=== PATIENT | female | born 2005 | race Caucasian/White ===

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

== ENCOUNTER → 2024-01-08 | Outpatient (CLI) | payer MEDICAID, SELFPAY ==
[2024-01-12 21:07] LABS: Chlamydia By Nucleic Acid AMP Negative (Negative); Gonococcus By Nucleic Acid AMP Negative (Negative)
== END | disposition home or self-care (01) ==
LOC: LABSPEC 14:58
PROVIDERS: Referring Provider Nurse Practitioner Women's Health; Visit Provider Nurse Practitioner Women's Health
DX: Z11.3 Encounter for screening for infections with a predominantly sexual mode of transmission (principal)
CPT/HCPCS: 87491; 87591

== ENCOUNTER 2024-02-26 00:46 | Emergency (ER) | payer MEDICAID, SELFPAY ==
[2024-02-26 00:47] VITALS: BP 154/92; PULSE 121; RESP 20; TEMP 36.6; O2SAT 98; BMI 30.3
[2024-02-26 01:46] VITALS: BP 127/61; PULSE 92; RESP 16; O2SAT 99
--- NOTE | 2024-02-26 02:01 | EX.ED.DYSGE1 ---
HPI History of Present Illness Chief Complaint: Allergic Reaction Narrative Narrative: Chief complaint and HPI: Allergic reaction/urticaria. 18-year-old female presents for evaluation of urticaria/allergic reaction. Patient states that she got into her bed this evening when she developed diffuse urticaria. Urticaria is pruritic. She denies any shortness of breath, wheezing, stridor, nausea, vomiting, abdominal pain, chest pain, cough. Patient denies any new medications or foods. Denies any new body products or detergents/soaps. Patient did not take anything prior to arrival. Review of systems: See HPI Medications: As listed on the chart Allergies: As listed on the chart PFSH: Per chart Vital signs: As listed on the chart. Reviewed. Physical exam: Gen: A&O x3, NAD Head: Normocephalic, atraumatic Eyes: No sclera icterus, conjunctiva clear, PERRL, EOMI ENT: Moist mucous membranes, posterior oropharynx unremarkable, uvula midline, tonsils not enlarged, no tongue enlargement, tolerating secretions, no angioedema Neck: Trachea midline, No JVD, Full ROM, no swelling CV: RRR, no murmurs, no peripheral edema Resp: Lungs CTA BL, no w/r/c, no stridor GI: Abd soft, non-distended, non-tender, no r/r/g Musc: Full ROM, no deformity Skin: Warm, dry, scattered urticaria mostly on the bilateral arms and back Neuro: Alert, oriented, grossly intact, sensation intact Psych: Cooperative, appropriate mood and affect [facility] Medical History (Updated 02/26/24 @ 01:[address] Jaime Calderon, ) Severe pre-eclampsia delivery delivered Not immune to rubella Decreased movement Pre-eclampsia Gestational HTN Unknown varicella vaccination status Instability of right patellofemoral joint Right knee pain Instability of left patellofemoral joint Left knee pain Home Medications ?Medication ?Instructions ?Recorded ?Last Taken ?Type norethindrone (contraceptive) 0.35 0.35 mg PO QDAY #84 tabs 01/08/24 Unknown Rx mg tablet (Ashley) prednisone 20 mg tablet 40 mg (2 x 20 mg) PO DAILY 5 days 02/26/24 Unknown Rx #10 tabs Allergy/AdvReac Type Severity Reaction Status Date / Time No Known Allergies Allergy Verified 02/26/24 00:47 Social History adopted: No household members: family current occupational status: employed 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 current occupational exposures/hazards: No pets and animals: Yes (Avoid litterbox) pets and animals: cat(s) and dog(s) history of recent travel: No sexually active: Yes Smoking Status: Former smoker Tobacco: How many years used: 6 Electronic Cigarette Use: with nicotine how long ago did patient quit smokin month ago alcohol intake: current alcohol intake frequency: holidays/special occasions only details: not while substance use type: marijuana well-balanced diet: daily or most days caffeine: No eating out: 1-3 times/week during the past year weight has: remained stable what type of physical activity do you participate in: none dimple/restorationist: None seatbelt use: always do you feel safe at home: Yes additional social history: FOB Chad Scott- not really involved EXAM Physical Exam Const Vital Signs: 02/26/24 00:47 02/26/24 01:46 02/26/24 02:05 Temperature 97.9 F 98.8 F Temperature Source Oral Pulse Rate 121 H 92 77 Respiratory Rate 20 H 16 18 Blood Pressure 154/92 H 127/61 H 122/86 H Blood Pressure Mean 112 83 98 Pulse Ox 98 99 99 Oxygen Delivery Method Room Air Room Air MDM MDM MDM Narrative Medical decision making narrative: 18-year-old female presents for evaluation of urticaria/allergic reaction. See physical exam findings. Patient has diffuse urticaria. No signs or symptoms of anaphylactic reaction. Nontoxic. No acute distress. Patient has not taken anything for her pruritus or urticaria. Patient given p.o. Benadryl as well as p.o. prednisone. She was educated to go home and wash her bedding as this may have been the cause of her allergic reaction. Follow-up with primary care physician. She was educated to take [id number] Benadryl as needed. Will put her on a 5-day course of prednisone. She confirmed understanding the plan. Patient stable to discharge home. Impression: 1. Allergic reaction, unknown source 2. Urticaria Discharge Plan Triage Chief Complaint: Allergic Reaction ED Provider: Jaime Calderon Dx/Rx/DC Orders Clinical Impression: Allergic reaction Instructions: ED General Allergic Reactions Prescriptions: New prednisone 20 mg tablet 40 mg PO DAILY 5 Days Qty: 10 0RF No Action norethindrone (contraceptive) [Ashley] 0.35 mg tablet 0.35 mg PO QDAY Qty: 84 4RF Rx Instructions: start day 1 of menstrual cycle Stand Alone Forms: ED Work / School Excuse Primary Care Provider: Care Physician,No Primary Referrals: Cristino Waters MD [Med Staff - Active Staff] - Care Physician,No Primary [Primary Care Provider] - Activity Restrictions/Additional Instructions: Return back to the emergency department if symptoms change or worsen. Follow-up with your PCP. If you do not have 1 follow-up with the 1 listed above. Lzta-hrc-[id number] Benadryl as needed for itching. Print Language: Prydeinig Disposition Disposition: Home, Self Care Discharge Date/Time: 02/26/24 02:11
[2024-02-26] MEDS: predniSONE 20 MG Tablet 40 MG PO (02:04)
[2024-02-26] MEDS: DiphenhydrAMINE 25 MG Capsule 50 MG PO (02:04)
[2024-02-26 02:05] VITALS: BP 122/86; PULSE 77; RESP 18; TEMP 37.1; O2SAT 99
== END 2024-02-26 02:11 | disposition home or self-care (01) ==
LOC: ED 02:08
PROVIDERS: Emergency Provider Surgery; Visit Provider Surgery
DX: L50.0 Allergic urticaria (principal); Z87.891 Personal history of nicotine dependence
CPT/HCPCS: 99284; A4216

== ENCOUNTER 2024-09-25 15:32 | Emergency (ER) | payer MEDICAID, SELFPAY ==
[2024-09-25 15:32] VITALS: BP 160/98; PULSE 120; RESP 18; TEMP 37.1; O2SAT 99; BMI 27.6
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
--- NOTE | 2024-09-25 15:45 | RAD_ITS ---
PROCEDURE: KNEE 4 OR MORE VIEWS 09/25/2024 REASON FOR EXAM: INJURY/PAIN TECHNIQUE: KNEE 4 OR MORE VIEWS COMPARISON: 05/27/2022 FINDINGS: BONES: Sliver of bone measuring 4.6 mm in the region of the posterior joint seen on the lateral view. This is not seen on the other views and was not present on the prior study. Old fracture in the medial aspect of the patella. JOINTS: No significant joint effusion. No dislocation. The joint spaces are preserved. SOFT TISSUES: The soft tissues are unremarkable. RAD/Knee 4 or More Views IMPRESSION: Bones sliver over the posterior joint on the lateral view, not seen on the prio r study. A cortical avulsion fracture is possible. Correlate clinically for pain in this region. Reading Location: [id number]
--- OUTSIDE RECORDS SUMMARY | 2024-09-25 16:00 | XMS RPT_ITS | CCD ---
Author Organization [facility] Care Team Providers Care Equipment Service Engineer Name Role Phone Care Physician, No Primary Primary Care Provider Unavailable Care Physician, No Primary Referring Provider Un available ANABELLE Whittington Attending Provider NO PRIMARY CARE, MD Primary Care Unavailable TIFFANIE BRUNO Referring Unavailab HERBERT Jordan Attending Unavailable Care Physician, No Primary Primary Care Provider Unavailable Dr. Jaime Calderon DO Attending Provider Dr. Jaime Calderon DO Emergency Provider Care Physician, No Primary Referring Provider Un available Valentina Whittington CNM Attending Provider Valentina Whittington Referring Unavailable Valentina Whittington Attending Unavailable Care Physician, No Primary Primary Care Unava ilable Care Physician, No Primary Primary Care Unava ilable Jaime Calderon Attending Unavailabl e Eunice CUSTOMER EXPERIENCE PROFESSIONAL, Aleisha Attending Unavailable Eunice CUSTOMER EXPERIENCE PROFESSIONAL, Aleisha Referring Unavailable Care Physician, No Primary Primary Care Unava ilable Care Physician, No Primary Primary Care Unava ilable Narciso Perkins Attending Unavailable Care Physician, No Primary Referring Unava ilable Tiffanie Barrios Attending Unavailabl e Tiffanie Barrios Admitting Unavailabl e Tiffanie Barrios Referring Unavailabl e Care Physician, No Primary Primary Care Unava ilable Care Physician, No Primary Primary Care Unava ilable Narciso Perkins Referring Unavailable Narciso Perkins Attending Unavailable Care Physician, No Primary Primary Care Unava ilable Program, Patient Link Attending Unavailabl e Program, Patient Link Referring Unavailabl e Care Physician, No Primary Primary Care Unava ilable Terri Gaspar Attending Unavailable [place] CUSTOMER EXPERIENCE PROFESSIONAL, Aleisha Attending Unavailable Care Physician, No Primary Primary Care Unava ilable Eunice CUSTOMER EXPERIENCE PROFESSIONAL, Aleisha Referring Unavailable Care Physician, No Primary Primary Care Unava ilable Valentina Whittington Attending Unavailable Care Physician, No Primary Referring Unava ilable Mayrae Tiffanie Reese Attending Unavailabl e Care Physician, No Primary Referring Unava ilable Care Physician, No Primary Primary Care Unava ilable Mayrae Veljulia, Tiffanie Attending Unavailabl e Care Physician, No Primary Primary Care Unava ilable Care Physician, No Primary Referring Unava ilable Darby Reese, Tiffanie Consulting Unavailabl e Vande Veljulia, Tiffanie Admitting Unavailabl e Vande Veljulia, Tiffanie Referring Unavailabl e Valentina Whittington Attending Unavailable Care Physician, No Primary Primary Care Unava ilable Vande Veljulia, Tiffanie Attending Unavailabl e Vande Velde, Tiffanie Consulting Unavailabl e Vande Velde, Tiffanie Referring Unavailabl e Care Physician, No Primary Primary Care Unava ilable Brianne Dickey Attending Unavailable Marcanthshaquille, Brianne Consulting Unavailable Care Physician, No Primary Primary Care Unava ilable Brianne Dickey Referring Unavailable Mayrae Veljulia, Tiffanie Attending Unavailabl e Vande Velde, Tiffanie Referring Unavailabl e Care Physician, No Primary Primary Care Unava ilable Marcanthony, Brianne Referring Unavailable Brianne Dickey Attending Unavailable Care Physician, No Primary Primary Care Unava ilable MarcanthonyBrianne Referring Unavailable MarcanthBrianne corbin Attending Unavailable Care Physician, No Primary Primary Care Unava ilable Care Physician, No Primary Primary Care Unava ilable Care Physician, No Primary Referring Unava ilable Eunice CUSTOMER EXPERIENCE PROFESSIONAL, Aleisha Attending Unavailable Vande Veljulia, Tiffanie Attending Unavailabl e Care Physician, No Primary Primary Care Unava ilable Care Physician, No Primary Referring Unava ilable MarcanthBrianne corbin Attending Unavailable MarcanthBrianne corbin Referring Unavailable Care Physician, No Primary Primary Care Unava ilable Tiffanie Barrios Attending Unavailabl e Valentina Whittington Referring Unavailable Valentina Whittington Consulting Unavailable Care Physician, No Primary Primary Care Unava ilable Vande Veljulia, Tiffanie Attending Unavailabl e Vande Velde, Tiffanie Referring Unavailabl e Care Physician, No Primary Primary Care Unava ilable Terri Gaspar Consulting Unavailable Care Physician, No Primary Primary Care Unava ilable Terri Gaspar Attending Unavailable Care Physician, No Primary Primary Care Unava ilable Care Physician, No Primary Attending Unava ilable Care Physician, No Primary Primary Care Unava ilable Care Physician, No Primary Referring Unava ilable Austin CUSTOMER EXPERIENCE PROFESSIONAL, Aleisha Attending Unavailable [place] CUSTOMER EXPERIENCE PROFESSIONAL, Aleisha Attending Unavailable Care Physician, No Primary Primary Care Unava ilable Care Physician, No Primary Referring Unava ilable Care Physician, No Primary Primary Care Unava ilable Care Physician, No Primary Referring Unava ilable Fabian LEE, Narciso Attending Unavailable Tiffanie Barrios Attending Unavailabl e Care Physician, No Primary Primary Care Unava ilable Care Physician, No Primary Referring Unava ilable Care Physician, No Primary Primary Care Unava ilable Care Physician, No Primary Referring Unava ilable Eunice CUSTOMER EXPERIENCE PROFESSIONAL, Aleisha Attending Unavailable Brianne Dickey Attending Unavailable Care Physician, No Primary Primary Care Unava ilable Care Physician, No Primary Referring Unava ilable Valentina Whittington Attending Unavailable Care Physician, No Primary Referring Unava ilable Care Physician, No Primary Primary Care Unava ilable Care Physician, No Primary Primary Care Unava ilable Care Physician, No Primary Referring Unava ilable Terri Gaspar Attending Unavailable Eunice CUSTOMER EXPERIENCE PROFESSIONAL, Aleisha Attending Unavailable Care Physician, No Primary Primary Care Unava ilable Care Physician, No Primary Referring Unava ilable Valentina Whittington Attending Unavailable Care Physician, No Primary Primary Care Unava ilable Care Physician, No Primary Referring Unava ilable Eunice CUSTOMER EXPERIENCE PROFESSIONAL, Aleisha Attending Unavailable Care Physician, No Primary Primary Care Unava ilable Care Physician, No Primary Referring Unava ilable Tiffanie Barrios Attending Unavailabl e Care Physician, No Primary Primary Care Unava ilable Care Physician, No Primary Referring Unava ilable Medications Current Medications Medication Drug Class(es) Dates Sig (Normalized) Sig (Original) [place] (Nk) (4 sources) Start: 04-14-2023 [place] (Nk) A ctive April 14, 2023 1:00am Start: 04-14-2023 [place] (Nk) A ctive April 14, 2023 12:00am Pnv No.[id number]-Am-[id number]-Dha-[id number]-Fi sh (3 sources) Start: 05-16-2023 Pnv No.162-Wd-[id number]-Bfa-Lwp-Nktt Active TABLET PO May 16, 2023 12:00am predniSONE 20 mg oral tablet (1 source) Start: 02-26-2024 take 2 tablets by mouth once daily Prednisone 20 mg tablet Active 40 mg PO DAILY 10 February 26, 2024 1:00am Completed/Discontinued Medications Medication Drug Class(es) Dates Sig (Normalized) Sig (Original) acetaminophen 500 mg oral tablet (1 source) Start: 12-04-2023 End: 01-08-2024 Acetaminophen (Acetaminophen Pain Relief) 500 mg tablet Discontinued 1000 mg PO EVERY 6 HOURS as needed for pain December 04, 2023 12:00am January 08, 2024 2:18pm acetaminophen 325 mg / oxyCODONE hydrochloride 5 mg oral tablet (1 source) Opioid Agonist Start: 11-28-2023 End: 01-08-2024 Oxycodone-Acetamino phen (Percocet) 5-325 mg tablet Discontinued 1 {tbl} PO EVERY 6 HOURS as needed for pain 12 09November 28, 2023 January 08, 2024 2:18pm Breast Pump device (1 source) Start: 10-02-2023 End: 01-08-2024 Breast Pump device Discontinued 0 .ROUTE .MEDSUPPLY October 02, 2023 12:00am January 08, 2024 2:18pm As directed labetalol hydrochloride 300 mg oral tablet (3 sources) beta-Adrenergic Clint Start: 12-03-2023 End: 01-02-2024 take 1 tablet by mouth three times daily Labetalol 300 mg tablet Discontinued 300 mg PO THREE TIMES A DAY 90 December 03, 2023 10:15am January 01, 2024 1:00am January 02, 2024 1:08am Start: 12-01-2023 End: 12-03-2023 take 1 tablet by mouth three times daily Labetalol 200 mg Tablet Discontinued 200 mg PO THREE TIMES A DAY 90 December 01, 2023 12:00am December 03, 2023 10:06am metroNIDAZOLE 500 mg oral tablet (1 source) Nitroimidazole Antimicrobial Start: 10-16-2023 End: 10-23-2023 take 1 tablet by mouth twice daily Metronidazole 500 mg tablet Discontinued 500 mg PO TWICE A DAY 14 October 16, 2023 12:00am October 22, 2023 12:00am October 23, 2023 12:03am naproxen 500 mg oral tablet (10 sources) Nonsteroidal Anti-inflammatory Drug Start: 11-28-2023 End: 01-08-2024 take 1 tablet by mouth twice daily as needed for pain Naproxen 500 mg tablet Discontinued 500 mg PO TWICE DAILY NEEDED as needed for Pain November 28, 2023 12:00am January 08, 2024 2:18pm Start: 05-27-2022 End: 04-14-2023 take 1 tablet by mouth twice daily as needed for pain Naproxen 500 mg tablet Discontinued 500 mg PO TWICE A DAY as needed for pain May 27, 2022 9:49am April 14, 2023 6:17pm norethindrone 0.35 mg oral tablet (1 source) Start: 01-08-2024 End: 03-04-2024 take 1 tablet by mouth once daily Norethindrone (Contraceptive) (Ashley) 0.35 mg tablet Discontinued 0.35 mg PO daily January 08, 2024 1:00am March 04, 2024 5:10pm start day 1 of menstrual cycle ondansetron 4 mg disintegrating oral tablet (13 sources) Serotonin-3 Receptor Antagonist Start: 05-07-2023 End: 10-19-2023 take 1 tablet by mouth every six hours as needed for nausea and vomiting Ondansetron 4 mg tablet,disintegratin g Discontinued 4 mg PO EVERY 6 HOURS as needed for nausea and vomiting May 07, 2023 12:00am October 19, 2023 3:20pm Start: 04-18-2020 End: 06-17-2022 take 1 tablet by mouth every eight hours as needed for nausea Ondansetron 4 MG tablet Discontinued 4 mg PO EVERY 8 HOURS NEEDED as needed for Nausea April 18, 2020 1:00am June 17, 2022 8:03am Pnv No.776-Gf-Ji3-Zpq-Nkw-Rvew 180 mcg-35 mg- 25 mg-5 mg tablet,chewable (1 source) Start: 05-16-2023 End: 12-04-2023 Pnv No.488-Gs-Xs1-Wbh-Uzk-Nghs 180 mcg-35 mg- 25 mg-5 mg tablet,chewable Discontinued 1 {tbl} PO DAILY May 16, 2023 12:00am December 04, 2023 2:59pm traMADol hydrochloride 50 mg oral tablet (9 sources) Opioid Agonist Start: 04-18-2020 End: 04-21-2020 take 1 tablet by mouth every four hours as needed for pain Tramadol 50 MG tablet Discontinued 50 mg PO EVERY 4 HOURS NEEDED as needed for Pain 12 3 April 18, 2020 1:00am April 20, 2020 1:00am April 21, 2020 1:03am Problems Active Problems Problem Classification Problem Date Documented Date Episodic/Chronic Allergic reactions (2 sources) Allergic reaction; Translations: [Allergy, unspecified, initial encounter] Onset: 03-24-2024 03-05-2024 Episodic Contraceptive and procreative management (7 sources) Patient encounter status; Translations: [Encounter for initial prescription of implantable subdermal contraceptive] Onset: 10-16-2023 03-04-2024 Episodic Fracture of lower limb (9 sources) Closed fracture of patella; Translations: [Unspecified fracture of right patella, initial encounter for closed fracture] 05-27-2022 Episodic Hypertension complicating ; childbirth and the puerperium (1 source) Unspecified maternal hypertension, third trimester; Translations: [Unspecified maternal hypertension, third trimester] Onset: 12-08-2023 Chronic Other complications of ; puerperium affecting management of mother (1 source) Deliveries by ; Translations: [Encounter for delivery without indication] 01-08-2024 Episodic Comment on above: iol IUGR SM for KW p reeclampsia Other complications of ; puerperium affecting management of mother (1 source) Late heart deceleration 01-08-2024 Episodic Other complications of (3 sources) High risk ; Translations: [Supervision of high risk , unspecified, unspecified trimester] 05-16-2023 Episodic Other complications of (3 sources) Supervision of high risk , unspecified, unspecified trimester; Translations: [Supervision of unspecified high-risk ] 05-20-2023 Episodic Other complications of (1 source) Reduced movement; Translations: [Decreased movements, unspecified trimester, not applicable or unspecified] 12-01-2023 Episodic Comment on above: reactive nst. safe f or dc home Other non-traumatic joint disorders (9 sources) Effusion of right knee joint; Translations: [Effusion, right knee] 05-27-2022 Episodic Other non-traumatic joint disorders (8 sources) Instability of left patellofemoral joint; Translations: [Other instability, left knee] 06-17-2022 Episodic Other non-traumatic joint disorders (8 sources) Instability of right patellofemoral joint; Translations: [Other instability, right knee] 06-17-2022 Episodic Other non-traumatic joint disorders (16 sources) Pain in left knee; Translations: [Left knee pain] 06-17-2022 Episodic Residual codes; unclassified (4 sources) Varicella status; Translations: [Other specified health status] 05-16-2023 Episodic Comment on above: immune Residual codes; unclassified (3 sources) Rubella non-immune; Translations: [Other specified health status] 06-02-2023 Episodic Comment on above: offer MMR Sprains and strains (9 sources) Sprain of knee; Translations: [Sprain of unspecified site of right knee, initial encounter] 05-27-2022 Episodic Substance-related disorders (9 sources) Cannabis abuse; Translations: [Cannabis dependence, in remission] Onset: 11-27-2023 05-21-2023 Chronic Comment on above: Positive at NOB. ran dom screens -quit in mar. Used multiple times a day since 12. Tox 07/14/23:negative Unclassified (1 source) Other specified diseases and conditions complicating puerperium; Translations: [Other specified diseases and conditions complicating puerperium] Onset: 12-24-2023 Past or Other Problems Problem Classification Problem Date Documented Date Episodic/Chronic Administrative/social admission (2 sources) Encounter for pre-employment examination; Translations: [Encounter for pre-employment examination] Onset: 01-15-2024 Episodic Diabetes or abnormal glucose tolerance complicating ; childbirth; or the puerperium (3 sources) Abnormal glucose level; Translations: [Abnormal glucose complicating ] Onset: 11-27-2023 01-08-2024 Episodic Comment on above: normal 3 hr GTT Hypertension complicating ; childbirth and the puerperium (7 sources) -induced hypertension; Translations: [Gestational [-induced] hypertension without significant proteinuria, unspecified trimester] Onset: 11-18-2023 01-08-2024 Episodic Comment on above: left AMA. labetalol , procardia Immunizations and screening for infectious disease (2 sources) Encounter for screening for infections with a predominantly sexual mode of transmission; Translations: [Encounter for immunization] Onset: 10-02-2023 Episodic Other circulatory disease (1 source) Other specified symptoms and signs involving the circulatory and respiratory systems; Translations: [Other specified symptoms and signs involving the circulatory and respiratory systems] Onset: 01-15-2024 Episodic Other complications of ; puerperium affecting management of mother (1 source) Encounter for delivery without indication; Translations: [Encounter for delivery without indication] Onset: 12-24-2023 Episodic Other complications of (2 sources) Supervision of high risk , unspecified, third trimester; Translations: [Supervision of high risk , unspecified, third trimester] Onset: 12-17-2023 Episodic Other complications of (2 sources) Decreased movements, unspecified trimester, not applicable or unspecified; Translations: [Decreased movements, unspecified trimester, not applicable or unspecified] Onset: 11-27-2023 Episodic Other complications of (1 source) Decreased movements, third trimester, not applicable or unspecified; Translations: [Decreased movements, third trimester, not applicable or unspecified] Onset: 10-29-2023 Episodic Other complications of (1 source) Supervision of high risk , unspecified, second trimester; Translations: [Supervision of high risk , unspecified, second trimester] Onset: 10-30-2023 Episodic Other and delivery including normal (7 sources) ; Translations: [Encounter for supervision of normal , unspecified, unspecified trimester] Onset: 12-23-2023 05-16-2023 Episodic Residual codes; unclassified (3 sources) Other specified health status; Translations: [Other specified conditions influencing health status] Onset: 11-27-2023 05-20-2023 Episodic Residual codes; unclassified (2 sources) 36 weeks gestation of ; Translations: [36 weeks gestation of ] Onset: 11-27-2023 Episodic Residual codes; unclassified (2 sources) 32 weeks gestation of ; Translations: [32 weeks gestation of ] Onset: 11-18-2023 Episodic Residual codes; unclassified (1 source) 30 weeks gestation of ; Translations: [30 weeks gestation of ] Onset: 10-16-2023 Episodic Residual codes; unclassified (1 source) 25 weeks gestation of ; Translations: [25 weeks gestation of ] Onset: 09-12-2023 Episodic Screening and history of mental health and substance abuse codes (9 sources) Health-related behavior finding; Translations: [Personal history of nicotine dependence] Onset: 11-27-2023 05-16-2023 Episodic Comment on above: quit 1 month ago. Do ing well/not smoking Results Test Name Value Interpretation Reference Range Facility Laboratory - Chemistry and C hemistry - challengeon 03-04-2024 HCG ( test) Ql (U) Negative [facility] Dressing Room Attendant Office Visit Reporton 03-04-2024 Dressing Room Attendant Office Visit Report [facility] [address], [address] [place] [address] OFFICE VISIT Date of Service: 03/04/24 MR#: [id number] Acct: [id number] Name: KATHLEEN POWELL NEEL Rep #: [id number] : 2005 Provider: ANABELLE Oglesby ams Age/Sex: 18/F Location: [facility] Status: Signed Intake Vital Signs 01/08/24 13:20 02/26/24 00:47 03/04/24 16:09 03/04/24 16:13 Height 5 ft 5 in 5 ft 5 in 5 ft 5 in 5 ft 5 in Weight: 180 lb BMI 29.9 BP 137/87 H Intake Visit Reasons: Nexplanon insertion Associate Entertainment Editor Required: No Is patient in pain?: No Allergies No Known Allergies Allergy (Verified 03/04/24 16:10) Medications ???Medication ???Instructions ???Recorded ???Confirmed ???Type prednisone 20 mg tablet 40 mg (2 x 20 mg) PO DAILY 5 days 02/26/24 03/04/24 Rx #10 tabs Patient : No Control Method: Nexplanon insert today 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 current occupational exposures/hazards: No pets and animals: Yes (Avoid litterbox) pets and animals: cat(s) and dog(s) history of recent travel: No sexually active: Yes Smoking Status: Former smoker Tobacco: How many years used: 6 Electronic Cigarette Use: with nicotine how long ago did patient quit smokin month ago alcohol intake: current alcohol intake frequency: holidays/special occasions only details: not while substance use type: marijuana well-balanced diet: daily or most days caffeine: No eating out: 1-3 times/week during the past year weight has: remained stable what type of physical activity do you participate in: none dimple/amish: None seatbelt use: always do you feel safe at home: Yes additional social history: FOB [place]- not really involved History 1 Elective abortions Hx Para 1 Spontaneous abortions Hx # Term Pregnancies Ectopic pregnancies Hx # Pregnancies 1 Multiple births # of living children 1 Past Pregnancies Del. Date Name GA/Weeks Outcome Route Bth Weight Gen Labor Lgth Anesthesia Del Locatn Provider FOB 11/28/23 Zac 36 live - full term 5lb 15.5oz Male epidural [facility] Delivery Date: 11/28/23 Last Updated by: Shweta Ellis RN See problem list for complications and, IOL IUGR SM for KW preeclampsia HPI Nexplanon insertion Details: KATHLEEN POWELL is a 18 year old who presents for Nexplanon insertion. UPT neg ROS Const Constitutional: Reports system reviewed and no additional complaints, except as documented Cardio Card: Reports system reviewed and no additional complaints, except as documented Resp Resp: Reports system reviewed and no additional complaints, except as documented GI GI: Reports system reviewed and no additional complaints, except as documented : Reports system reviewed and no additional complaints, except as documented Musc Musc: Reports system reviewed and no additional complaints, except as documented Skin Skin/Breast: Reports system reviewed and no additional complaints, except as documented Neuro Neuro: Reports system reviewed and no additional complaints, except as documented Psych Psych: Reports system reviewed and no additional complaints, except as documented Endo Endo: Reports system reviewed and no additional complaints, except as documented Reza/Lymph Hematologic/Lymphatic: Reports system reviewed and no additional complaints, except as documented Aller/Immun Allergic/Immunologic: Reports system reviewed and no additional complaints, except as documented Exam Const General: cooperative, healthy appearing and comfortable Neck Neck: normal visual inspection and full ROM Resp Effort Inspection: normal respiratory effort, able to speak in complete sentences and symmetric chest movement GI Inspection: normal to inspection Palpation: soft Neuro General: patient alert, patient awake and patient oriented x3 Cognition: normal cognition Speech: speech normal Gait: normal gait Extrem General: normal to inspection and full ROM Psych Appearance: grossly normal and well kempt Mental Status: mental status grossly normal Mood: congruent mood Affect: normal affect Speech and Movement: speech and movement normal Attitude: cooperative Thoug (more content not included)... Normal [facility] Emergency Department Summary on 02-26-2024 Emergency Department Summary [facility] Medical Records Department [address] [place] [address] Emergency Department Summary 02/26/24 MR#: [id number] Acct: [id number] Name: KATHLEEN POWELL NEEL Rep #: [id number] : 2005 18 From: Jaime Calderon DO PCP: Care Physician,No Primary Status:DEP ER Location: ED HPI History of Present Illness Chief Complaint: Allergic Reaction Narrative Narrative: Chief complaint and HPI: Allergic reaction/urticaria. 18-year-old female presents for evaluation of urticaria/allergic reaction. Patient states that she got into her bed this evening when she developed diffuse urticaria. Urticaria is pruritic. She denies any shortness of breath, wheezing, stridor, nausea, vomiting, abdominal pain, chest pain, cough. Patient denies any new medications or foods. Denies any new body products or detergents/soaps. Patient did not take anything prior to arrival. Review of systems: See HPI Medications: As listed on the chart Allergies: As listed on the chart PFSH: Per chart Vital signs: As listed on the chart. Reviewed. Physical exam: Gen: A O x3, NAD Head: Normocephalic, atraumatic Eyes: No sclera icterus, conjunctiva clear, PERRL, EOMI ENT: Moist mucous membranes, posterior oropharynx unremarkable, uvula midline, tonsils not enlarged, no tongue enlargement, tolerating secretions, no angioedema Neck: Trachea midline, No JVD, Full ROM, no swelling CV: RRR, no murmurs, no peripheral edema Resp: Lungs CTA BL, no w/r/c, no stridor GI: Abd soft, non-distended, non-tender, no r/r/g Musc: Full ROM, no deformity Skin: Warm, dry, scattered urticaria mostly on the bilateral arms and back Neuro: Alert, oriented, grossly intact, sensation intact Psych: Cooperative, appropriate mood and affect [facility] Medical History (Updated 02/26/24 @ 01:[address] Jaime Caldreon, DO) Severe pre-eclampsia delivery delivered Not immune to rubella Decreased movement Pre-eclampsia Gestational HTN Unknown varicella vaccination status Instability of right patellofemoral joint Right knee pain Instability of left patellofemoral joint Left knee pain Home Medications ???Medication ???Instructions ???Recorded ???Last Taken ???Type norethindrone (contraceptive) 0.35 0.35 mg PO QDAY #84 tabs 01/08/24 Unknown Rx mg tablet (Ashley) prednisone 20 mg tablet 40 mg (2 x 20 mg) PO DAILY 5 days 02/26/24 Unknown Rx #10 tabs Allergy/AdvReac Type Severity Reaction Status Date / Time No Known Allergies Allergy Verified 02/26/24 00:47 Social History adopted: No household members: family current occupational status: employed 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 current occupational exposures/hazards: No pets and animals: Yes (Avoid litterbox) pets and animals: cat(s) and dog(s) history of recent travel: No sexually active: Yes Smoking Status: Former smoker Tobacco: How many years used: 6 Electronic Cigarette Use: with nicotine how long ago did patient quit smokin month ago alcohol intake: current alcohol intake frequency: holidays/special occasions only details: not while substance use type: marijuana well-balanced diet: daily or most days caffeine: No eating out: 1-3 times/week during the past year weight has: remained stable what type of physical activity do you participate in: none dimple/amish: None seatbelt use: always do you feel safe at home: Yes additional social history: FOB Chad Chavez- not really involved EXAM Physical Exam Const Vital Signs: 02/26/24 00:47 02/26/24 01:46 02/26/24 02:05 Temperature 97.9 F 98.8 F Temperature Source Oral Pulse Rate 121 H 92 77 Respiratory Rate 20 H 16 18 Blood Pressure 154/92 H 127/61 H 122/86 H Blood Pressure Mean 112 83 98 Pulse Ox 98 99 99 Oxygen Delivery Method Room Air Room Air MDM MDM MDM Narrative Medical decision making narrative: 18-year-old female presents for evaluation of urticaria/allergic reaction. See physical exam findings. Patient has diffuse urticaria. No signs or symptoms of anaphylactic reaction. Nontoxic. No acute distress. Patient has not taken anything for her pruritus or urticaria. Patient given p.o. Benadryl as well as p.o. prednisone. She was educated to go home and wash her bedding as this may have been the cause of her allergic reaction. Follow-up with primary care physician. She was educated to take lzip-lir-lwbrqcy Benadryl as needed. Will put her on a 5-day course of prednisone. She confirmed understanding the plan. Patient stable to discharge home. Impression: 1. Allergic reaction, unknown source 2. Urticaria Discharge Plan Triage Chief Complaint: Allergic Reaction ED Provider: Jaime Calderon Dx/Rx/DC Orders C (more content not included)... Normal [facility] Quantiferon TB-Gold+on 01-16 QFT MITOGEN JUSTIN > 10.00 Normal . [facility] Comment on above: Performed By: #### L 3400.8000 #### [facility] [address] [place], [place], [id number] QFT NIL VALUE 0.02 IU/mL Normal . [facility] Comment on above: Performed By: #### L 3400.8000 #### [facility] [address] [place], [place], [id number] QFT TB GOLD+ Comment Normal . [facility] Comment on above: Result Comment: Baldo tiFERON-TB Gold Plus is a qualitative indirect test for M tuberculosis infection (including disease) and is intended for use in conjunction with risk assessment, radiography, and other medical and diagnostic evaluations. The QuantiFERON-TB Gold Plus result is determined by subtracting the Nil value from either TB antigen (Ag) value. The Mitogen tube serves as a control for the test. Performed By: #### L 3400.8000 #### [facility] [address] [place], [place], [id number] QFT TB POS CRIT Negative Normal Negative [facility] Comment on above: Result Comment: No r esponse to M tuberculosis antigens detected. Infection with M tuberculosis is unlikely, but high risk individuals should be considered for additional testing (ATS/IDSA/CDC Clinical Practice Guidelines, 2017). The reference range is an Antigen minus Nil result of <0.35 IU/mL. The specimen received for QuantiFERON testing was incubated by the ordering institution. Specific procedures outlined in our Directory of Services and in the package insert for the QuantiFERON Gold (In Tube) test must be followed to enable for proper stimulation of cells for the production of interferon gamma. Chemiluminescence immunoassay methodology Performed at: [facility] [address] [id number] Etl Analyst: Herman Falcon PhD, Phone: [phone] Performed By: #### L [id number] #### [facility] [address] [place], [address] QFT TB1+ AG JUSTIN 0.01 IU/mL Normal . [facility] Comment on above: Performed By: #### L [id number] #### [facility] [address] [place], [place], [id number] QFT TB2+ AG JUSTIN 0.01 IU/mL Normal . [facility] Comment on above: Performed By: #### L [id number] #### [facility] [address] [facility] [place], [place], [id number] Office Visit Reporton 2023 Office Visit Report [facility] [address] [place] [address] [place] [address] OFFICE VISIT Date of Service: 01/15/24 MR#: [id number] Acct: [id number] Patient: KATHLEEN POWELL NEEL Rep #: [id number] : 2005 Provider: ROSA Dent Age/Sex: 18/F Location: [facility] Status: Signed Intake Vital Signs 01/08/24 13:20 Height 5 ft 5 in Intake Visit Reasons: FIT TEST, QUANTIFERON/ [place] Chief Complaint: 6 Week PP Allergies No Known Allergies Allergy (Verified 01/08/24 13:10) Office Procedures [facility] Billing Sheet Testing Pre-Employment PE: Yes Respirator Fit Testing: Yes Occquant-Quantiferon: Yes 01/16/24 0752 Date Narciso LEE Cosigner Signature: Date (if applicable) CC: Normal [facility] Urgent Care Visit Reporton 1 03-16-2023 Urgent Care Visit Report [facility] [address], [address] [place] [address] OFFICE VISIT Date of Service: 01/15/24 MR#: [id number] Acct: [id number] Name: KATHLEEN POWELL NEEL Rep #: [id number] : 2005 Provider: ROSA Dent Age/Sex: 18/F Location: [facility] Status: Signed Intake Vital Signs 01/08/24 13:20 Height 5 ft 5 in Intake Visit Reasons: PE NON DOT PHYSICAL/ [place] Allergies No Known Allergies Allergy (Verified 01/08/24 13:10) [facility] Medical History (Updated 01/15/24 @ 14:33 by Narciso LEE, PA) Severe pre-eclampsia delivery delivered Not immune to rubella Decreased movement Pre-eclampsia Gestational HTN Unknown varicella vaccination status Instability of right patellofemoral joint Right knee pain Instability of left patellofemoral joint Left knee pain Social History adopted: No household members: family current occupational status: employed 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 current occupational exposures/hazards: No pets and animals: Yes (Avoid litterbox) pets and animals: cat(s) and dog(s) history of recent travel: No sexually active: Yes Smoking Status: Former smoker Tobacco: How many years used: 6 Electronic Cigarette Use: with nicotine how long ago did patient quit smokin month ago alcohol intake: current alcohol intake frequency: holidays/special occasions only details: not while substance use type: marijuana well-balanced diet: daily or most days caffeine: No eating out: 1-3 times/week during the past year weight has: remained stable what type of physical activity do you participate in: none dimple/amish: None seatbelt use: always do you feel safe at home: Yes additional social history: BLAKE Chavez- not really involved HPI HPI Details: KATHLEEN POWELL, is a 18 F who presents to the office today for preemployment physical. Please see corresponding scanned documents with today's date. Coding Level of Care Code No Charge Diagnoses Encounter for pre-employment health screening examination Z02.1 Assessment and Plan Assessment and Plan (1) Encounter for pre-employment health screening examination: Status: Acute Orders: Orders Quantiferon TB-Gold+ Today Z02.1 - Encounter for pre-employment examination 01/15/24 1434 Date Narciso Harrison Signature: Date (if applicable) CC: Normal [facility] Chlamydia/GC MARCUS aptimaon CHLAMY,NUC ACID Negative Normal Negative [facility] Comment on above: Performed By: #### L [id number] #### [facility] [address] [place], [address] GC BY NUC ACID Negative Normal Negative [facility] Comment on above: Result Comment: Perf ormed at: =G - [facility] [address] [place] [id number] Etl Analyst: Tori Hester MD, Phone: [phone] Performed By: #### L 5490.8000 #### [facility] [address] [place], [address] Dressing Room Attendant Office Visit Reporton 01-08-2024 Dressing Room Attendant Office Visit Report [facility] [address], [address] [place] [address] OFFICE VISIT Date of Service: 01/08/24 MR#: [id number] Acct: [id number] Name: KATHLEEN POWELL NEEL Rep #: [id number] : 2005 Provider: CORNELIA aguilar Age/Sex: 18/F Location: [facility] [place] Status: Signed Intake Vital Signs 12/09/23 11:49 01/08/24 13:10 01/08/24 13:20 Height 5 ft 5 in 5 ft 5 in 5 ft 5 in Weight: 176 lb 182 lb 6 oz BMI 29.2 30.3 BP 136/88 H 138/84 H Intake Visit Reasons: visit (obstetrics) Chief Complaint: 6 Week PP Associate Entertainment Editor Required: No Is patient in pain?: No Allergies No Known Allergies Allergy (Verified 01/08/24 13:10) Medications ???Medication ???Instructions ???Recorded ???Confirmed ???Type norethindrone (contraceptive) 0.35 0.35 mg PO QDAY #84 tabs 01/08/24 01/08/24 Rx mg tablet (Ashley) Last Menstrual Period: 01/01/24 : No [facility] Medical History (Updated 01/08/24 @ 14:00 by Aleisha Dawson NP, AVTARC) Severe pre-eclampsia delivery delivered Not immune to rubella Decreased movement Pre-eclampsia Gestational HTN Unknown varicella vaccination status Instability of right patellofemoral joint Right knee pain Instability of left patellofemoral joint Left knee pain Social History adopted: No household members: family current occupational status: employed 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 current occupational exposures/hazards: No pets and animals: Yes (Avoid litterbox) pets and animals: cat(s) and dog(s) history of recent travel: No sexually active: Yes Smoking Status: Former smoker Tobacco: How many years used: 6 Electronic Cigarette Use: with nicotine how long ago did patient quit smokin month ago alcohol intake: current alcohol intake frequency: holidays/special occasions only details: not while substance use type: marijuana well-balanced diet: daily or most days caffeine: No eating out: 1-3 times/week during the past year weight has: remained stable what type of physical activity do you participate in: none dimple/amish: None seatbelt use: always do you feel safe at home: Yes additional social history: FOB Chad Scott- not really involved History 1 Elective abortions Hx Para 1 Spontaneous abortions Hx # Term Pregnancies Ectopic pregnancies Hx # Pregnancies 1 Multiple births # of living children 1 Past Pregnancies Del. Date Name GA/Weeks Outcome Route Bth Weight Gen Labor Lgth Anesthesia Del Locatn Provider FOB 11/28/23 [place] 36 live - full term 5lb 15.5oz Male epidural [facility] Delivery Date: 11/28/23 Last Updated by: Shweta Ellis RN See problem list for complications and, IOL IUGR SM for KW preeclampsia Depression Screen PHQ-2/9 PHQ-2 Over the last 2 weeks, how often have you been bothered by any of the following problems? 1. Little interest or pleasure in doing things: not at all 2. Feeling down, depressed, or hopeless: not at all Total score: 0 Post HPI Routine Follow-Up: Details: KATHLEEN POWELL is a 18 year old who presents for her post visit. Stopped labetalol 2 wk ago due to constipation. Denies headache, vision changes. States FOB has been involved, the had intercourse last week. No condom used. She is unsure if her has other partners. States has been well supported with family, friends Infant Feeding: Bottle Menses resumed: No [place] since delivery: Yes (no condom) Emotional Support: Yes Control Method: POP ROS Card Denies chest pain and Denies dyspnea Resp Denies dyspnea GI Denies bloating and Denies change in bowel habits Denies difficulty voiding Skin/Breast Denies breast mass, Denies breast pain and Denies breast skin changes Exam Const General: cooperative, no acute distress and well developed Nutritional Appearance: average body habitus Orientation: oriented x3 Neck Neck: normal visual inspection Thyroid: thyroid normal Resp Effort Inspection: normal respiratory effort GI Palpation: soft (incision well healed), no masses and nontender General: bladder normal to palpation External Female Exam: normal external appearance and normal appearance of the urethra Urethra: normal appearance of the urethra Speculum Exam - Vagina: normal appearance of the vagina and normal vaginal discharge Speculum Exam - Cervix: normal appearance of the cervix Bimanual Exam- Vagina Uterus: normal bimanual exam, uterine size normal, bladder normal to palpation, uterine shape normal, uterine mobility normal and non-tender Bimanual Exam- Adnexa, other: normal adnexae, no masses, normal and non-tender (more content not included)... Normal [facility] Dressing Room Attendant Office Visit Reporton 12-09-2023 Dressing Room Attendant Office Visit Report [facility] [address], [address] [place] [address] OFFICE VISIT Date of Service: 12/09/23 MR#: [id number] Acct: [id number] Name: KATHLEEN POWELL NEEL Rep #: [id number] : 2005 Provider: Dr. Brianne juarez MD Age/Sex: 18/F Location: [facility] Status: Signed Intake Vital Signs 12/02/23 11:52 12/04/23 15:01 12/09/23 11:49 Height 5 ft 5 in 5 ft 5 in 5 ft 5 in Weight: 185 lb 8 oz 176 lb BMI 30.9 29.2 BP 133/86 H 136/88 H Intake Visit Reasons: 2 WK INCISION CHK Associate Entertainment Editor Required: No Is patient in pain?: No Allergies No Known Allergies Allergy (Verified 12/09/23 11:51) Medications ???Medication ???Instructions ???Recorded ???Confirmed ???Type breast pump #1 ea 10/02/23 12/02/23 Rx naproxen 500 mg tablet 500 mg PO BID PRN PRN Pain #30 tabs 11/28/23 12/09/23 Rx oxycodone-acetaminophen 5 mg-325 1 tab PO Q6H PRN pain 7 days #20 11/28/23 12/09/23 Rx mg tablet (Percocet) tabs labetalol 300 mg tablet 300 mg PO TID 30 days #90 tabs 12/03/23 12/09/23 Rx acetaminophen 500 mg tablet 1,000 mg PO Q6H PRN pain 12/04/23 12/09/23 History (Acetaminophen Pain Relief) PFSH Medical History Decreased movement Pre-eclampsia Gestational HTN Unknown varicella vaccination status Instability of right patellofemoral joint Right knee pain Instability of left patellofemoral joint Left knee pain Social History adopted: No household members: family current occupational status: employed 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 current occupational exposures/hazards: No pets and animals: Yes (Avoid litterbox) pets and animals: cat(s) and dog(s) history of recent travel: No sexually active: Yes Smoking Status: Former smoker Tobacco: How many years used: 6 Electronic Cigarette Use: with nicotine how long ago did patient quit smokin month ago alcohol intake: current alcohol intake frequency: holidays/special occasions only details: not while substance use type: marijuana well-balanced diet: daily or most days caffeine: No eating out: 1-3 times/week during the past year weight has: remained stable what type of physical activity do you participate in: none dimple/amish: None seatbelt use: always do you feel safe at home: Yes additional social history: FOB Chad Scott- not really involved History 1 Elective abortions Hx Para 0 Spontaneous abortions Hx # Term Pregnancies Ectopic pregnancies Hx # Pregnancies Multiple births # of living children Past Pregnancies Del. Date Name GA/Weeks Outcome Route Bth Weight Infant Gen Labor Lgth Anesthesia Del Locatn Provider FOB 11/28/23 [place] 5lb 15.5oz Post HPI 2 WK INCISION CHK: Details: KATHLEEN POWELL is a 18 year old who presents for her post visit. doing much better bps contorllled good mood Menses resumed: No [place] since delivery: No Last Pap:: n/a ROS Const Reports system reviewed and no additional complaints, except as documented GI Denies abdominal pain, Denies cramping, Denies nausea and Denies vomiting Denies pelvic pain, Denies urinary frequency, Denies urinary incontinence, Denies urinary urgency, Denies vaginal discharge, Denies vaginal dryness and Denies vaginal odor Exam Const General: cooperative, healthy appearing, comfortable and no acute distress GI Inspection: normal to inspection Palpation: soft and nontender Other: Incisions: C/D/I Coding Level of Care Code No Charge Diagnoses delivery delivered O82 Severe pre-eclampsia O14.10 Assessment and Plan Assessment and Plan (1) delivery delivered: Status: Acute Comment: iol IUGR SM for KW preeclampsia (2) Severe pre-eclampsia: Status: Acute Comment: left AMA. labetalol , procardia Plan fu at 6 weeks and with PCP 12/09/23 1416 Date Brianne Rocha Signature: Date (if applicable) CC: Normal [facility] AST(SGOT)on 12-04-2023 AST [Catalytic activity/Vol] 27 U/L Normal 15-37 [facility] Comment on above: Performed By: #### L 100.0500 #### [facility] [address] [place], [address] Alanine Aminotransferas (SGP T)on 12-04-2023 ALT [Catalytic activity/Vol] 37 U/L Normal 13-56 [facility] Comment on above: Performed By: #### L 100.0500 #### [facility] [address] [facility] [place], [address] CBC-Complete Blood Cnt No Di ffon 12-04-2023 Erythrocyte distribution width (RBC) [Ratio] 12.7 % Normal 11.6-14.6 [facility] Comment on above: Performed By: #### L 100.0500 #### [facility] [address] [place], [address] Hematocrit (Bld) [Volume fraction] 34.6 % Low 37-47 [facility] Comment on above: Performed By: #### L 100.0500 #### [facility] [address] [place], [address] Hemoglobin (Bld) [Mass/Vol] 11.4 g/dL Low 12.0-15.0 [facility] Comment on above: Performed By: #### L 100.0500 #### [facility] [address] [place], [address] MCH (RBC) [Entitic mass] 28.7 pg Normal 27.0-32.0 [facility] Comment on above: Performed By: #### L 100.0500 #### [facility] [address] [place], [address] MCHC (RBC) [Mass/Vol] 32.9 g/dL Normal 32-36 [facility] Comment on above: Performed By: #### L 100.0500 #### [facility] [address] [place], [address] MCV (RBC) [Entitic vol] 87.2 fL Normal 81-99 [facility] Comment on above: Performed By: #### L 100.0500 #### [facility] [address] [place], [address] Platelet mean volume (Bld) [Entitic vol] 9.4 fL Normal 6.2-12.0 [facility] Comment on above: Performed By: #### L 100.0500 #### [facility] [address] [place], [address] Platelets (Bld) [#/Vol] 343 10*3/uL Normal 150-450 [facility] Comment on above: Performed By: #### L 100.0500 #### [facility] [address] [place], [address] RBC (Bld) [#/Vol] 3.97 10*6/uL Low 4.2-5.4 [facility] Comment on above: Performed By: #### L 100.0500 #### [facility] [address] [place], [address] RDW SD 40.6 fl Normal 35.1-43.9 [facility] Comment on above: Performed By: #### L 100.0500 #### [facility] [address] [place], [address] WBC (Bld) [#/Vol] 13.0 10*3/uL High 4.4-11.0 [facility] Comment on above: Performed By: #### L 100.0500 #### [facility] [address] [place], [address] OB Triage Physician Noteon 1 OB Triage Physician Note [facility] Medical Records Department [address] [place] [address] OB Triage Physician Note 12/04/23 1804 MR#: [id number] Acct: [id number] Name: KATHLEEN POWELL NEEL Rep #: [id number] : 2005 18 From: Brianne Dickey MD PCP: Care Physician,No Primary Status:DEP CLI Y Location: [facility] HPI - General HPI Narrative KATHLEEN POWELL, is a 18 F who presents for elevated bps she delivered a week ago and had elevated bps and headache, presenting today for bp monitoring and labs. Maternal Data Information ANALI Calculator Estimated Delivery Date Method Current WG Current Estimate 12/22/23 Ultrasound #1 38w 0d PFSH PFSH Medical History (Updated 12/03/23 @ 00:01 by Background Daemon) Decreased movement Pre-eclampsia Gestational HTN Unknown varicella vaccination status Instability of right patellofemoral joint Right knee pain Instability of left patellofemoral joint Left knee pain Home Medications ???Medication ???Instructions ???Recorded ???Last Taken ???Type breast pump #1 ea 10/02/23 Unknown Rx naproxen 500 mg tablet 500 mg PO BID PRN PRN Pain #30 tabs 11/28/23 12/04/23 09:00 Rx 500 mg oxycodone-acetaminophen 5 mg-325 1 tab PO Q6H PRN pain 7 days #20 11/28/23 12/03/23 22:30 Rx mg tablet (Percocet) tabs 1 TAB labetalol 300 mg tablet 300 mg PO TID 30 days #90 tabs 12/03/23 12/04/23 09:00 Rx 300 mg acetaminophen 500 mg tablet 1,000 mg PO Q6H PRN pain 12/04/23 12/04/23 09:00 History (Acetaminophen Pain Relief) 1,000 mg Allergy/AdvReac Type Severity Reaction Status Date / Time No Known Allergies Allergy Verified 12/04/23 14:58 Social History adopted: No household members: family current occupational status: employed 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 current occupational exposures/hazards: No pets and animals: Yes (Avoid litterbox) pets and animals: cat(s) and dog(s) history of recent travel: No sexually active: Yes Smoking Status: Former smoker Tobacco: How many years used: 6 Electronic Cigarette Use: with nicotine how long ago did patient quit smokin month ago alcohol intake: current alcohol intake frequency: holidays/special occasions only details: not while substance use type: marijuana well-balanced diet: daily or most days caffeine: No eating out: 1-3 times/week during the past year weight has: remained stable what type of physical activity do you participate in: none idmple/amish: None seatbelt use: always do you feel safe at home: Yes additional social history: BLAKE Chavez- not really involved History 1 Elective abortions Hx Para 0 Spontaneous abortions Hx # Term Pregnancies Ectopic pregnancies Hx # Pregnancies Multiple births # of living children Visit Details Expected Delivery Route/Plan Labor Preferences- CB/BF classes: encouraged labor support person: BLAKE Ackerman and her mother Esha labor intervention preferences: pain management options preferred: epidural cut cord/dad catch: Tyron maybe : yes PP control planned: wants pills only. Discussed LARC and depo and declines discussed possible routes of delivery and associated risks: [] special requests: [] Plans Covid status: [] Flu vaccine: [] Tdap vaccine: 10/01 Rhogam: NA LARC form signed: yes Problem list reviewed and updated with the most current plan of care details and appropriate orders placed. Relevant counseling for the gestational age provided. Continue routine care and follow up unless otherwise noted in visit notes/problem list details OB Flowsheet Initial Weight: Not Recorded Date -???-???-???-???-???-?? ?-???-???-???-???-???-? ??- EGA Weight BP Urine Prot -???-???-???-???-???-?? ?-???-???-???-???-???-? ??- Glucose FHR FuHt Pres Dilation -???-???-???-???-???-?? ?-???-???-???-???-???-? ??- Effaced St Visit Note 05/20/23 -???-???-???-???-???-?? ?-???-???-???-???-???-? ??- 9w 1d 174 lb 2 oz 138/82 -???-???-???-???-???-?? ?-???-???-???-???-???-? ??- 168 -???-???-???-???-???-?? ?-???-???-???-???-???-? ??- KW- CRL cons with dates. NIPT requested 06/18/23 -???-???-???-???-???-?? ?-???-???-???-???-???-? ??- 13w 2d 172 lb 122/78 Negative -???-???-???-???-???-?? ?-???-???-???-???-???-? ??- Negative 175 -???-???-???-???-???-?? ?-???-???-???-???-???-? ??- XIOMARA- susanne i s low risk boy! no complaints today. encouraged to wear a mask at work. 07/14/23 -???-???-???-???-???-?? ?-???-???-???-???-???-? ??- 17w 0d 178 lb 6 oz 120/72 Negative -???-???-???-???-???-?? ?-???-???-???-???-???-? ??- Negative 154 -???-???-???-???-???-?? ?-???-???-???-???-???-? ??- -No VB. Mi ld cramping. States good support system in place. Involved with a yazdanism support g (more content not included)... Normal [facility] Protein+Creatinine Ratio,Uri neon 12-04-2023 PROT:CRE RATIO 373 mg/g CRE High 0-200 [facility] Comment on above: Performed By: #### L 100.0500 #### [facility] [address] [place], [place], [address] Protein (U) [Mass/Vol] 22.7 mg/dL High <11.9 [facility] Comment on above: Performed By: #### L 100.0500 #### [facility] [address] [place], [address] UR CREAT 60.80 mg/dL Normal NO RANGE EST. [facility] Comment on above: Performed By: #### L 100.0500 #### [facility] [address] [place], [address] Serum Creatinine AND GFRon 1 Creatinine [Mass/Vol] 0.76 mg/dL Normal 0.55-1.02 [facility] Comment on above: Result Comment: The validity of the calculated GFR GFRAA in patients over 70 years has not been determined. Clinical correlation is essential. Performed By: #### L 100.0500 #### [facility] [address] [place], [address] ECRCL 126.38 ml/min Normal [facility] Comment on above: Performed By: #### L 100.0500 #### [facility] [address] [place], [address] EST GFR - AA 126 mL/min Normal >60 [facility] Comment on above: Result Comment: Afri can Togolese GFR Calc Performed By: #### L 100.0500 #### [facility] [address] [place], [address] GFR/1.73 sq M.predicted among non-blacks MDRD (S/P/Bld) [Vol rate/Area] 104 mL/min/{1.73_m2} Normal >60 [facility] Comment on above: Result Comment: Non- GFR Calc Performed By: #### L 100.0500 #### [facility] [address] [place], [address] Uric Acidon 12-04-2023 URIC 6.4 mg/dL High 2.6-6.0 [facility] Comment on above: Result Comment: The drugs N-Acetylcysteine and Metamizole may falsely depress this assay. Performed By: #### L 100.0500 #### [facility] [address] [place], [address] Office Visit Reporton 2023 Office Visit Report [facility] [address] [place] [address] OFFICE VISIT Date of Service: 12/02/23 MR#: [id number] Acct: [id number] Patient: KATHLEEN POWELL NEEL Rep #: [id number] : 2005 Provider: CORNELIA aguilar Age/Sex: 18/F Location: [facility] Status: Signed Intake Vital Signs 11/27/23 11:40 12/02/23 11:52 Height 5 ft 5 in 5 ft 5 in Weight: 185 lb 8 oz BMI 30.9 BP 133/86 H Intake Visit Reasons: BP CHECK Chief Complaint: BP check Associate Entertainment Editor Required: No Is patient in pain?: No Allergies No Known Allergies Allergy (Verified 12/02/23 11:54) Medications ???Medication ???Instructions ???Recorded ???Confirmed ???Type PNV 178-FA 180 mcg-om3 35 mg-dha 1 tab PO DAILY 05/16/23 12/02/23 History 25 mg-epa 5 mg-fish oil chew tablet breast pump #1 ea 10/02/23 12/02/23 Rx naproxen 500 mg tablet 500 mg PO BID PRN PRN Pain #30 tabs 11/28/23 12/02/23 Rx oxycodone-acetaminophen 5 mg-325 1 tab PO Q6H PRN pain 7 days #20 11/28/23 12/02/23 Rx mg tablet (Percocet) tabs labetalol 200 mg tablet 200 mg PO TID 30 days #90 tabs 12/01/23 12/02/23 Rx Is last menstrual period known: No Post menopausal: No Patient : No Nurse's Note: Patient was here today for blood pressure check after being instructed by labor and delivery. Her blood pressure was stable today. Denies headaches, vision changes or abdominal pain outside of incision pain from her recent csection. She has checked her blood pressure at home and has taken her medication. Spoke with Dr. Dickey recommends continue with current regimen and follow-up at her incision check. I did advise if anything changes she needs to call us. Assessment and Plan Assessment and Plan (1) Severe pre-eclampsia: Status: Acute Comment: left AMA. labetalol rx sent to pharmacy (2) delivery delivered: Status: Acute Comment: iol IUGR SM for KW preeclampsia 12/02/23 1647 Date Brianne Dickey MD Cosigner Signature: Date (if applicable) CC: Normal [facility] Pathology Specimen OBon PATH. Spec OB SEE PATHOLOGY REPORT Normal [facility] Comment on above: Order Comment: Send Specimen For (Specify): Studies @ [facility] Lab:RoutineTime of Procedure: 1220Date of Procedure: 11/28/23Reason specimen being sent to pathology (Hx/complications):gonzalo orderType of specimen: PlacentaType of procedure performed: Primary Section Result Comment: Spec imen submitted to Anatomical Pathology Department for testing. Performed By: #### L 3400.8000 #### [facility] [address] [facility] [place], [address] CBC-Complete Blood Cnt No Di ffon 11-29-2023 Erythrocyte distribution width (RBC) [Ratio] 13.1 % Normal 11.6-14.6 [facility] Comment on above: Order Comment: Comme nts: Day #1 Reason for Laboratory Test Performed By: #### L 100.0500 #### [facility] [address] [place], [address] Hematocrit (Bld) [Volume fraction] 34.2 % Low 37-47 [facility] Comment on above: Order Comment: Comme nts: Day #1 Reason for Laboratory Test Performed By: #### L 100.0500 #### [facility] [address] [place], [address] Hemoglobin (Bld) [Mass/Vol] 11.3 g/dL Low 12.0-15.0 [facility] Comment on above: Order Comment: Comme nts: Day #1 Reason for Laboratory Test Performed By: #### L 100.0500 #### [facility] [address] [place], [address] MCH (RBC) [Entitic mass] 29.1 pg Normal 27.0-32.0 [facility] Comment on above: Order Comment: Comme nts: Day #1 Reason for Laboratory Test Performed By: #### L 100.0500 #### [facility] [address] [place], [address] MCHC (RBC) [Mass/Vol] 33.0 g/dL Normal 32-36 [facility] Comment on above: Order Comment: Comme nts: Day #1 Reason for Laboratory Test Performed By: #### L 100.0500 #### [facility] [address] [place], [address] MCV (RBC) [Entitic vol] 88.1 fL Normal 81-99 [facility] Comment on above: Order Comment: Comme nts: Day #1 Reason for Laboratory Test Performed By: #### L 100.0500 #### [facility] [address] [place], [address] Platelet mean volume (Bld) [Entitic vol] 10.7 fL Normal 6.2-12.0 [facility] Comment on above: Order Comment: Comme nts: Day #1 Reason for Laboratory Test Performed By: #### L 100.0500 #### [facility] [address] [place], [address] Platelets (Bld) [#/Vol] 198 10*3/uL Normal 150-450 [facility] Comment on above: Order Comment: Comme nts: Day #1 Reason for Laboratory Test Performed By: #### L 100.0500 #### [facility] [address] [place], [address] RBC (Bld) [#/Vol] 3.88 10*6/uL Low 4.2-5.4 [facility] Comment on above: Order Comment: Comme nts: Day #1 Reason for Laboratory Test Performed By: #### L 100.0500 #### [facility] [address] [place], [address] RDW SD 42.0 fl Normal 35.1-43.9 [facility] Comment on above: Order Comment: Comme nts: Day #1 Reason for Laboratory Test Performed By: #### L 100.0500 #### [facility] [address] [place], [address] WBC (Bld) [#/Vol] 12.0 10*3/uL High 4.4-11.0 [facility] Comment on above: Order Comment: Comme nts: Day #1 Reason for Laboratory Test Performed By: #### L 100.0500 #### [facility] [address] [place], [address] Discharge Instructionon Discharge Instruction [facility] Medical Records Department [address] [place] [address] Instructions for Home/Discharge Instructions 11/28/23 1521 MR#: [id number] Acct: [id number] Name: CLARA POWELLIGH NEEL Rep #: [id number] : 2005 18 From: Brianne Dickey MD PCP: Care Physician,No Primary Status:ADM IN Discharge Instructions Diet Discharge Diet: No restrictions Activity Discharge Activity: May Not Drive (for 2 weeks or while taking narcotic pain medications.), May Shower and May Take a Tub Bath (in 7 days) May shower in (days): 0 May resume sexual activity in: 4-6 weeks Weight Bearing Status: Full weight bearing Lifting Restrictions: 20 pounds Dressing / Incision Call your doctor if your incision/area has: Continuous Slow Oozing, Sudden Increased Bleeding, Increased Pain/ Swelling, Increased Redness and Foul Smelling Discharge Call your doctor if you observe: Fever of 101 or Higher and Using more than 1 pad per hour (for 2 hours) Suture Line Care: Avoid Pulling/Pushing and Avoid Pinching/Bending Cleanse incision/area with: Soap Water and Keep Dressing Clean Dry Follow Up Care Please Follow Up With: Brianne Dickey MD When: Call [phone] to make an appointment for an incision check in 1-2 weeks. Test Results: Test results from this visit will be discussed in further detail at your follow-up appointment, if applicable. Discharge Plan Admission Admit Date/Time: 11/27/23 13:26 Attending Provider: Tiffanie Barrios Primary Care Provider: Care Physician,No Primary Discharge Orders/Prescriptions Prescriptions: New oxycodone-acetaminophen [Percocet] 5-325 mg tablet 1 tab PO Q6H PRN (Reason: pain) 7 Days Qty: 20 0RF naproxen 500 mg tablet 500 mg PO BID PRN PRN (Reason: Pain) Qty: 30 1RF No Action PNV no.019-EY-to3-dha-epa-f luisa 180 mcg-35 mg- 25 mg-5 mg tablet,chewable 1 tab PO DAILY (DME) breast pump Device See Rx Instructions .ROUTE .MEDSUPPLY Qty: 1 0RF Rx Instructions: As directed Referrals / Follow Up: Care Physician,No Primary [Primary Care Provider] - Disposition Disposition (needs filled in before D/C Order can be placed): Home, Self Care 11/28/23 1523 Brianne Dickey MD CC: No Primary Care Physician Signed Normal [facility] Operative Reporton 4 Operative Report [facility] Medical Records Department [address] [place] [address] Operative Report 11/28/23 1346 MR#: [id number] Acct: [id number] Name: KATHLEEN POWELL NEEL Rep #: [id number] : 2005 18 From: Brianne Dickey MD PCP: Care Physician,No Primary Status:ADM IN Location: [place] [address] Assessment Plan (1) Severe pre-eclampsia: (2) Gestational hypertension: QUALIFIERS: Trimester: third trimester Qualified Code(s): O13.3 - Gestational [-induced] hypertension without significant proteinuria, third trimester COMMENT: WP for r/o PEC. negative work up today. plan weekly PIH labs, twice weekly nsts, growth scan at 36 weeks. 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 Patient was prepped and draped in the normal sterile fashion. Pfannenstiel skin incision was made with the scalpel and carried through to the underlying layer of fascia with the scalpel. Fascia was nicked in the midline and the incision extended laterally. The rectus bellies were dissected off superiorly and inferiorly with out complication both sharply and bluntly. The peritoneum was entered digitally. The incision was stretched and a low transverse uterine incision was made with the scalpel. The infant's head was delivered atraumatically followed by the anterior and posterior shoulders without complication the rest of the infant delivered. The cord was clamped and cut and the infant was handed off to awaiting nurse. The placenta was delivered spontaneously immediately following and was noted to be intact and have a three-vessel cord. The uterus was exteriorized cleared of all clots and debris, and the incision was closed in a single layer closure using #1 Monocryl. additional figure of eight suture sna hemoblast used for hemostasis. The ovaries and fallopian tubes were noted to be within normal limits. The uterus was returned to the maternal abdomen and gutters were cleared of all clots and debris. The peritoneum was closed with 3-0 Monocryl in a running fashion. Gloves were changed prior to fascial closure. Fascia was closed with 0 PDS in a running fashion. Subcutaneous tissue was copiously irrigated and the skin was closed with 3-0 Monocryl in a subcuticular fashion. Mepilex dressing was applied without complication. Patient was taken to recovery in stable condition. It was discussed with the patient that based on the clinical information obtained during this encounter, combined with her history, at this time I would recommend vaginal or cesareans for future deliveries if further pregnancies are desired. Placental Delivery Description: Spontaneous Placenta Disposition: [facility] Cord Vessel Description: 3 Vessels Delayed Cord Clamping: Yes Complications Risks of Surgery Discussed w/Patient: Bleeding, Infection, Need for Future C-Sections and Injury to surrounding structure(s) including bowel and bladder Complications: none Admit VTE Documentation VTE Present on Admission: No VTE Mechan Device Prophylaxis: SCD's Procedures Urinary/Genital 52xxx-59xxx: 90671 delivery+ Care([facility]) 11/28/23 1521 Cosigner Signature (if applicable): CC: Dr. Tiffanie Barrios DO; Dr. Brianne Dickey MD; No Primary Care Physician Signed Normal [facility] Rule out Beta Strep (Grp. B) on 11-28-2023 KRYSTAL Group B Beta Streptococcus is not isolated. Normal [facility] Comment on above: Performed By: #### M 100.3400 ####[facility] [address] [place], [place], [id number] Surgery Specimen Level Von 1 Surgery Specimen Level V Patient Age/Sex Location Account Attending Physician SHERRYCLARAKATHLEEN ANN [id number] Dr. Tiffanie Barrios, Yasmine Specimen: [id number] Received: 12/01/23 Status: NERY Melendrez Num: [id number] Spec Type: PLACENTA Subm Dr: Dr. Tiffanie Barrios DO HEAD OPERATION: Primary section PRE-OP DIAGNOSIS: Gonzalo fong TISSUE SUBMITTED: Placenta MICROSCOPIC DIAGNOSIS Brink placenta (407 gm): Umbilical cord - Trivascular with no evidence of inflammation. Placental membranes - No pathologic change. Placental disc -Octaviano-Felipe change, increased intraparenchymal fibrin plaques, intravascular congestion and intervascular congestion. AM: 12/02/2023 MICROSCOPIC DESCRIPTION Slides are reviewed. GROSS DESCRIPTION SPECIMEN: PLACENTA / CLINICAL INFORMATION: A. Weight: 2.545 kg B. Gestational Age:36 weeks C. Sex: Male PLACENTAL WEIGHT (POST FIXATION):407 gm PLACENTAL DIMENSIONS: 16.0 x 12.0 x 3.0cm PLACENTAL SHAPE: Usual ovoid a succenturiate lobe is noted measuring 5.5 x 5.0 x 0.6cm PLACENTAL WEIGHT FOR GESTATIONAL AGE: Within 10-99th percentile MEMBRANES - Present A. Insertion: Marginal B. Site of rupture from edge: at the margin of placental disc C. Color of membrane: Linares-rg D. Abnormalities: None UMBILICAL CORD - Present A. Color: Linares-rg B. Insertion: Paracentral C. Length: 34.0cm D. Diameter: 1.0 to 1.5cm E. Number of vessels: Three F. Abnormalities: None Patient Age/Sex Location Account Attending Physician KATHLEEN POWELL [id number] Yasmine Browne PLACENTAL DISC - Present A. Color of surface: Linares-rg B. surface abnormalities: None C. Maternal cotyledons: Intact with minimal tears D. Attached retro placental clot: No clot E. Cut surface: Dark red and spongy F. Lesions: None G. Separate clot: Absent SECTIONS SUBMITTED: Dr. Pfeiffer (6 cassettes) - remove if Dr. Harmon 1. Membrane roll 2. Cord, maternal end, succenturiate lobe 3. Cord, end, succenturiate lobe 4. Placental disc, and maternal surfaces 5. Placental disc, and maternal surfaces 6. Placental disc, and maternal surfaces SJ.mr 12/01/2023 TC:5 CPT: 78566 Patient Age/Sex Location Account Attending Physician KATHLEEN POWELL WP [id number] Yasmine Browne Signed (signature on file) Dr. Daniel Harmon DO 12/02/23 1203 Normal [facility] Comment on above: Performed By: #### P SUV ####[facility] [address] [place], [address] CBC W/Diff, Automatedon 10-0 -2023 Absolute Lymph 1.72 X10 3/uL Normal 0.83-4.51 [facility] Comment on above: Performed By: #### L 3400.8000 #### [facility] [address] [place], [address] Absolute Neut 10.0 X10 3/uL High 2.0-7.7 [facility] Comment on above: Performed By: #### L 3400.8000 #### [facility] [address] [place], [address] Basophils/100 WBC (Bld) 0.7 % Normal 0-1 [facility] Comment on above: Performed By: #### L 3400.8000 #### [facility] [address] [place], [address] Eosinophils/100 WBC (Bld) 0.5 % Normal 0-5 [facility] Comment on above: Performed By: #### L 3400.8000 #### [facility] [address] [place], [address] Erythrocyte distribution width (RBC) [Ratio] 13.1 % Normal 11.6-14.6 [facility] Comment on above: Performed By: #### L 3400.8000 #### [facility] [address] [place], [address] Hematocrit (Bld) [Volume fraction] 41.0 % Normal 37-47 [facility] Comment on above: Performed By: #### L 3400.8000 #### [facility] [address] [place], [address] Hemoglobin (Bld) [Mass/Vol] 13.9 g/dL Normal 12.0-15.0 [facility] Comment on above: Performed By: #### L 3400.8000 #### [facility] [address] [place], [address] IG% 1.100 High 0.0-0.9 [facility] Comment on above: Result Comment: IG% - Immature Granulocytes (promyelocytes, myelocytes and metamyelocytes) > 1% indicates that a LEFT SHIFT is Present. Performed By: #### L 3400.8000 #### [facility] [address] [place], [address] Lymphocytes/100 WBC (Bld) 13.0 % Low 19-41 [facility] Comment on above: Performed By: #### L 3400.8000 #### [facility] [address] [place], [address] MCH (RBC) [Entitic mass] 29.0 pg Normal 27.0-32.0 [facility] Comment on above: Performed By: #### L 3400.8000 #### [facility] [address] [place], [address] MCHC (RBC) [Mass/Vol] 33.9 g/dL Normal 32-36 [facility] Comment on above: Performed By: #### L 3400.8000 #### [facility] [address] [place], [address] MCV (RBC) [Entitic vol] 85.6 fL Normal 81-99 [facility] Comment on above: Performed By: #### L 3400.8000 #### [facility] [address] [place], [address] Monocytes/100 WBC (Bld) 8.9 % Normal 0-10 [facility] Comment on above: Performed By: #### L 3400.8000 #### [facility] [address] [place], [address] Neutrophils/100 WBC (Bld) 75.8 % High 47-70 [facility] Comment on above: Performed By: #### L 3400.8000 #### [facility] [address] [place], [address] Nucleated RBC (Bld) [#/Vol] 0 10*3/uL Normal 0-5 [facility] Comment on above: Performed By: #### L 3400.8000 #### [facility] [address] [place] [place], [address] Platelet mean volume (Bld) [Entitic vol] 10.7 fL Normal 6.2-12.0 [facility] Comment on above: Performed By: #### L 3400.8000 #### [facility] [address] [place], [address] Platelets (Bld) [#/Vol] 237 10*3/uL Normal 150-450 [facility] Comment on above: Performed By: #### L 3400.8000 #### [facility] [address] [place], [address] RBC (Bld) [#/Vol] 4.79 10*6/uL Normal 4.2-5.4 [facility] Comment on above: Performed By: #### L 3400.8000 #### [facility] [address] [place], [address] RDW SD 40.1 fl Normal 35.1-43.9 [facility] Comment on above: Performed By: #### L 3400.8000 #### [facility] [address] [place], [address] WBC (Bld) [#/Vol] 13.2 10*3/uL High 4.4-11.0 [facility] Comment on above: Performed By: #### L 3400.8000 #### [facility] [address] [place], [address] Group B Strep DNA By PCRon 1 GBS DNA ASSAY Positive Abnormal Negative [facility] Comment on above: Result Comment: Peni cillin is the recommended antibiotic for the treatment of Group B Streptococcal disease. In case of penicillin allergy, susceptibility testing for Clindamycin and Erythromycin is suggested by request. RESULTS CALLED TO [facility] 11/27/23 Shruti3 Maame Pickens. REPORT READ BACK BY [facility]. Performed By: #### L 8200.0000 #### [facility] [address] [place], [id number] H AND P Exam - OB/GYNon 10-0 H&P Exam - FIELD MARKETING SPECIALIST [facility] Medical Records Department [address] [place] [address] H P Exam - FIELD MARKETING SPECIALIST 11/27/23 1307 MR#: [id number] Acct: [id number] Name: KATHLEEN POWELL NEEL Rep #: [id number] : 2005 18 From: Tiffanie Barrios DO PCP: Care Physician,No Primary Status:REG CLI Location: [place] [address] HPI - General HPI Narrative KATHLEEN POWELL, is a 18 y/o @ 36 weeks 3 days who presents to [facility] for a non-reactive NST. She has known mild pre-eclampsia and is planned to be induced at 37 weeks. However, upon further review of her chart, the growth from 2 days ago shows that the abdominal circumference s in the 5th% and the NAZARIO is borderline low. This now puts her in the severe pre-eclampsia range and the plan is for IOL. Maternal Data Information ANALI Calculator Estimated Delivery Date Method Current WG Current Estimate 12/22/23 Ultrasound #1 36w 3d PFSH PFS Medical History Unknown varicella vaccination status Instability of right patellofemoral joint Right knee pain Instability of left patellofemoral joint Left knee pain Home Medications ???Medication ???Instructions ???Recorded ???Last Taken ???Type PNV 178-FA 180 mcg-om3 35 mg-dha 1 tab PO DAILY 05/16/23 Unknown History 25 mg-epa 5 mg-fish oil chew tablet breast pump #1 ea 10/02/23 Unknown Rx Allergy/AdvReac Type Severity Reaction Status Date / Time No Known Allergies Allergy Verified 11/27/23 11:39 Social History adopted: No household members: family current occupational status: employed 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 current occupational exposures/hazards: No pets and animals: Yes (Avoid litterbox) pets and animals: cat(s) and dog(s) history of recent travel: No sexually active: Yes Smoking Status: Former smoker Tobacco: How many years used: 6 Electronic Cigarette Use: with nicotine how long ago did patient quit smokin month ago alcohol intake: current alcohol intake frequency: holidays/special occasions only details: not while substance use type: marijuana well-balanced diet: daily or most days caffeine: No eating out: 1-3 times/week during the past year weight has: remained stable what type of physical activity do you participate in: none dimple/amish: None seatbelt use: always do you feel safe at home: Yes additional social history: BLAKE Cadenalan- not really involved History 1 Elective abortions Hx Para 0 Spontaneous abortions Hx # Term Pregnancies Ectopic pregnancies Hx # Pregnancies Multiple births # of living children Visit Details Expected Delivery Route/Plan Labor Preferences- CB/BF classes: encouraged labor support person: BLAKE Ackerman and her mother Esha labor intervention preferences: pain management options preferred: epidural cut cord/dad catch: Tyron maybe : yes PP control planned: wants pills only. Discussed LARC and depo and declines discussed possible routes of delivery and associated risks: [] special requests: [] Plans Covid status: [] Flu vaccine: [] Tdap vaccine: 10/01 Rhogam: NA LARC form signed: yes Problem list reviewed and updated with the most current plan of care details and appropriate orders placed. Relevant counseling for the gestational age provided. Continue routine care and follow up unless otherwise noted in visit notes/problem list details OB Flowsheet Initial Weight: Not Recorded Date -???-???-???-???-???-?? ?-???-???-???-???-???-? ??- EGA Weight BP Urine Prot -???-???-???-???-???-?? ?-???-???-???-???-???-? ??- Glucose FHR FuHt Pres Dilation -???-???-???-???-???-?? ?-???-???-???-???-???-? ??- Effaced St Visit Note 05/20/23 -???-???-???-???-???-?? ?-???-???-???-???-???-? ??- 9w 1d 174 lb 2 oz 138/82 -???-???-???-???-???-?? ?-???-???-???-???-???-? ??- 168 -???-???-???-???-???-?? ?-???-???-???-???-???-? ??- KW- CRL cons with dates. NIPT requested 06/18/23 -???-???-???-???-???-?? ?-???-???-???-???-???-? ??- 13w 2d 172 lb 122/78 Negative -???-???-???-???-???-?? ?-???-???-???-???-???-? ??- Negative 175 -???-???-???-???-???-?? ?-???-???-???-???-???-? ??- XIOMARA- susanne i s low risk boy! no complaints today. encouraged to wear a mask at work. 07/14/23 -???-???-???-???-???-?? ?-???-???-???-???-???-? ??- 17w 0d 178 lb 6 oz 120/72 Negative -???-???-???-???-???-?? ?-???-???-???-???-???-? ??- Negative 154 -???-???-???-???-???-?? ?-???-???-???-???-???-? ??- -No VB. Mi ld cramping. States good support system in place. Involved with a yazdanism support group. Also at [facility]. Generalized itching sukhi thighs, arms. No rash. call if worsens. Try claritan. No pain. 08/15/23 -???-???-???-???-???-?? (more content not included)... Normal [facility] L509.8000on 11-27-2023 Syphilis Abs Non-Reactive Normal [facility] Comment on above: Performed By: #### L 509.8000 #### [facility] [address] [place], [address] Dressing Room Attendant Office Visit Reporton 11-27-2023 Dressing Room Attendant Office Visit Report [facility] [address], [address] [place] [address] OFFICE VISIT Date of Service: 11/27/23 MR#: [id number] Acct: [id number] Name: KATHLEEN POWELL NEEL Rep #: [id number] : 2005 Provider: ANABELLE Oglesby ams Age/Sex: 18/F Location: [facility] Status: Signed Intake Vital Signs 10/02/23 09:47 10/29/23 08:35 11/25/23 15:25 11/27/23 10:36 11/27/23 10:38 Height 5 ft 5 in 5 ft 5 in 5 ft 5 in 5 ft 5 in 5 ft 5 in Weight: 189 lb BMI 31.4 BP 137/93 H Intake Visit Reasons: 36 wk ob/NST Associate Entertainment Editor Required: No Is patient in pain?: No Allergies No Known Allergies Allergy (Verified 11/27/23 10:37) Medications ???Medication ???Instructions ???Recorded ???Confirmed ???Type PNV 178-FA 180 mcg-om3 35 mg-dha 1 tab PO DAILY 05/16/23 11/27/23 History 25 mg-epa 5 mg-fish oil chew tablet breast pump #1 ea 10/02/23 11/27/23 Rx Last Menstrual Period: 02/12/23 Zika: Zika virus screening: Negative : No Have you fallen in the past year?: No PFSH PFSH Medical History Unknown varicella vaccination status Instability of right patellofemoral joint Right knee pain Instability of left patellofemoral joint Left knee pain Social History adopted: No household members: family current occupational status: employed 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 current occupational exposures/hazards: No pets and animals: Yes (Avoid litterbox) pets and animals: cat(s) and dog(s) history of recent travel: No sexually active: Yes Smoking Status: Former smoker Tobacco: How many years used: 6 Electronic Cigarette Use: with nicotine how long ago did patient quit smokin month ago alcohol intake: current alcohol intake frequency: holidays/special occasions only details: not while substance use type: marijuana well-balanced diet: daily or most days caffeine: No eating out: 1-3 times/week during the past year weight has: remained stable what type of physical activity do you participate in: none dimple/amish: None seatbelt use: always do you feel safe at home: Yes additional social history: BLAKE Chavez- not really involved History 1 Elective abortions Hx Para 0 Spontaneous abortions Hx # Term Pregnancies Ectopic pregnancies Hx # Pregnancies Multiple births # of living children HPI 36 wk ob/NST Details: KAHTLEEN POWELL is a 18 year old who presents for routine OB visit. OB Visit ANALI Calculator Estimated Delivery Date Method Current WG Current Estimate 12/22/23 Ultrasound #1 36w 3d Expected Delivery Route/Plan Labor Preferences- CB/BF classes: encouraged labor support person: BLAKE Ackerman and her mother Esha labor intervention preferences: pain management options preferred: epidural cut cord/dad catch: Tyron maybe : yes PP control planned: wants pills only. Discussed LARC and depo and declines discussed possible routes of delivery and associated risks: [] special requests: [] Specific Issue/Plans Covid status: [] Flu vaccine: [] Tdap vaccine: 10/01 Rhogam: NA LARC form signed: yes Problem list reviewed and updated with the most current plan of care details and appropriate orders placed. Relevant counseling for the gestational age provided. Continue routine care and follow up unless otherwise noted in visit notes/problem list details Initial Weight: Not Recorded Date -???-???-???-???-???-?? ?-???-???-???-???-???-? ??- EGA Weight BP Urine Prot -???-???-???-???-???-?? ?-???-???-???-???-???-? ??- Glucose FHR FuHt Pres Dilation -???-???-???-???-???-?? ?-???-???-???-???-???-? ??- Effaced St Visit Note 05/20/23 -???-???-???-???-???-?? ?-???-???-???-???-???-? ??- 9w 1d 174 lb 2 oz 138/82 -???-???-???-???-???-?? ?-???-???-???-???-???-? ??- 168 -???-???-???-???-???-?? ?-???-???-???-???-???-? ??- KW- CRL cons with dates. NIPT requested 06/18/23 -???-???-???-???-???-?? ?-???-???-???-???-???-? ??- 13w 2d 172 lb 122/78 Negative -???-???-???-???-???-?? ?-???-???-???-???-???-? ??- Negative 175 -???-???-???-???-???-?? ?-???-???-???-???-???-? ??- XIOMARA- susanne i s low risk boy! no complaints today. encouraged to wear a mask at work. 07/14/23 -???-???-???-???-???-?? ?-???-???-???-???-???-? ??- 17w 0d 178 lb 6 oz 120/72 Negative -???-???-???-???-???-?? ?-???-???-???-???-???-? ??- Negative 154 -???-???-???-???-???-?? ?-???-???-???-???-???-? ??- -No VB. Mi ld cramping. States good support system in place. Involved with a yazdanism support group. Also at [facility]. Generalized itching sukhi thighs, arms. No rash. call if worsens. Try claritan. No pain. 08/15/23 -? (more content not included)... Normal [facility] Protein+Creatinine Ratio,Uri neon 11-27-2023 PROT:CRE RATIO 310 mg/g CRE High 0-200 [facility] Comment on above: Performed By: #### L 501.0900 #### [facility] [address] [place], [address] Protein (U) [Mass/Vol] 41.6 mg/dL High <11.9 [facility] Comment on above: Performed By: #### L 501.0900 #### [facility] [address] [place], [address] UR CREAT 134.00 mg/dL Normal NO RANGE EST. [facility] Comment on above: Performed By: #### L 501.0900 #### [facility] [address] [place], [address] Type AND Screenon 11-27-2023 Ab SCREEN GEL Negative Normal [facility] Comment on above: Order Comment: Labor Performed By: #### L 3400.8000 #### [facility] [address] [place], [address] Ur Drg Scn w/Rflx AMPH Confi rmon 11-27-2023 Amphetamines Ql (U) Negative Normal <1000 ng/mL [facility] Comment on above: Performed By: #### L 3400.8000 #### [facility] [address] [place], [address] BARBITIURATES Negative Normal < 200 ng/mL [facility] Comment on above: Performed By: #### L 3400.8000 #### [facility] [address] [place], [address] BENZODIAZIPINE Negative Normal < 200 ng/mL [facility] Comment on above: Performed By: #### L 3400.8000 #### [facility] [address] [place], [address] Cocaine Ql (U) Negative Normal < 300 ng/mL [facility] Comment on above: Performed By: #### L 3400.8000 #### [facility] [address] [place], [address] ECSTACY Negative Normal < 500 ng/mL [facility] Comment on above: Performed By: #### L 3400.8000 #### [facility] [address] [place], [address] Methadone Ql (U) Negative Normal < 300 ng/mL [facility] Comment on above: Performed By: #### L 3400.8000 #### [facility] [address] [place], [address] Opiates Ql (U) Negative Normal < 300 ng/mL [facility] Comment on above: Performed By: #### L 3400.8000 #### [facility] [address] [place], [address] PCP Negative Normal < 25 ng/mL [facility] Comment on above: Performed By: #### L 3400.8000 #### [facility] [address] [place], [address] THC Negative Normal < 50 ng/mL [facility] Comment on above: Performed By: #### L 3400.8000 #### [facility] [address] [place], [address] VISTA UDS PH 6 Normal [facility] Comment on above: Performed By: #### L 3400.8000 #### [facility] [address] [place], [address] CBC W/Diff, Automatedon 10-0 -2023 Absolute Lymph 1.46 X10 3/uL Normal 0.83-4.51 [facility] Comment on above: Performed By: #### L 500.4050, L100.0100 #### [facility] [address] [place], [address] Absolute Neut 9.6 X10 3/uL High 2.0-7.7 [facility] Comment on above: Performed By: #### L 500.4050, L100.0100 #### [facility] [address] [place], [address] Basophils/100 WBC (Bld) 0.6 % Normal 0-1 [facility] Comment on above: Performed By: #### L 500.4050, L100.0100 #### [facility] [address] [place], [address] Eosinophils/100 WBC (Bld) 0.7 % Normal 0-5 [facility] Comment on above: Performed By: #### L 500.4050, L100.0100 #### [facility] [address] [place], [address] Erythrocyte distribution width (RBC) [Ratio] 13.1 % Normal 11.6-14.6 [facility] Comment on above: Performed By: #### L 500.4050, L100.0100 #### [facility] [address] [place], [address] Hematocrit (Bld) [Volume fraction] 41.3 % Normal 37-47 [facility] Comment on above: Performed By: #### L 500.4050, L100.0100 #### [facility] [address] [place], [address] Hemoglobin (Bld) [Mass/Vol] 14.1 g/dL Normal 12.0-15.0 [facility] Comment on above: Performed By: #### L 500.4050, L100.0100 #### [facility] [address] [place] [place], [address] IG% 1.300 High 0.0-0.9 [facility] Comment on above: Result Comment: IG% - Immature Granulocytes (promyelocytes, myelocytes and metamyelocytes) > 1% indicates that a LEFT SHIFT is Present. Performed By: #### L 500.4050, L100.0100 #### [facility] [address] [place], [address] Lymphocytes/100 WBC (Bld) 11.5 % Low 19-41 [facility] Comment on above: Performed By: #### L 500.4050, L100.0100 #### [facility] [address] [place], [address] MCH (RBC) [Entitic mass] 29.1 pg Normal 27.0-32.0 [facility] Comment on above: Performed By: #### L 500.4050, L100.0100 #### [facility] [address] [place], [address] MCHC (RBC) [Mass/Vol] 34.1 g/dL Normal 32-36 [facility] Comment on above: Performed By: #### L 500.4050, L100.0100 #### [facility] [address] [place], [address] MCV (RBC) [Entitic vol] 85.3 fL Normal 81-99 [facility] Comment on above: Performed By: #### L 500.4050, L100.0100 #### [facility] [address] [place] [place], [address] Monocytes/100 WBC (Bld) 10.5 % High 0-10 [facility] Comment on above: Performed By: #### L 500.4050, L100.0100 #### [facility] [address] [place], [address] Neutrophils/100 WBC (Bld) 75.4 % High 47-70 [facility] Comment on above: Performed By: #### L 500.4050, L100.0100 #### [facility] [address] [place], [address] Nucleated RBC (Bld) [#/Vol] 0 10*3/uL Normal 0-5 [facility] Comment on above: Performed By: #### L 500.4050, L100.0100 #### [facility] [address] [place], [address] Platelet mean volume (Bld) [Entitic vol] 10.8 fL Normal 6.2-12.0 [facility] Comment on above: Performed By: #### L 500.4050, L100.0100 #### [facility] [address] [place], [address] Platelets (Bld) [#/Vol] 237 10*3/uL Normal 150-450 [facility] Comment on above: Performed By: #### L 500.4050, L100.0100 #### [facility] [address] [place], [address] RBC (Bld) [#/Vol] 4.84 10*6/uL Normal 4.2-5.4 [facility] Comment on above: Performed By: #### L 500.4050, L100.0100 #### [facility] [address] [place], [address] RDW SD 39.8 fl Normal 35.1-43.9 [facility] Comment on above: Performed By: #### L 500.4050, L100.0100 #### [facility] [address] [place], [address] WBC (Bld) [#/Vol] 12.7 10*3/uL High 4.4-11.0 [facility] Comment on above: Performed By: #### L 500.4050, L100.0100 #### [facility] [address] [place], [address] Comprehensive Metabolic Prof ilon 11-25-2023 Albumin [Mass/Vol] 3.0 g/dL Low 3.2-5.0 [facility] Comment on above: Performed By: #### L 500.4050, L100.0100 #### [facility] [address] [place], [address] Albumin/Globulin [Mass ratio] 0.7 {ratio} Low 0.9-2.4 [facility] Comment on above: Performed By: #### L 500.4050, L100.0100 #### [facility] [address] [place], [address] ALK P 217 U/L High 45-117 [facility] Comment on above: Performed By: #### L 500.4050, L100.0100 #### [facility] [address] [place], [address] ALT [Catalytic activity/Vol] 17 U/L Normal 13-56 [facility] Comment on above: Performed By: #### L 500.4050, L100.0100 #### [facility] [address] [place], [address] AST [Catalytic activity/Vol] 10 U/L Low 15-37 [facility] Comment on above: Performed By: #### L 500.4050, L100.0100 #### [facility] [address] [place], [address] Bilirubin [Mass/Vol] 0.80 mg/dL Normal 0.20-1.00 [facility] Comment on above: Result Comment: For patients on eltrombopag therapy, use of Dimension [place] TBIL is not recommended. Performed By: #### L 500.4050, L100.0100 #### [facility] [address] [place], [address] BUN/CRE 14.1 RATIO Normal 10-20 [facility] Comment on above: Performed By: #### L 500.4050, L100.0100 #### [facility] [address] [place], [address] CA,Total 9.3 mg/dL Normal 8.5-10.1 [facility] Comment on above: Performed By: #### L 500.4050, L100.0100 #### [facility] [address] [place], [address] Chloride [Moles/Vol] 106 mmol/L Normal 98-107 [facility] Comment on above: Performed By: #### L 500.4050, L100.0100 #### [facility] [address] [place], [address] CO2 [Moles/Vol] 21.0 mmol/L Normal 21.0-32.0 [facility] Comment on above: Performed By: #### L 500.4050, L100.0100 #### [facility] [address] [place], [address] Creatinine [Mass/Vol] 0.57 mg/dL Normal 0.55-1.02 [facility] Comment on above: Result Comment: The validity of the calculated GFR GFRAA in patients over 70 years has not been determined. Clinical correlation is essential. Performed By: #### L 500.4050, L100.0100 #### [facility] [address] [place], [address] EST GFR - AA 176 mL/min Normal >60 [facility] Comment on above: Result Comment: Afri can Togolese GFR Calc Performed By: #### L 500.4050, L100.0100 #### [facility] [address] [place], [address] GAP 9 Normal 5-15 [facility] Comment on above: Performed By: #### L 500.4050, L100.0100 #### [facility] [address] [place], [address] GFR/1.73 sq M.predicted among non-blacks MDRD (S/P/Bld) [Vol rate/Area] 146 mL/min/{1.73_m2} Normal >60 [facility] Comment on above: Result Comment: Non- GFR Calc Performed By: #### L 500.4050, L100.0100 #### [facility] [address] [place], [address] Globulin (S) [Mass/Vol] 4.2 g/dL Normal 2.2-4.2 [facility] Comment on above: Performed By: #### L 500.4050, L100.0100 #### [facility] [address] [place], [address] Glucose [Mass/Vol] 90 mg/dL Normal 74-106 [facility] Comment on above: Performed By: #### L 500.4050, L100.0100 #### [facility] [address] [place], [address] Potassium [Moles/Vol] 3.8 mmol/L Normal 3.5-5.1 [facility] Comment on above: Performed By: #### L 500.4050, L100.0100 #### [facility] [address] [place], [address] Sodium [Moles/Vol] 136 mmol/L Normal 136-145 [facility] Comment on above: Performed By: #### L 500.4050, L100.0100 #### [facility] [address] [place], [address] T PROT 7.2 g/dL Normal 6.4-8.2 [facility] Comment on above: Performed By: #### L 500.4050, L100.0100 #### [facility] [address] [place], [address] Urea nitrogen [Mass/Vol] 8 mg/dL Normal 7-18 [facility] Comment on above: Performed By: #### L 500.4050, L100.0100 #### [facility] [address] [place], [address] OB Limited With Biometricson 11-25-2023 OB Limited With Biometrics [facility] [address] [address] OB Limited With Biometrics MR#: [id number] Acct: [id number] Name: KATHLEEN POWELL NEEL Rep #: [id number] : 2005 F 18 From: Jean Marie Hebert MD PCP: Care Physician,No Primary Status: REG CLI Study: OB Limited With Biometrics Date of Exam: 11/24 Exam# [id number] Ordering Dr: [place] [id number] STUDY: Ultrasound OB limited 1 or more fetus REASON FOR EXAM: Female, 18 years old GROWTH LMP: 03/17/2023 correlating with 36 weeks 1 day gestation and estimated delivery date 12/22/2023 PRIOR ULTRASOUND: April 23, 2023. TECHNIQUE: Transabdominal OB ultrasound with grayscale color flow and M-mode Doppler FINDINGS: There is a single intrauterine fetus. The fetus is in a cephalic presentation. There is demonstrated cardiac activity with a heart rate of 148 bpm. There is a normal amniotic fluid volume. The largest amniotic fluid pocket measures 3.8 cm. The amniotic fluid index (NAZARIO) is 7.6 cm. The placenta is anterior, grade 2 without evidence of abruption or previa There are Grade 0 placental changes. The cervix measures obscured by cranial shadow cm in length. BIOMETRY: BPD: 8.4 cm: 33 weeks, 6 days HC: 31.1 cm: 34 weeks, 5 days AC: 30.0 cm: 33 weeks, 5 days FL: 6.9 cm: 35 weeks, 2 days age by current US: 34 weeks, 0 days. ANALI by current US: January 06, 2024. Estimated weight: 2391 grams, +/- 359 grams, 12 percentile compared to prior dating US/OB Limited With Biometrics IMPRESSION: Single live intrauterine with current cephalic presentation. Normal heart rate. growth as above with weight at the 12th percentile compared to prior dating Electronically Signed: Jean Marie Hebert MD at 8:16 EDT , CC: Dr. Tiffanie Barrios DO; No Primary Care Physician Financial Operations Clerk: Signed Normal [facility] Dressing Room Attendant Office Visit Reporton 11-25-2023 Dressing Room Attendant Office Visit Report [facility] [place] [address], [address] [place] [address] OFFICE VISIT Date of Service: 11/25/23 MR#: [id number] Acct: [id number] Name: KATHLEEN POWELL Rep #: [id number] : 2005 Provider: Dr. Tiffanie Casillas DO Age/Sex: 18/F Location: [facility] Status: Signed Intake Vital Signs 11/14/23 17:28 11/21/23 15:12 11/25/23 15:23 11/25/23 15:25 Height 5 ft 5 in 5 ft 5 in 5 ft 5 in 5 ft 5 in Weight: 190 lb 4 oz BMI 31.6 BP 136/92 H Intake Visit Reasons: 36 WK OB/NST Associate Entertainment Editor Required: No Is patient in pain?: No Allergies No Known Allergies Allergy (Verified 11/25/23 15:22) Medications ???Medication ???Instructions ???Recorded ???Confirmed ???Type PNV 178-FA 180 mcg-om3 35 mg-dha 1 tab PO DAILY 05/16/23 11/25/23 History 25 mg-epa 5 mg-fish oil chew tablet breast pump #1 ea 10/02/23 11/25/23 Rx Last Menstrual Period: 02/12/23 Zika: Zika virus screening: Negative : No PFSH PFSH Medical History Unknown varicella vaccination status Instability of right patellofemoral joint Right knee pain Instability of left patellofemoral joint Left knee pain Social History adopted: No household members: family current occupational status: employed 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 current occupational exposures/hazards: No pets and animals: Yes (Avoid litterbox) pets and animals: cat(s) and dog(s) history of recent travel: No sexually active: Yes Smoking Status: Former smoker Tobacco: How many years used: 6 Electronic Cigarette Use: with nicotine how long ago did patient quit smokin month ago alcohol intake: current alcohol intake frequency: holidays/special occasions only details: not while substance use type: marijuana well-balanced diet: daily or most days caffeine: No eating out: 1-3 times/week during the past year weight has: remained stable what type of physical activity do you participate in: none dimple/amish: None seatbelt use: always do you feel safe at home: Yes additional social history: BLAKE [place]- not really involved History 1 Elective abortions Hx Para 0 Spontaneous abortions Hx # Term Pregnancies Ectopic pregnancies Hx # Pregnancies Multiple births # of living children HPI 36 WK OB/NST Details: KATHLEEN POWELL is a 18 year old who presents for routine OB visit. OB Visit ANALI Calculator Estimated Delivery Date Method Current WG Current Estimate 12/22/23 Ultrasound #1 36w 1d Expected Delivery Route/Plan Labor Preferences- CB/BF classes: encouraged labor support person: BLAKE Ackerman and her mother Esha labor intervention preferences: pain management options preferred: epidural cut cord/dad catch: Tyron maybe : yes PP control planned: wants pills only. Discussed LARC and depo and declines discussed possible routes of delivery and associated risks: [] special requests: [] Specific Issue/Plans Covid status: [] Flu vaccine: [] Tdap vaccine: 10/01 Rhogam: NA LARC form signed: yes Problem list reviewed and updated with the most current plan of care details and appropriate orders placed. Relevant counseling for the gestational age provided. Continue routine care and follow up unless otherwise noted in visit notes/problem list details Initial Weight: Not Recorded Date -???-???-???-???-???-?? ?-???-???-???-???-???-? ??- EGA Weight BP Urine Prot -???-???-???-???-???-?? ?-???-???-???-???-???-? ??- Glucose FHR FuHt Pres Dilation -???-???-???-???-???-?? ?-???-???-???-???-???-? ??- Effaced St Visit Note 05/20/23 -???-???-???-???-???-?? ?-???-???-???-???-???-? ??- 9w 1d 174 lb 2 oz 138/82 -???-???-???-???-???-?? ?-???-???-???-???-???-? ??- 168 -???-???-???-???-???-?? ?-???-???-???-???-???-? ??- KW- CRL cons with dates. NIPT requested 06/18/23 -???-???-???-???-???-?? ?-???-???-???-???-???-? ??- 13w 2d 172 lb 122/78 Negative -???-???-???-???-???-?? ?-???-???-???-???-???-? ??- Negative 175 -???-???-???-???-???-?? ?-???-???-???-???-???-? ??- RoniV- yadyfilipe i s low risk boy! no complaints today. encouraged to wear a mask at work. 07/14/23 -???-???-???-???-???-?? ?-???-???-???-???-???-? ??- 17w 0d 178 lb 6 oz 120/72 Negative -???-???-???-???-???-?? ?-???-???-???-???-???-? ??- Negative 154 -???-???-???-???-???-?? ?-???-???-???-???-???-? ??- MH-No VB. Mi ld cramping. States good support system in place. Involved with a yazdanism support group. Also at [facility]. Generalized itching sukhi thighs, arms. No rash. call if worsens. Try claritan. No pain. 08/15/23 -???-???-???-???-???-?? ?-???-???-???-???-???-? (more content not included)... Normal [facility] Dressing Room Attendant Office Visit Reporton 11-21-2023 Dressing Room Attendant Office Visit Report [facility] [address], [address] [place] [address] OFFICE VISIT Date of Service: 11/21/23 MR#: [id number] Acct: [id number] Name: KATHLEEN POWELL NEEL Rep #: [id number] : 2005 Provider: Dr. Tiffanie Casillas DO Age/Sex: 18/F Location: [facility] Status: Signed with Addenda ADDENDUM by Dr. Tiffanie Barrios DO on 12/01/23 at 1635 Assessment and Plan Assessment and Plan (1) Gestational hypertension: Status: Acute Qualifiers: Trimester: third trimester Qualified Code(s): O13.3 - Gestational [-induced] hypertension without significant proteinuria, third trimester Comment: WP for r/o PEC. negative work up today. plan weekly PIH labs, twice weekly nsts, growth scan at 36 weeks. deliver at 37 weeks (2) Abnormal glucose affecting : Status: Acute Comment: normal 3 hr GTT (3) Contraception management: Status: Acute Qualifiers: Contraceptive encounter type: other general counseling and advice Qualified Code(s): Z30.09 - Encounter for other general counseling and advice on contraception Comment: She wants progesterone OCP only. Declines depo, IUD and nexplanon. 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 random screens -quit in mar. Used multiple times a day since 13. Tox 07/14/23:negative (5) Not immune to rubella: Status: Acute Comment: offer MMR (6) Former electronic cigarette use: Status: Acute Comment: quit 1 month ago. Doing well/not smoking (7) Supervision of high-risk : Status: Acute Qualifiers: Trimester: third trimester Qualified Code(s): O09.93 - Supervision of high risk , unspecified, third trimester Comment: [id number], ANALI 12/22/23, FOB Teriq:they are not together but he plans to be at delivery along with patient's mom Esha. Involved with yazdanism support group and P[facility] (8) : Status: Acute Qualifiers: Weeks of gestation: 36 weeks Qualified Code(s): Z3A.36 - 36 weeks gestation of Comment: normal anatomy, discussed genetic carrier testing NIPT low risk Orders: Orders POC Urinalysis 2 Dip (Clinic) 11/21/23 OB NST 11/21/23 O13.3 - Gestational [-induced] hypertension without significant proteinuria, third trimester CBC W/Diff, Automated 11/25/23 O13.3 - Gestational [-induced] hypertension without significant proteinuria, third trimester Protein+Creatinine Ratio,Urine 11/21/23 O13.3 - Gestational [-induced] hypertension without significant proteinuria, third trimester Comprehensive Metabolic Profil 11/25/23 O13.3 - Gestational [-induced] hypertension without significant proteinuria, third trimester Assessment Plan (1) Gestational hypertension: QUALIFIERS: Trimester: third trimester Qualified Code(s): O13.3 - Gestational [-induced] hypertension without significant proteinuria, third trimester COMMENT: WP for r/o PEC. negative work up today. plan weekly PIH labs, twice weekly nsts, growth scan at 36 weeks. deliver at 37 weeks (2) Abnormal glucose affecting : COMMENT: normal 3 hr GTT (3) Contraception management: QUALIFIERS: Contraceptive encounter type: other general counseling and advice Qualified Code(s): Z30.09 - Encounter for other general counseling and advice on contraception COMMENT: She wants progesterone OCP only. Declines depo, IUD and nexplanon. (4) 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 random screens -quit in feb. Used multiple times a day since 13. Tox 07/14/23:negative (5) Not immune to rubella: COMMENT: offer MMR (6) Former electronic cigarette use: COMMENT: quit 1 month ago. Doing well/not smoking (7) Supervision of high-risk : QUALIFIERS: Trimester: third trimester Qualified Code(s): O09.93 - Supervision of high risk , unspecified, third trimester COMMENT: [id number], ANALI 12/22/23, FOB Teriq:they are not together but he plans to be at delivery along with patient's mom Esha. Involved with yazdanism support group and [facility] (8) : QUALIFIERS: Weeks of gestation: 36 weeks Qualified Code(s): Z3A.36 - 36 weeks gestation of COMMENT: normal anatomy, discussed genetic carrier testing NIPT low risk 12/01/23 1635 Date Tiffanie Barrios DO cc: * Signed Intake Vital Signs 11/14/23 17:28 11/18/23 15:13 11/21/23 15:12 Height 5 ft 5 in 5 ft 5 in 5 ft 5 in Weight: 191 lb 191 lb 4 oz BMI 31.8 31.8 BP 135/88 H 130/87 H Intake Visit Reasons: 35 WK OB/NST Associate Entertainment Editor Required: No Is patient in pain?: No Allergies No Known Allergies Allergy (Verified 11/21/23 15:13) Medications ???Medication ???Instructions ???Recorded ???Confirmed ???Type PNV 178-FA 180 mcg-om (more content not included)... Normal [facility] Protein+Creatinine Ratio,Uri neon 11-21-2023 PROT:CRE RATIO 228 mg/g CRE High 0-200 [facility] Comment on above: Performed By: #### L 100.0500 #### [facility] [address] [place], [address] Protein (U) [Mass/Vol] 50.2 mg/dL High <11.9 [facility] Comment on above: Performed By: #### L 100.0500 #### [facility] [address] [place], [address] UR CREAT 220.00 mg/dL Normal NO RANGE EST. [facility] Comment on above: Performed By: #### L 100.0500 #### [facility] [address] [place], [address] Dressing Room Attendant Office Visit Reporton 11-18-2023 Dressing Room Attendant Office Visit Report [facility] [address], [address] [place] [address] OFFICE VISIT Date of Service: 11/18/23 MR#: [id number] Acct: [id number] Name: KATHLEEN POWELL NEEL Rep #: [id number] : 2005 Provider: CORNELIA aguilar Age/Sex: 18/F Location: [facility] Status: Signed Intake Vital Signs 11/14/23 17:28 11/18/23 15:06 11/18/23 15:13 Height 5 ft 5 in 5 ft 5 in 5 ft 5 in Weight: 191 lb BMI 31.8 BP 135/88 H Intake Visit Reasons: 35 WK NST ONLY Associate Entertainment Editor Required: No Is patient in pain?: No Allergies No Known Allergies Allergy (Verified 11/18/23 15:14) Medications ???Medication ???Instructions ???Recorded ???Confirmed ???Type PNV 178-FA 180 mcg-om3 35 mg-dha 1 tab PO DAILY 05/16/23 11/18/23 History 25 mg-epa 5 mg-fish oil chew tablet breast pump #1 ea 10/02/23 11/18/23 Rx Last Menstrual Period: 02/12/23 Zika: Zika virus screening: Negative : No Have you fallen in the past year?: No PFSH PFSH Medical History Unknown varicella vaccination status Instability of right patellofemoral joint Right knee pain Instability of left patellofemoral joint Left knee pain Social History adopted: No household members: family current occupational status: employed 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 current occupational exposures/hazards: No pets and animals: Yes (Avoid litterbox) pets and animals: cat(s) and dog(s) history of recent travel: No sexually active: Yes Smoking Status: Former smoker Tobacco: How many years used: 6 Electronic Cigarette Use: with nicotine how long ago did patient quit smokin month ago alcohol intake: current alcohol intake frequency: holidays/special occasions only details: not while substance use type: marijuana well-balanced diet: daily or most days caffeine: No eating out: 1-3 times/week during the past year weight has: remained stable what type of physical activity do you participate in: none dimple/amish: None seatbelt use: always do you feel safe at home: Yes additional social history: BLAKE Chadhitesh Chavez- not really involved History 1 Elective abortions Hx Para 0 Spontaneous abortions Hx # Term Pregnancies Ectopic pregnancies Hx # Pregnancies Multiple births # of living children HPI 35 WK NST ONLY Details: KATHLEEN POWELL is a 18 year old who presents for routine OB visit. OB Visit ANALI Calculator Estimated Delivery Date Method Current WG Current Estimate 12/22/23 Ultrasound #1 35w 1d Expected Delivery Route/Plan Labor Preferences- CB/BF classes: encouraged labor support person: BLAKE Ackerman and her mother Esha labor intervention preferences: pain management options preferred: epidural cut cord/dad catch: Tyron maybe : yes PP control planned: wants pills only. Discussed LARC and depo and declines discussed possible routes of delivery and associated risks: [] special requests: [] Specific Issue/Plans Covid status: [] Flu vaccine: [] Tdap vaccine: 10/01 Rhogam: NA LARC form signed: yes Problem list reviewed and updated with the most current plan of care details and appropriate orders placed. Relevant counseling for the gestational age provided. Continue routine care and follow up unless otherwise noted in visit notes/problem list details Initial Weight: Not Recorded Date -???-???-???-???-???-?? ?-???-???-???-???-???-? ??- EGA Weight BP Urine Prot -???-???-???-???-???-?? ?-???-???-???-???-???-? ??- Glucose FHR FuHt Pres Dilation -???-???-???-???-???-?? ?-???-???-???-???-???-? ??- Effaced St Visit Note 05/20/23 -???-???-???-???-???-?? ?-???-???-???-???-???-? ??- 9w 1d 174 lb 2 oz 138/82 -???-???-???-???-???-?? ?-???-???-???-???-???-? ??- 168 -???-???-???-???-???-?? ?-???-???-???-???-???-? ??- KW- CRL cons with dates. NIPT requested 06/18/23 -???-???-???-???-???-?? ?-???-???-???-???-???-? ??- 13w 2d 172 lb 122/78 Negative -???-???-???-???-???-?? ?-???-???-???-???-???-? ??- Negative 175 -???-???-???-???-???-?? ?-???-???-???-???-???-? ??- RoniV- susanne i s low risk boy! no complaints today. encouraged to wear a mask at work. 07/14/23 -???-???-???-???-???-?? ?-???-???-???-???-???-? ??- 17w 0d 178 lb 6 oz 120/72 Negative -???-???-???-???-???-?? ?-???-???-???-???-???-? ??- Negative 154 -???-???-???-???-???-?? ?-???-???-???-???-???-? ??- -No VB. Mi ld cramping. States good support system in place. Involved with a yazdanism support group. Also at [facility]. Generalized itching sukhi thighs, arms. No rash. call if worsens. Try claritan. No pain. 08/15/23 -???-???-???-???-???-?? ?-???-???-???-???-???-? ??- (more content not included)... Normal [facility] AST(SGOT)on 11-14-2023 AST [Catalytic activity/Vol] 10 U/L Low 15-37 [facility] Comment on above: Performed By: #### L 501.1400, L501.4100, L501.4405, L100.0500, L501.1105, L501.0900 ####[facility] [address] [place], [place], [id number] Alanine Aminotransferas (SGP T)on 11-14-2023 ALT [Catalytic activity/Vol] 16 U/L Normal 13-56 [facility] Comment on above: Performed By: #### L 501.1400, L501.4100, L501.4405, L100.0500, L501.1105, L501.0900 ####[facility] [address] [place], [address] CBC-Complete Blood Cnt No Di ffon 11-14-2023 Erythrocyte distribution width (RBC) [Ratio] 13.0 % Normal 11.6-14.6 [facility] Comment on above: Performed By: #### L 501.1400, L501.4100, L501.4405, L100.0500, L501.1105, L501.0900 ####[facility] [address] [place], [address] Hematocrit (Bld) [Volume fraction] 39.7 % Normal 37-47 [facility] Comment on above: Performed By: #### L 501.1400, L501.4100, L501.4405, L100.0500, L501.1105, L501.0900 ####[facility] [address] [place], [address] Hemoglobin (Bld) [Mass/Vol] 13.2 g/dL Normal 12.0-15.0 [facility] Comment on above: Performed By: #### L 501.1400, L501.4100, L501.4405, L100.0500, L501.1105, L501.0900 ####[facility] [address] [place], [address] MCH (RBC) [Entitic mass] 29.1 pg Normal 27.0-32.0 [facility] Comment on above: Performed By: #### L 501.1400, L501.4100, L501.4405, L100.0500, L501.1105, L501.0900 ####[facility] [address] [place], [address] MCHC (RBC) [Mass/Vol] 33.2 g/dL Normal 32-36 [facility] Comment on above: Performed By: #### L 501.1400, L501.4100, L501.4405, L100.0500, L501.1105, L501.0900 ####[facility] [address] [place], [address] MCV (RBC) [Entitic vol] 87.6 fL Normal 81-99 [facility] Comment on above: Performed By: #### L 501.1400, L501.4100, L501.4405, L100.0500, L501.1105, L501.0900 ####[facility] [address] [place], [address] Platelet mean volume (Bld) [Entitic vol] 10.5 fL Normal 6.2-12.0 [facility] Comment on above: Performed By: #### L 501.1400, L501.4100, L501.4405, L100.0500, L501.1105, L501.0900 ####[facility] [address] [place], [address] Platelets (Bld) [#/Vol] 236 10*3/uL Normal 150-450 [facility] Comment on above: Performed By: #### L 501.1400, L501.4100, L501.4405, L100.0500, L501.1105, L501.0900 ####[facility] [address] [place], [address] RBC (Bld) [#/Vol] 4.53 10*6/uL Normal 4.2-5.4 [facility] Comment on above: Performed By: #### L 501.1400, L501.4100, L501.4405, L100.0500, L501.1105, L501.0900 ####[facility] [address] [place], [address] RDW SD 41.4 fl Normal 35.1-43.9 [facility] Comment on above: Performed By: #### L 501.1400, L501.4100, L501.4405, L100.0500, L501.1105, L501.0900 ####[facility] [address] [place], [address] WBC (Bld) [#/Vol] 12.0 10*3/uL High 4.4-11.0 [facility] Comment on above: Performed By: #### L 501.1400, L501.4100, L501.4405, L100.0500, L501.1105, L501.0900 ####[facility] [address] [place], [place], [address] OB Triage Physician Noteon 0 11-14-2023 OB Triage Physician Note [facility] Medical Records Department [address] [place] [address] OB Triage Physician Note 11/14/23 1852 MR#: [id number] Acct: [id number] Name: KATHLEEN POWELL NEEL Rep #: [id number] : 2005 18 From: Tiffanie Barrios DO PCP: Care Physician,No Primary Status:DEP CLI Y Location: [facility] HPI - General HPI Narrative KATHLEEN POWELL, is a 18 y/o @ 34 weeks 4 days who presents to [facility] with elevated blood pressure and to rule out pre-eclampsia. She denies headaches, visual changes, epigastric pain, nausea or vomiting. Her only complaint is fatigue. 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 BP's on [facility] have been normal to high with rest. PIH labs are all normal. Maternal Data Information ANALI Calculator Estimated Delivery Date Method Current WG Current Estimate 12/22/23 Ultrasound #1 34w 4d PFSH PFS Medical History Unknown varicella vaccination status Instability of right patellofemoral joint Right knee pain Instability of left patellofemoral joint Left knee pain Home Medications ???Medication ???Instructions ???Recorded ???Last Taken ???Type PNV 178-FA 180 mcg-om3 35 mg-dha 1 tab PO DAILY 05/16/23 Unknown History 25 mg-epa 5 mg-fish oil chew tablet breast pump #1 ea 10/02/23 Unknown Rx Allergy/AdvReac Type Severity Reaction Status Date / Time No Known Allergies Allergy Verified 11/14/23 17:30 Social History adopted: No household members: family current occupational status: employed 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 current occupational exposures/hazards: No pets and animals: Yes (Avoid litterbox) pets and animals: cat(s) and dog(s) history of recent travel: No sexually active: Yes Smoking Status: Former smoker Tobacco: How many years used: 6 Electronic Cigarette Use: with nicotine how long ago did patient quit smokin month ago alcohol intake: current alcohol intake frequency: holidays/special occasions only details: not while substance use type: marijuana well-balanced diet: daily or most days caffeine: No eating out: 1-3 times/week during the past year weight has: remained stable what type of physical activity do you participate in: none dimple/amish: None seatbelt use: always do you feel safe at home: Yes additional social history: BLAKE Cadenalan- not really involved History 1 Elective abortions Hx Para 0 Spontaneous abortions Hx # Term Pregnancies Ectopic pregnancies Hx # Pregnancies Multiple births # of living children Visit Details Expected Delivery Route/Plan Labor Preferences- CB/BF classes: encouraged labor support person: BLAKE Ackerman and her mother Esha labor intervention preferences: pain management options preferred: epidural cut cord/dad catch: Tyron maybe : yes PP control planned: wants pills only. Discussed LARC and depo and declines discussed possible routes of delivery and associated risks: [] special requests: [] Plans Covid status: [] Flu vaccine: [] Tdap vaccine: 10/01 Rhogam: NA LARC form signed: yes Problem list reviewed and updated with the most current plan of care details and appropriate orders placed. Relevant counseling for the gestational age provided. Continue routine care and follow up unless otherwise noted in visit notes/problem list details OB Flowsheet Initial Weight: Not Recorded Date -???-???-???-???-???-?? ?-???-???-???-???-???-? ??- EGA Weight BP Urine Prot -???-???-???-???-???-?? ?-???-???-???-???-???-? ??- Glucose FHR FuHt Pres Dilation -???-???-???-???-???-?? ?-???-???-???-???-???-? ??- Effaced St Visit Note 05/20/23 -???-???-???-???-???-?? ?-???-???-???-???-???-? ??- 9w 1d 174 lb 2 oz 138/82 -???-???-???-???-???-?? ?-???-???-???-???-???-? ??- 168 -???-???-???-???-???-?? ?-???-???-???-???-???-? ??- KW- CRL cons with dates. NIPT requested 06/18/23 -???-???-???-???-???-?? ?-???-???-???-???-???-? ??- 13w 2d 172 lb 122/78 Negative -???-???-???-???-???-?? ?-???-???-???-???-???-? ??- Negative 175 -???-???-???-???-???-?? ?-???-???-???-???-???-? ??- XIOMARA- susanne mcmahon s low risk boy! no complaints today. encouraged to wear a mask at work. 07/14/23 -???-???-???-???-???-?? ?-???-???-???-???-???-? ??- 17w 0d 178 lb 6 oz 120/72 Negative -???-???-???-???-???-?? ?-???-???-???-???-???-? ??- Negative 154 -???-???-???-???-???-?? ?-???-???-???-???-???-? ??- MH-No VB. Mi ld cramping. States good support system in place. Involved with a yazdanism support group. Also at [facility]. Generalized itching sukhi thighs, arms. No rash. call if worsens. Try claritan. No pain. (more content not included)... Normal [facility] Dressing Room Attendant Office Visit Reporton 11-14-2023 Dressing Room Attendant Office Visit Report [facility] [address], [address] [place] [address] OFFICE VISIT Date of Service: 11/14/23 MR#: [id number] Acct: [id number] Name: KATHLEEN POWELL NEEL Rep #: [id number] : 2005 Provider: ANABELLE grissom Age/Sex: 18/F Location: [facility] Status: Signed with Addenda ADDENDUM by ANABELLE Gaspar on 11/20/23 at 0918 Assessment and Plan Assessment and Plan (1) : Status: Acute Qualifiers: Weeks of gestation: 32 weeks Qualified Code(s): Z3A.32 - 32 weeks gestation of Comment: normal anatomy, discussed genetic carrier testing NIPT low risk (2) Supervision of high-risk : Status: Acute Qualifiers: Trimester: third trimester Qualified Code(s): O09.93 - Supervision of high risk , unspecified, third trimester Comment: [id number], ANALI 12/22/23, FOB Teriq:they are not together but he plans to be at delivery along with patient's mom Esha. Involved with yazdanism support group and [facility] (3) Gestational hypertension: Status: Acute Qualifiers: Trimester: third trimester Qualified Code(s): O13.3 - Gestational [-induced] hypertension without significant proteinuria, third trimester Comment: WP for r/o PEC. negative work up today. plan weekly PIH labs, twice weekly nsts, growth scan at 36 weeks. deliver at 37 weeks Orders: Orders POC Urinalysis 2 Dip (Clinic) 11/14/23 11/20/23917 Date Terri Gaspar CNM cc: * Signed Intake Vital Signs 10/02/23 09:47 10/29/23 08:35 11/14/23 15:43 11/14/23 15:45 Height 5 ft 5 in 5 ft 5 in 5 ft 5 in 5 ft 5 in Weight: 191 lb BMI 31.8 BP 145/95 H 140/93 H Intake Visit Reasons: 34 wk ob Associate Entertainment Editor Required: No Is patient in pain?: No Allergies No Known Allergies Allergy (Verified 11/14/23 15:43) Medications ???Medication ???Instructions ???Recorded ???Confirmed ???Type PNV 178-FA 180 mcg-om3 35 mg-dha 1 tab PO DAILY 05/16/23 11/14/23 History 25 mg-epa 5 mg-fish oil chew tablet breast pump #1 ea 10/02/23 11/14/23 Rx Last Menstrual Period: 02/12/23 Zika: Zika virus screening: Negative : No Have you fallen in the past year?: No PFSH PFSH Medical History Unknown varicella vaccination status Instability of right patellofemoral joint Right knee pain Instability of left patellofemoral joint Left knee pain Social History adopted: No household members: family current occupational status: employed 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 current occupational exposures/hazards: No pets and animals: Yes (Avoid litterbox) pets and animals: cat(s) and dog(s) history of recent travel: No sexually active: Yes Smoking Status: Former smoker Tobacco: How many years used: 6 Electronic Cigarette Use: with nicotine how long ago did patient quit smokin month ago alcohol intake: current alcohol intake frequency: holidays/special occasions only details: not while substance use type: marijuana well-balanced diet: daily or most days caffeine: No eating out: 1-3 times/week during the past year weight has: remained stable what type of physical activity do you participate in: none dimple/amish: None seatbelt use: always do you feel safe at home: Yes additional social history: BLAKE Cadenalan- not really involved History 1 Elective abortions Hx Para 0 Spontaneous abortions Hx # Term Pregnancies Ectopic pregnancies Hx # Pregnancies Multiple births # of living children HPI 34 wk ob Details: KATHLEEN POWELL is a 18 year old who presents for routine OB visit. OB Visit ANALI Calculator Estimated Delivery Date Method Current WG Current Estimate 12/22/23 Ultrasound #1 34w 4d Expected Delivery Route/Plan Labor Preferences- CB/BF classes: encouraged labor support person: BLAKE Ackerman and her mother Esha labor intervention preferences: pain management options preferred: epidural cut cord/dad catch: Tyron maybe : yes PP control planned: wants pills only. Discussed LARC and depo and declines discussed possible routes of delivery and associated risks: [] special requests: [] Specific Issue/Plans Covid status: [] Flu vaccine: [] Tdap vaccine: 10/01 Rhogam: NA LARC form signed: yes Problem list reviewed and updated with the most current plan of care details and appropriate orders placed. Relevant counseling for the gestational age provided. Continue routine care and follow up unless otherwise noted in visit notes/problem list details Initial Weight: Not Recorded Date -???-???-???-???-?? (more content not included)... Normal [facility] Protein+Creatinine Ratio,Uri neon 11-14-2023 PROT:CRE RATIO 237 mg/g CRE High 0-200 [facility] Comment on above: Performed By: #### L 501.1400, L501.4100, L501.4405, L100.0500, L501.1105, L501.0900 ####[facility] [address] [place], [address] Protein (U) [Mass/Vol] 36.2 mg/dL High <11.9 [facility] Comment on above: Performed By: #### L 501.1400, L501.4100, L501.4405, L100.0500, L501.1105, L501.0900 ####[facility] [address] [place], [address] UR CREAT 153.00 mg/dL Normal NO RANGE EST. [facility] Comment on above: Performed By: #### L 501.1400, L501.4100, L501.4405, L100.0500, L501.1105, L501.0900 ####[facility] [address] [place], [address] Serum Creatinine AND GFRon 0 11-14-2023 Creatinine [Mass/Vol] 0.54 mg/dL Low 0.55-1.02 [facility] Comment on above: Result Comment: The validity of the calculated GFR GFRAA in patients over 70 years has not been determined. Clinical correlation is essential. Performed By: #### L 501.1400, L501.4100, L501.4405, L100.0500, L501.1105, L501.0900 ####[facility] [address] [place], [address] ECRCL 182.14 ml/min Normal [facility] Comment on above: Performed By: #### L 501.1400, L501.4100, L501.4405, L100.0500, L501.1105, L501.0900 ####[facility] [address] [place], [address] EST GFR - AA 188 mL/min Normal >60 [facility] Comment on above: Result Comment: Afri can Togolese GFR Calc Performed By: #### L 501.1400, L501.4100, L501.4405, L100.0500, L501.1105, L501.0900 ####[facility] [address] [place], [address] GFR/1.73 sq M.predicted among non-blacks MDRD (S/P/Bld) [Vol rate/Area] 155 mL/min/{1.73_m2} Normal >60 [facility] Comment on above: Result Comment: Non- GFR Calc Performed By: #### L 501.1400, L501.4100, L501.4405, L100.0500, L501.1105, L501.0900 ####[facility] [address] [place], [place], [address] Uric Acidon 11-14-2023 URIC 3.5 mg/dL Normal 2.6-6.0 [facility] Comment on above: Result Comment: The drugs N-Acetylcysteine and Metamizole may falsely depress this assay. Performed By: #### L 501.1400, L501.4100, L501.4405, L100.0500, L501.1105, L501.0900 ####[facility] [address] [place], [place], [address] Dressing Room Attendant Office Visit Reporton 10-29-2023 Dressing Room Attendant Office Visit Report [facility] [address], [address] [place] [address] OFFICE VISIT Date of Service: 10/29/23 MR#: [id number] Acct: [id number] Name: KATHLEEN POWELL NEEL Rep #: [id number] : 2005 Provider: CORNELIA aguilar Age/Sex: 18/F Location: [facility] Status: Signed Intake Vital Signs 10/02/23 09:47 10/19/23 15:21 10/29/23 08:32 10/29/23 08:35 Height 5 ft 5 in 5 ft 5 in 5 ft 5 in 5 ft 5 in Weight: 189 lb BMI 31.4 BP 120/76 Intake Visit Reasons: 32 wk ob Chief Complaint: 32 Week OB Associate Entertainment Editor Required: No Is patient in pain?: No Allergies No Known Allergies Allergy (Verified 10/29/23 08:31) Medications ???Medication ???Instructions ???Recorded ???Confirmed ???Type PNV 178-FA 180 mcg-om3 35 mg-dha 1 tab PO DAILY 05/16/23 10/29/23 History 25 mg-epa 5 mg-fish oil chew tablet breast pump #1 ea 10/02/23 10/29/23 Rx Last Menstrual Period: 02/12/23 Zika: Zika virus screening: Negative : No PFSH PFSH Medical History Unknown varicella vaccination status Instability of right patellofemoral joint Right knee pain Instability of left patellofemoral joint Left knee pain Social History adopted: No household members: family current occupational status: employed 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 current occupational exposures/hazards: No pets and animals: Yes (Avoid litterbox) pets and animals: cat(s) and dog(s) history of recent travel: No sexually active: Yes Smoking Status: Former smoker Tobacco: How many years used: 6 Electronic Cigarette Use: with nicotine how long ago did patient quit smokin month ago alcohol intake: current alcohol intake frequency: holidays/special occasions only details: not while substance use type: marijuana well-balanced diet: daily or most days caffeine: No eating out: 1-3 times/week during the past year weight has: remained stable what type of physical activity do you participate in: none dimple/amish: None seatbelt use: always do you feel safe at home: Yes additional social history: BLAKE Chadhitesh Chavez- not really involved History 1 Elective abortions Hx Para 0 Spontaneous abortions Hx # Term Pregnancies Ectopic pregnancies Hx # Pregnancies Multiple births # of living children HPI 32 wk ob Details: KATHLEEN POWELL is a 18 year old who presents for routine OB visit. OB Visit ANALI Calculator Estimated Delivery Date Method Current WG Current Estimate 12/22/23 Ultrasound #1 32w 2d Expected Delivery Route/Plan Labor Preferences- CB/BF classes: encouraged labor support person: BLAKE Ackerman and her mother Esha labor intervention preferences: pain management options preferred: epidural cut cord/dad catch: Tyron maybe : yes PP control planned: wants pills only. Discussed LARC and depo and declines discussed possible routes of delivery and associated risks: [] special requests: [] Specific Issue/Plans Covid status: [] Flu vaccine: [] Tdap vaccine: 10/01 Rhogam: NA LARC form signed: yes Problem list reviewed and updated with the most current plan of care details and appropriate orders placed. Relevant counseling for the gestational age provided. Continue routine care and follow up unless otherwise noted in visit notes/problem list details Initial Weight: Not Recorded Date -???-???-???-???-???-?? ?-???-???-???-???-???-? ??- EGA Weight BP Urine Prot -???-???-???-???-???-?? ?-???-???-???-???-???-? ??- Glucose FHR FuHt Pres Dilation -???-???-???-???-???-?? ?-???-???-???-???-???-? ??- Effaced St Visit Note 05/20/23 -???-???-???-???-???-?? ?-???-???-???-???-???-? ??- 9w 1d 174 lb 2 oz 138/82 -???-???-???-???-???-?? ?-???-???-???-???-???-? ??- 168 -???-???-???-???-???-?? ?-???-???-???-???-???-? ??- KW- CRL cons with dates. NIPT requested 06/18/23 -???-???-???-???-???-?? ?-???-???-???-???-???-? ??- 13w 2d 172 lb 122/78 Negative -???-???-???-???-???-?? ?-???-???-???-???-???-? ??- Negative 175 -???-???-???-???-???-?? ?-???-???-???-???-???-? ??- JV- susanne i s low risk boy! no complaints today. encouraged to wear a mask at work. 07/14/23 -???-???-???-???-???-?? ?-???-???-???-???-???-? ??- 17w 0d 178 lb 6 oz 120/72 Negative -???-???-???-???-???-?? ?-???-???-???-???-???-? ??- Negative 154 -???-???-???-???-???-?? ?-???-???-???-???-???-? ??- -No VB. Mi ld cramping. States good support system in place. Involved with a yazdanism support group. Also at [facility]. Generalized itching sukhi thighs, arms. No rash. call if worsens. Try claritan. No pain. 08/15/23 -???-???-???-???-???-?? ?-???-???-???-? (more content not included)... Normal [facility] OB Triage Physician Noteon 0 10-19-2023 OB Triage Physician Note [facility] Medical Records Department [address] [place] [address] OB Triage Physician Note 10/19/23 1544 MR#: [id number] Acct: [id number] Name: KATHLEEN POWELL NEEL Rep #: [id number] : 2005 18 From: Terri Gaspar CNM PCP: Care Physician,No Primary Status:REG CLI Y Location: [place] [id number] HPI - General HPI Narrative KATHLEEN POWELL, is a 18 F who presents at 30.6 with decreased movement. no ctx/lof.vb. Maternal Data Information ANALI Calculator Estimated Delivery Date Method Current WG Current Estimate 12/22/23 Ultrasound #1 30w 6d PFSH PFSH Medical History Unknown varicella vaccination status Instability of right patellofemoral joint Right knee pain Instability of left patellofemoral joint Left knee pain Home Medications ???Medication ???Instructions ???Recorded ???Last Taken ???Type PNV 178-FA 180 mcg-om3 35 mg-dha 1 tab PO DAILY 05/16/23 Unknown History 25 mg-epa 5 mg-fish oil chew tablet breast pump #1 ea 10/02/23 Unknown Rx metronidazole 500 mg tablet 500 mg PO BID BV 7 days #14 tabs 10/16/23 Unknown Rx Allergy/AdvReac Type Severity Reaction Status Date / Time No Known Allergies Allergy Verified 10/19/23 15:20 Social History adopted: No household members: family current occupational status: employed 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 current occupational exposures/hazards: No pets and animals: Yes (Avoid litterbox) pets and animals: cat(s) and dog(s) history of recent travel: No sexually active: Yes Smoking Status: Former smoker Tobacco: How many years used: 6 Electronic Cigarette Use: with nicotine how long ago did patient quit smokin month ago alcohol intake: current alcohol intake frequency: holidays/special occasions only details: not while substance use type: marijuana well-balanced diet: daily or most days caffeine: No eating out: 1-3 times/week during the past year weight has: remained stable what type of physical activity do you participate in: none dimple/amish: None seatbelt use: always do you feel safe at home: Yes additional social history: BLAKE Chavez- not really involved History 1 Elective abortions Hx Para 0 Spontaneous abortions Hx # Term Pregnancies Ectopic pregnancies Hx # Pregnancies Multiple births # of living children Visit Details Expected Delivery Route/Plan Labor Preferences- CB/BF classes: encouraged labor support person: BLAKE Ackerman and her mother Esha labor intervention preferences: pain management options preferred: epidural cut cord/dad catch: Teriq maybe : yes PP control planned: wants pills only. Discussed LARC and depo and declines discussed possible routes of delivery and associated risks: [] special requests: [] Plans Covid status: [] Flu vaccine: [] Tdap vaccine: 10/01 Rhogam: NA LARC form signed: yes Problem list reviewed and updated with the most current plan of care details and appropriate orders placed. Relevant counseling for the gestational age provided. Continue routine care and follow up unless otherwise noted in visit notes/problem list details OB Flowsheet Initial Weight: Not Recorded Date -???-???-???-???-???-?? ?-???-???-???-???-???-? ??- EGA Weight BP Urine Prot -???-???-???-???-???-?? ?-???-???-???-???-???-? ??- Glucose FHR FuHt Pres Dilation -???-???-???-???-???-?? ?-???-???-???-???-???-? ??- Effaced St Visit Note 05/20/23 -???-???-???-???-???-?? ?-???-???-???-???-???-? ??- 9w 1d 174 lb 2 oz 138/82 -???-???-???-???-???-?? ?-???-???-???-???-???-? ??- 168 -???-???-???-???-???-?? ?-???-???-???-???-???-? ??- KW- CRL cons with dates. NIPT requested 06/18/23 -???-???-???-???-???-?? ?-???-???-???-???-???-? ??- 13w 2d 172 lb 122/78 Negative -???-???-???-???-???-?? ?-???-???-???-???-???-? ??- Negative 175 -???-???-???-???-???-?? ?-???-???-???-???-???-? ??- XIOMARA- susanne i s low risk boy! no complaints today. encouraged to wear a mask at work. 07/14/23 -???-???-???-???-???-?? ?-???-???-???-???-???-? ??- 17w 0d 178 lb 6 oz 120/72 Negative -???-???-???-???-???-?? ?-???-???-???-???-???-? ??- Negative 154 -???-???-???-???-???-?? ?-???-???-???-???-???-? ??- -No VB. Mi ld cramping. States good support system in place. Involved with a yazdanism support group. Also at [facility]. Generalized itching sukhi thighs, arms. No rash. call if worsens. Try claritan. No pain. 08/15/23 -???-???-???-???-???-?? ?-???-???-???-???-???-? ??- 21w 4d 176 lb 8 oz 132/78 Negative -???-???-???-???-???-?? ?-???-???-???-???-???-? ??- Negative 144 -???-???-???-???-???-?? ?-???-???-???-???-???-? ??- JV- itching is only on the breasts. no other complai (more content not included)... Normal [facility] Dressing Room Attendant Office Visit Reporton 10-16-2023 Dressing Room Attendant Office Visit Report [facility] [address], [address] [place] [address] OFFICE VISIT Date of Service: 10/16/23 MR#: [id number] Acct: [id number] Name: KATHLEEN POWELL NEEL Rep #: [id number] : 2005 Provider: ANABELLE Oglesby ams Age/Sex: 18/F Location: [facility] Status: Signed Intake Vital Signs 10/02/23 09:47 10/02/23 10:21 10/16/23 15:19 10/16/23 15:22 Height 5 ft 5 in 5 ft 5 in 5 ft 5 in 5 ft 5 in Weight: 190 lb BMI 31.6 Intake Visit Reasons: 30 wk ob Associate Entertainment Editor Required: No Is patient in pain?: No Allergies No Known Allergies Allergy (Verified 10/16/23 15:19) Medications ???Medication ???Instructions ???Recorded ???Confirmed ???Type ondansetron 4 mg disintegrating 4 mg PO Q6H PRN nausea and 05/07/23 10/16/23 Rx tablet vomiting #30 tabs PNV 178-FA 180 mcg-om3 35 mg-dha tab PO 05/16/23 10/16/23 History 25 mg-epa 5 mg-fish oil chew tablet breast pump #1 ea 10/02/23 10/16/23 Rx metronidazole 500 mg tablet 500 mg PO BID BV 7 days #14 tabs 10/16/23 10/16/23 Rx Last Menstrual Period: 02/12/23 Zika: Zika virus screening: Negative : No Have you fallen in the past year?: No PFSH PFSH Medical History Unknown varicella vaccination status Instability of right patellofemoral joint Right knee pain Instability of left patellofemoral joint Left knee pain Social History adopted: No household members: family current occupational status: employed 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 current occupational exposures/hazards: No pets and animals: Yes (Avoid litterbox) pets and animals: cat(s) and dog(s) history of recent travel: No sexually active: Yes Smoking Status: Former smoker Tobacco: How many years used: 6 Electronic Cigarette Use: with nicotine how long ago did patient quit smokin month ago alcohol intake: current alcohol intake frequency: holidays/special occasions only details: not while substance use type: marijuana well-balanced diet: daily or most days caffeine: No eating out: 1-3 times/week during the past year weight has: remained stable what type of physical activity do you participate in: none dimple/amish: None seatbelt use: always do you feel safe at home: Yes additional social history: BLAKE Chadhitesh Chavez- not really involved History 1 Elective abortions Hx Para 0 Spontaneous abortions Hx # Term Pregnancies Ectopic pregnancies Hx # Pregnancies Multiple births # of living children HPI 30 wk ob Details: KATHLEEN POWELL is a 18 year old who presents for routine OB visit. OB Visit ANALI Calculator Estimated Delivery Date Method Current WG Current Estimate 12/22/23 Ultrasound #1 30w 3d Expected Delivery Route/Plan Labor Preferences- CB/BF classes: encouraged labor support person: BLAKE Ackerman and her mother Esha labor intervention preferences: pain management options preferred: epidural cut cord/dad catch: Tyron maybe : yes PP control planned: wants pills only. Discussed LARC and depo and declines discussed possible routes of delivery and associated risks: [] special requests: [] Specific Issue/Plans Covid status: [] Flu vaccine: [] Tdap vaccine: 10/01 Rhogam: NA LARC form signed: yes Problem list reviewed and updated with the most current plan of care details and appropriate orders placed. Relevant counseling for the gestational age provided. Continue routine care and follow up unless otherwise noted in visit notes/problem list details Initial Weight: Not Recorded Date -???-???-???-???-???-?? ?-???-???-???-???-???-? ??- EGA Weight BP Urine Prot -???-???-???-???-???-?? ?-???-???-???-???-???-? ??- Glucose FHR FuHt Pres Dilation -???-???-???-???-???-?? ?-???-???-???-???-???-? ??- Effaced St Visit Note 05/20/23 -???-???-???-???-???-?? ?-???-???-???-???-???-? ??- 9w 1d 174 lb 2 oz 138/82 -???-???-???-???-???-?? ?-???-???-???-???-???-? ??- 168 -???-???-???-???-???-?? ?-???-???-???-???-???-? ??- KW- CRL cons with dates. NIPT requested 06/18/23 -???-???-???-???-???-?? ?-???-???-???-???-???-? ??- 13w 2d 172 lb 122/78 Negative -???-???-???-???-???-?? ?-???-???-???-???-???-? ??- Negative 175 -???-???-???-???-???-?? ?-???-???-???-???-???-? ??- RoniV- susanne i s low risk boy! no complaints today. encouraged to wear a mask at work. 07/14/23 -???-???-???-???-???-?? ?-???-???-???-???-???-? ??- 17w 0d 178 lb 6 oz 120/72 Negative -???-???-???-???-???-?? ?-???-???-???-???-???-? ??- Negative 154 -???-???-???-???-???-?? ?-???-???-???-???-???-? ??- -No VB. Mi ld cramping. States good support system in place. Involved with a yazdanism suppor (more content not included)... Normal [facility] Bedside Glucoseon 10-07-2023 FINGERSTICK GLU 91 mg/dL Normal 74-106 [facility] Comment on above: Result Comment: L[place]IS CHANG OF PATIENT CARE PER NURSING PROTOCOL Performed By: #### L 100.0500 #### [facility] [address] [place], [place], [address] Gestational GTT 3HR 100gon 0 10-07-2023 3HR GTT- GEST. Normal [facility] Comment on above: Order Comment: Comme nts: Day #1 Reason for Laboratory Test Result Comment: FAST ING 96 Col: 10/07/23 0659 GLUCOSE TOLERANCE TEST FOR Reference Interval GESTATIONAL DIABETES Fasting <105 mg/dL 1 hour <190 mg/dl 2 hour <165 mg/dl 3 hour <145 mg/dl 1 HR GLU 167 Col: 10/07/23 0758 2 HR GLU 149 Col: 10/07/23 0858 3 HR GLU 108 Col: 10/07/23 0959 Performed By: #### L 100.0500 #### [facility] [address] [place], [place], [address] CBC W/Diff, Automatedon - Absolute Lymph 2.09 X10 3/uL Normal 0.83-4.51 [facility] Comment on above: Performed By: #### L 509.8000 #### [facility] [address] [place], [address] Absolute Neut 11.3 X10 3/uL High 2.0-7.7 [facility] Comment on above: Performed By: #### L 509.8000 #### [facility] [address] [place], [address] Basophils/100 WBC (Bld) 0.5 % Normal 0-1 [facility] Comment on above: Performed By: #### L 509.8000 #### [facility] [address] [place], [address] Eosinophils/100 WBC (Bld) 1.1 % Normal 0-5 [facility] Comment on above: Performed By: #### L 509.8000 #### [facility] [address] [place], [address] Erythrocyte distribution width (RBC) [Ratio] 12.8 % Normal 11.6-14.6 [facility] Comment on above: Performed By: #### L 509.8000 #### [facility] [address] [place], [address] Hematocrit (Bld) [Volume fraction] 38.0 % Normal 37-47 [facility] Comment on above: Performed By: #### L 509.8000 #### [facility] [address] [place], [address] Hemoglobin (Bld) [Mass/Vol] 13.1 g/dL Normal 12.0-15.0 [facility] Comment on above: Performed By: #### L 509.8000 #### [facility] [address] [place], [address] IG% 2.400 High 0.0-0.9 [facility] Comment on above: Result Comment: IG% - Immature Granulocytes (promyelocytes, myelocytes and metamyelocytes) > 1% indicates that a LEFT SHIFT is Present. Performed By: #### L 509.8000 #### [place] [facility] [address] [place], [address] Lymphocytes/100 WBC (Bld) 13.8 % Low 19-41 [facility] Comment on above: Performed By: #### L 509.8000 #### [facility] [address] [place], [address] MCH (RBC) [Entitic mass] 29.5 pg Normal 27.0-32.0 [facility] Comment on above: Performed By: #### L 509.8000 #### [facility] [address] [place], [address] MCHC (RBC) [Mass/Vol] 34.5 g/dL Normal 32-36 [facility] Comment on above: Performed By: #### L 509.8000 #### [facility] [address] [place], [address] MCV (RBC) [Entitic vol] 85.6 fL Normal 81-99 [facility] Comment on above: Performed By: #### L 509.8000 #### [facility] [address] [place], [address] Monocytes/100 WBC (Bld) 7.2 % Normal 0-10 [facility] Comment on above: Performed By: #### L 509.8000 #### [facility] [address] [place], [address] Neutrophils/100 WBC (Bld) 75.0 % High 47-70 [facility] Comment on above: Performed By: #### L 509.8000 #### [facility] [address] [place], [address] Nucleated RBC (Bld) [#/Vol] 0 10*3/uL Normal 0-5 [facility] Comment on above: Performed By: #### L 509.8000 #### [facility] [address] [place], [address] Platelet mean volume (Bld) [Entitic vol] 9.4 fL Normal 6.2-12.0 [facility] Comment on above: Performed By: #### L 509.8000 #### [facility] [address] [place], [address] Platelets (Bld) [#/Vol] 231 10*3/uL Normal 150-450 [facility] Comment on above: Performed By: #### L 509.8000 #### [facility] [address] [place], [address] RBC (Bld) [#/Vol] 4.44 10*6/uL Normal 4.2-5.4 [facility] Comment on above: Performed By: #### L 509.8000 #### [facility] [address] [place], [address] RDW SD 39.6 fl Normal 35.1-43.9 [facility] Comment on above: Performed By: #### L 509.8000 #### [facility] [address] [place], [address] WBC (Bld) [#/Vol] 15.1 10*3/uL High 4.4-11.0 [facility] Comment on above: Performed By: #### L 509.8000 #### [facility] [address] [place], [address] Glucose Challenge Gest 1H 50 lara 10-02-2023 GLU GEST 50g 1H 156 mg/dL High 70-140 [facility] Comment on above: Performed By: #### L 509.8000 #### [facility] [address] [place], [address] HIV - WCHon 10-02-2023 HIV Non-Reactive Normal Nonreactive [facility] Comment on above: Performed By: #### L 509.8000 #### [facility] [address] [place], [address] L509.8000on 10-02-2023 Syphilis Abs Non-Reactive Normal [facility] Comment on above: Performed By: #### L 509.8000 #### [facility] [address] [place], [address] Dressing Room Attendant Office Visit Reporton 10-02-2023 Dressing Room Attendant Office Visit Report [facility] [address] [place] [address] OFFICE VISIT Date of Service: 10/02/23 MR#: [id number] Acct: [id number] Name: KATHLEEN POWELL NEEL Rep #: [id number] : 2005 Provider: CORNELIA aguilar Age/Sex: 18/F Location: [facility] Status: Signed Intake Vital Signs 09/12/23 08:24 10/02/23 09:47 Height 5 ft 5 in 5 ft 5 in Weight: 186 lb 2 oz BMI 30.9 BP 130/81 H Intake Visit Reasons: 28 WK OB/GLUCOSE Associate Entertainment Editor Required: No Is patient in pain?: No Allergies No Known Allergies Allergy (Verified 10/02/23 09:55) Medications ???Medication ???Instructions ???Recorded ???Confirmed ???Type ondansetron 4 mg disintegrating 4 mg PO Q6H PRN nausea and 05/07/23 10/02/23 Rx tablet vomiting #30 tabs PNV 178-FA 180 mcg-om3 35 mg-dha tab PO 05/16/23 10/02/23 History 25 mg-epa 5 mg-fish oil chew tablet Last Menstrual Period: 02/12/23 Current gender identity: female Zika: Zika virus screening: Negative : No Have you fallen in the past year?: No PFSH PFSH Medical History Unknown varicella vaccination status Instability of right patellofemoral joint Right knee pain Instability of left patellofemoral joint Left knee pain Social History adopted: No household members: family current occupational status: employed 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 current occupational exposures/hazards: No pets and animals: Yes (Avoid litterbox) pets and animals: cat(s) and dog(s) history of recent travel: No sexually active: Yes Smoking Status: Former smoker Tobacco: How many years used: 6 Electronic Cigarette Use: with nicotine how long ago did patient quit smokin month ago alcohol intake: current alcohol intake frequency: holidays/special occasions only details: not while substance use type: marijuana well-balanced diet: daily or most days caffeine: No eating out: 1-3 times/week during the past year weight has: remained stable what type of physical activity do you participate in: none dimple/amish: None seatbelt use: always do you feel safe at home: Yes additional social history: BLAKE Chavez- not really involved History 1 Elective abortions Hx Para 0 Spontaneous abortions Hx # Term Pregnancies Ectopic pregnancies Hx # Pregnancies Multiple births # of living children HPI 28 WK OB/GLUCOSE Details: KATHLEEN POWELL is a 18 year old who presents for routine OB visit. OB Visit ANALI Calculator Estimated Delivery Date Method Current WG Current Estimate 12/22/23 Ultrasound #1 28w 3d Expected Delivery Route/Plan Labor Preferences- CB/BF classes: encouraged labor support person: BLAKE Tyron and her mother Esha labor intervention preferences: pain management options preferred: epidural cut cord/dad catch: Tyron maybe : yes PP control planned: wants pills only. Discussed LARC and depo and declines discussed possible routes of delivery and associated risks: [] special requests: [] Specific Issue/Plans Covid status: [] Flu vaccine: [] Tdap vaccine: 10/01 Rhogam: NA LARC form signed: yes Problem list reviewed and updated with the most current plan of care details and appropriate orders placed. Relevant counseling for the gestational age provided. Continue routine care and follow up unless otherwise noted in visit notes/problem list details Initial Weight: Not Recorded Date -???-???-???-???-???-?? ?-???-???-???-???-???-? ??- EGA Weight BP Urine Prot -???-???-???-???-???-?? ?-???-???-???-???-???-? ??- Glucose FHR FuHt Pres Dilation -???-???-???-???-???-?? ?-???-???-???-???-???-? ??- Effaced St Visit Note 05/20/23 -???-???-???-???-???-?? ?-???-???-???-???-???-? ??- 9w 1d 174 lb 2 oz 138/82 -???-???-???-???-???-?? ?-???-???-???-???-???-? ??- 168 -???-???-???-???-???-?? ?-???-???-???-???-???-? ??- KW- CRL cons with dates. NIPT requested 06/18/23 -???-???-???-???-???-?? ?-???-???-???-???-???-? ??- 13w 2d 172 lb 122/78 Negative -???-???-???-???-???-?? ?-???-???-???-???-???-? ??- Negative 175 -???-???-???-???-???-?? ?-???-???-???-???-???-? ??- XIOMARA- susanne mcmahon s low risk boy! no complaints today. encouraged to wear a mask at work. 07/14/23 -???-???-???-???-???-?? ?-???-???-???-???-???-? ??- 17w 0d 178 lb 6 oz 120/72 Negative -???-???-???-???-???-?? ?-???-???-???-???-???-? ??- Negative 154 -???-???-???-???-???-?? ?-???-???-???-???-???-? ??- MH-No VB. Mi ld cramping. States good support system in place. Involved with a yazdanism support group. Also at [facility]. Generalized itching sukhi thighs, arms. No rash. call if worsens. Try c (more content not included)... Normal [facility] Dressing Room Attendant Office Visit Reporton 09-12-2023 Dressing Room Attendant Office Visit Report [facility] [address] [place] [address] OFFICE VISIT Date of Service: 09/12/23 MR#: [id number] Acct: [id number] Name: KATHLEEN POWELL NEEL Rep #: [id number] : 2005 Provider: Dr. Tiffanie Casillas DO Age/Sex: 18/F Location: [facility] Status: Signed Intake Vital Signs 07/14/23 09:46 08/15/23 11:10 09/12/23 08:24 09/12/23 08:24 Height 5 ft 5 in 5 ft 5 in 5 ft 5 in 5 ft 5 in Weight: 186 lb 6 oz BMI 31.0 BP 113/71 Intake Visit Reasons: 25 WK OB Associate Entertainment Editor Required: No Is patient in pain?: No Allergies No Known Allergies Allergy (Verified 09/12/23 08:23) Medications ???Medication ???Instructions ???Recorded ???Confirmed ???Type ondansetron 4 mg disintegrating 4 mg PO Q6H PRN nausea and 05/07/23 09/12/23 Rx tablet vomiting #30 tabs PNV 178-FA 180 mcg-om3 35 mg-dha tab PO 05/16/23 09/12/23 History 25 mg-epa 5 mg-fish oil chew tablet Last Menstrual Period: 02/12/23 Zika: Zika virus screening: Negative : No PFSH PFSH Medical History Unknown varicella vaccination status Instability of right patellofemoral joint Right knee pain Instability of left patellofemoral joint Left knee pain Social History adopted: No household members: family current occupational status: employed 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 current occupational exposures/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: No pets and animals: Yes (Avoid litterbox) pets and animals: cat(s) and dog(s) history of recent travel: No sexually active: Yes Smoking Status: Former smoker Tobacco: How many years used: 6 Electronic Cigarette Use: with nicotine how long ago did patient quit smokin month ago alcohol intake: current alcohol intake frequency: holidays/special occasions only details: not while substance use type: marijuana well-balanced diet: daily or most days caffeine: No eating out: 1-3 times/week during the past year weight has: remained stable what type of physical activity do you participate in: none dimple/amish: None seatbelt use: always do you feel safe at home: Yes additional social history: FOB Chad Scott- not really involved History 1 Elective abortions Hx Para 0 Spontaneous abortions Hx # Term Pregnancies Ectopic pregnancies Hx # Pregnancies Multiple births # of living children HPI 25 WK OB Details: KATHLEEN POWELL is a 18 year old who presents for routine OB visit. OB Visit ANALI Calculator Estimated Delivery Date Method Current WG Current Estimate 12/22/23 Ultrasound #1 25w 4d Expected Delivery Route/Plan Labor Preferences- CB/BF classes: [] labor support person: [] labor intervention preferences: [] pain management options preferred: [] cut cord/dad catch: [] : [] PP control planned: [] discussed possible routes of delivery and associated risks: [] special requests: [] Specific Issue/Plans Covid status: [] Flu vaccine: [] Tdap vaccine: [] Rhogam: [] LARC form signed: [] Problem list reviewed and updated with the most current plan of care details and appropriate orders placed. Relevant counseling for the gestational age provided. Continue routine care and follow up unless otherwise noted in visit notes/problem list details Initial Weight: Not Recorded Date -???-???-???-???-???-?? ?-???-???-???-???-???-? ??- EGA Weight BP Urine Prot -???-???-???-???-???-?? ?-???-???-???-???-???-? ??- Glucose FHR FuHt Pres Dilation -???-???-???-???-???-?? ?-???-???-???-???-???-? ??- Effaced St Visit Note 05/20/23 -???-???-???-???-???-?? ?-???-???-???-???-???-? ??- 9w 1d 174 lb 2 oz 138/82 -???-???-???-???-???-?? ?-???-???-???-???-???-? ??- 168 -???-???-???-???-???-?? ?-???-???-???-???-???-? ??- KW- CRL cons with dates. NIPT requested 06/18/23 -???-???-???-???-???-?? ?-???-???-???-???-???-? ??- 13w 2d 172 lb 122/78 Negative -???-???-???-???-???-?? ?-???-???-???-???-???-? ??- Negative 175 -???-???-???-???-???-?? ?-???-???-???-???-???-? ??- JV- susanne i s low risk boy! no complaints today. encouraged to wear a mask at work. 07/14/23 -???-???-???-???-???-?? ?-???-???-???-???-???-? ??- 17w 0d 178 lb 6 oz 120/72 Negative -???-???-???-???-???-?? ?-???-???-???-???-???-? ??- Negative 154 -???-???-???-???-???-?? ?-???-???-???-???-???-? ??- -No VB. Mi ld cramping. States good support system in place. Involved with a yazdanism support group. Also at [facility]. Generalized itching sukhi thighs, arms. No rash. call if worsens. Try claritan. No pain. 08/15/23 -???-???-???-???-???-?? ?-???-???-???-???-???-? ??- 21w 4d 176 lb 8 oz 132/78 Negative -???- (more content not included)... Normal [facility] Dressing Room Attendant Office Visit Reporton 08-15-2023 Dressing Room Attendant Office Visit Report [facility] [address] [place] [address] OFFICE VISIT Date of Service: 08/15/23 MR#: [id number] Acct: [id number] Name: KATHLEEN POWELL NEEL Rep #: [id number] : 2005 Provider: Dr. Tiffanie Casillas DO Age/Sex: 18/F Location: [facility] Status: Signed Intake Vital Signs 06/18/23 08:46 07/14/23 09:46 08/15/23 11:10 Height 5 ft 5 in 5 ft 5 in 5 ft 5 in Weight: 176 lb 8 oz BMI 29.3 BP 132/78 H Intake Visit Reasons: 21 WK OB Chief Complaint: 21 Week OB Associate Entertainment Editor Required: No Is patient in pain?: No Allergies No Known Allergies Allergy (Verified 08/15/23 11:08) Medications ???Medication ???Instructions ???Recorded ???Confirmed ???Type ondansetron 4 mg disintegrating 4 mg PO Q6H PRN nausea and 05/07/23 08/15/23 Rx tablet vomiting #30 tabs PNV 178-FA 180 mcg-om3 35 mg-dha tab PO 05/16/23 08/15/23 History 25 mg-epa 5 mg-fish oil chew tablet Last Menstrual Period: 02/12/23 Zika: Zika virus screening: Negative : No PFSH PFSH Medical History Unknown varicella vaccination status Instability of right patellofemoral joint Right knee pain Instability of left patellofemoral joint Left knee pain Social History adopted: No household members: family 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 occupational status: employed 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 current occupational exposures/hazards: No pets and animals: Yes (Avoid litterbox) pets and animals: cat(s) and dog(s) history of recent travel: No sexually active: Yes Smoking Status: Former smoker Tobacco: How many years used: 6 Electronic Cigarette Use: with nicotine how long ago did patient quit smokin month ago alcohol intake: current alcohol intake frequency: holidays/special occasions only details: not while substance use type: marijuana well-balanced diet: daily or most days caffeine: No eating out: 1-3 times/week during the past year weight has: remained stable what type of physical activity do you participate in: none dimple/amish: None seatbelt use: always do you feel safe at home: Yes additional social history: FOB Chad Scott- not really involved History 1 Elective abortions Hx Para 0 Spontaneous abortions Hx # Term Pregnancies Ectopic pregnancies Hx # Pregnancies Multiple births # of living children HPI 21 WK OB Details: KATHLEEN POWELL is a 18 year old who presents for routine OB visit. OB Visit ANALI Calculator Estimated Delivery Date Method Current WG Current Estimate 12/22/23 Ultrasound #1 21w 4d Expected Delivery Route/Plan Labor Preferences- CB/BF classes: [] labor support person: [] labor intervention preferences: [] pain management options preferred: [] cut cord/dad catch: [] : [] PP control planned: [] discussed possible routes of delivery and associated risks: [] special requests: [] Specific Issue/Plans Covid status: [] Flu vaccine: [] Tdap vaccine: [] Rhogam: [] LARC form signed: [] Problem list reviewed and updated with the most current plan of care details and appropriate orders placed. Relevant counseling for the gestational age provided. Continue routine care and follow up unless otherwise noted in visit notes/problem list details Initial Weight: Not Recorded Date -???-???-???-???-???-?? ?-???-???-???-???-???-? ??- EGA Weight BP Urine Prot -???-???-???-???-???-?? ?-???-???-???-???-???-? ??- Glucose FHR FuHt Pres Dilation -???-???-???-???-???-?? ?-???-???-???-???-???-? ??- Effaced St Visit Note 05/20/23 -???-???-???-???-???-?? ?-???-???-???-???-???-? ??- 9w 1d 174 lb 2 oz 138/82 -???-???-???-???-???-?? ?-???-???-???-???-???-? ??- 168 -???-???-???-???-???-?? ?-???-???-???-???-???-? ??- KW- CRL cons with dates. NIPT requested 06/18/23 -???-???-???-???-???-?? ?-???-???-???-???-???-? ??- 13w 2d 172 lb 122/78 Negative -???-???-???-???-???-?? ?-???-???-???-???-???-? ??- Negative 175 -???-???-???-???-???-?? ?-???-???-???-???-???-? ??- RoniV- susanne i s low risk boy! no complaints today. encouraged to wear a mask at work. 07/14/23 -???-???-???-???-???-?? ?-???-???-???-???-???-? ??- 17w 0d 178 lb 6 oz 120/72 Negative -???-???-???-???-???-?? ?-???-???-???-???-???-? ??- Negative 154 -???-???-???-???-???-?? ?-???-???-???-???-???-? ??- -No VB. Mi ld cramping. States good support system in place. Involved with a yazdanism support group. Also at [facility]. Generalized itching sukhi thighs, arms. No rash. call if worsens. Try claritan. No pain. 08/15/23 -???-???-???-???-???-?? ?-???-???-???-???-???-? ??- 21w 4d 176 lb 8 oz 132/78 Negative (more content not included)... Normal [facility] Dressing Room Attendant Office Visit Reporton 07-14-2023 Dressing Room Attendant Office Visit Report [facility] [address] [place] [address] OFFICE VISIT Date of Service: 07/14/23 MR#: [id number] Acct: [id number] Name: KATHLEEN POWELL Rep #: [id number] : 2005 Provider: CORNELIA aguilar Age/Sex: 17/F Location: [facility] Status: Signed Intake Vital Signs 05/20/23 14:10 06/18/23 08:46 07/14/23 09:46 Height 5 ft 5 in 5 ft 5 in 5 ft 5 in Weight: 178 lb 6 oz BMI 29.7 BP 120/72 Intake Visit Reasons: 17 WK OB Chief Complaint: 17 Week OB Associate Entertainment Editor Required: No Is patient in pain?: No Allergies No Known Allergies Allergy (Verified 07/14/23 09:45) Medications ???Medication ???Instructions ???Recorded ???Confirmed ???Type ondansetron 4 mg disintegrating 4 mg PO Q6H PRN nausea and 05/07/23 07/14/23 Rx tablet vomiting #30 tabs PNV 178-FA 180 mcg-om3 35 mg-dha tab PO 05/16/23 07/14/23 History 25 mg-epa 5 mg-fish oil chew tablet Last Menstrual Period: 02/12/23 Zika: Zika virus screening: Negative : No PFSH PFSH Medical History Unknown varicella vaccination status Instability of right patellofemoral joint Right knee pain Instability of left patellofemoral joint Left knee pain Social History adopted: No household members: family current occupational status: employed 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 current occupational exposures/hazards: No pets and animals: Yes (Avoid litterbox) pets and animals: cat(s) and dog(s) history of recent travel: No sexually active: Yes Smoking Status: Former smoker Tobacco: How many years used: 6 Electronic Cigarette Use: with nicotine how long ago did patient quit smokin month ago alcohol intake: current alcohol intake frequency: holidays/special occasions only details: not while substance use type: marijuana well-balanced diet: daily or most days caffeine: No eating out: 1-3 times/week during the past year weight has: remained stable what type of physical activity do you participate in: none dimple/amish: None seatbelt use: always do you feel safe at home: Yes additional social history: FOB Chad Scott- not really involved History 1 Elective abortions Hx Para 0 Spontaneous abortions Hx # Term Pregnancies Ectopic pregnancies Hx # Pregnancies Multiple births # of living children HPI 17 WK OB Details: KATHLEEN POWELL is a 17 year old who presents for routine OB visit. OB Visit ANALI Calculator Estimated Delivery Date Method Current WG Current Estimate 12/22/23 Ultrasound #1 17w 0d Expected Delivery Route/Plan Labor Preferences- CB/BF classes: [] labor support person: [] labor intervention preferences: [] pain management options preferred: [] cut cord/dad catch: [] : [] PP control planned: [] discussed possible routes of delivery and associated risks: [] special requests: [] Specific Issue/Plans Covid status: [] Flu vaccine: [] Tdap vaccine: [] Rhogam: [] LARC form signed: [] Problem list reviewed and updated with the most current plan of care details and appropriate orders placed. Relevant counseling for the gestational age provided. Continue routine care and follow up unless otherwise noted in visit notes/problem list details Initial Weight: Not Recorded Date -???-???-???-???-???-?? ?-???-???-???-???-???-? ??- EGA Weight BP Urine Prot -???-???-???-???-???-?? ?-???-???-???-???-???-? ??- Glucose FHR FuHt Pres Dilation -???-???-???-???-???-?? ?-???-???-???-???-???-? ??- Effaced St Visit Note 05/20/23 -???-???-???-???-???-?? ?-???-???-???-???-???-? ??- 9w 1d 174 lb 2 oz 138/82 -???-???-???-???-???-?? ?-???-???-???-???-???-? ??- 168 -???-???-???-???-???-?? ?-???-???-???-???-???-? ??- KW- CRL cons with dates. NIPT requested 06/18/23 -???-???-???-???-???-?? ?-???-???-???-???-???-? ??- 13w 2d 172 lb 122/78 Negative -???-???-???-???-???-?? ?-???-???-???-???-???-? ??- Negative 175 -???-???-???-???-???-?? ?-???-???-???-???-???-? ??- XIOMARA- susanne i s low risk boy! no complaints today. encouraged to wear a mask at work. 07/14/23 -???-???-???-???-???-?? ?-???-???-???-???-???-? ??- 17w 0d 178 lb 6 oz 120/72 Negative -???-???-???-???-???-?? ?-???-???-???-???-???-? ??- Negative 154 -???-???-???-???-???-?? ?-???-???-???-???-???-? ??- MH-No VB. Mi ld cramping. States good support system in place. Involved with a yazdanism support group. Also at [facility]. Generalized itching sukhi thighs, arms. No rash. call if worsens. Try claritan. No pain. ACOG First Trimester First Trimester: Second Trimester Second Trimester: Signs and Sy (more content not included)... Normal [facility] Urine Drug Screen (VISTA)on 07-14-2023 AMPHETAMINES Negative Normal <1000 ng/mL [facility] Comment on above: Order Comment: Comme nts: Day #1 Reason for Laboratory Test Performed By: #### L 100.0500 #### [facility] [address] [place] [address] BARBITIURATES Negative Normal < 200 ng/mL [facility] Comment on above: Order Comment: Comme nts: Day #1 Reason for Laboratory Test Performed By: #### L 100.0500 #### [facility] [address] [place] [address] BENZODIAZIPINE Negative Normal < 200 ng/mL [facility] Comment on above: Order Comment: Comme nts: Day #1 Reason for Laboratory Test Performed By: #### L 100.0500 #### [facility] [address] [facility] [address] COCAINE Negative Normal < 300 ng/mL [facility] Comment on above: Order Comment: Comme nts: Day #1 Reason for Laboratory Test Performed By: #### L 100.0500 #### [facility] [address] [place] [address] ECSTACY Negative Normal < 500 ng/mL [facility] Comment on above: Order Comment: Comme nts: Day #1 Reason for Laboratory Test Performed By: #### L 100.0500 #### [facility] [address] [place] [id number] METHADONE Negative Normal < 300 ng/mL [facility] Comment on above: Order Comment: Comme nts: Day #1 Reason for Laboratory Test Performed By: #### L 100.0500 #### [facility] [address] [place], [address] OPIATES Negative Normal < 300 ng/mL [facility] Comment on above: Order Comment: Comme nts: Day #1 Reason for Laboratory Test Performed By: #### L 100.0500 #### [facility] [address] [place], [address] PCP Negative Normal < 25 ng/mL [facility] Comment on above: Order Comment: Comme nts: Day #1 Reason for Laboratory Test Performed By: #### L 100.0500 #### [facility] [address] [place], [address] THC Negative Normal < 50 ng/mL [facility] Comment on above: Order Comment: Comme nts: Day #1 Reason for Laboratory Test Performed By: #### L 100.0500 #### [facility] [address] [place], [address] VISTA UDS PH 5 Normal [facility] Comment on above: Order Comment: Comme nts: Day #1 Reason for Laboratory Test Performed By: #### L 100.0500 #### [facility] [address] [place], [address] Dressing Room Attendant Office Visit Reporton 06-18-2023 Dressing Room Attendant Office Visit Report [facility] [address] [place] [address] OFFICE VISIT Date of Service: 06/18/23 MR#: [id number] Acct: [id number] Name: KATHLEEN POWELL NEEL Rep #: [id number] : 2005 Provider: Dr. Tiffanie Casillas DO Age/Sex: 17/F Location: [facility] Status: Signed Intake Vital Signs 04/24/23 14:46 05/20/23 14:10 06/18/23 08:44 06/18/23 08:46 Height 5 ft 5 in 5 ft 5 in 5 ft 5 in 5 ft 5 in Weight: 172 lb BMI 28.6 BP 122/78 Intake Visit Reasons: 13 WK OB Associate Entertainment Editor Required: No Is patient in pain?: No Allergies No Known Allergies Allergy (Verified 06/18/23 08:44) Medications ondansetron 4 mg disintegrating tablet 4 mg PO Q6H PRN nausea and vomiting #30 tabs 05/07/23 [Rx Confirmed 06/18/23] PNV 178-FA 180 mcg-om3 35 mg-dha 25 mg-epa 5 mg-fish oil chew tablet tab PO 05/16/23 [History Confirmed 06/18/23] Last Menstrual Period: 02/12/23 Zika: Zika virus screening: Negative : No PFSH PFSH Medical History 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 Left knee pain Right knee pain Unknown varicella vaccination status Social History adopted: No household members: family current occupational status: employed 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 current occupational exposures/hazards: No pets and animals: Yes (Avoid litterbox) pets and animals: cat(s) and dog(s) history of recent travel: No sexually active: Yes Smoking Status: Former smoker Tobacco: How many years used: 6 Electronic Cigarette Use: with nicotine how long ago did patient quit smokin month ago alcohol intake: current alcohol intake frequency: holidays/special occasions only details: not while substance use type: marijuana well-balanced diet: daily or most days caffeine: No eating out: 1-3 times/week during the past year weight has: remained stable what type of physical activity do you participate in: none dimple/amish: None seatbelt use: always do you feel safe at home: Yes additional social history: FOB [employer] Scott- not really involved History 1 Elective abortions Hx Para 0 Spontaneous abortions Hx # Term Pregnancies Ectopic pregnancies Hx # Pregnancies Multiple births # of living children HPI 13 WK OB Details: KATHLEEN POWELL is a 17 year old who presents for routine OB visit. OB Visit ANALI Calculator Estimated Delivery Date Method Current WG Current Estimate 12/22/23 Ultrasound #1 13w 2d Expected Delivery Route/Plan Labor Preferences- CB/BF classes: [] labor support person: [] labor intervention preferences: [] pain management options preferred: [] cut cord/dad catch: [] : [] PP control planned: [] discussed possible routes of delivery and associated risks: [] special requests: [] Specific Issue/Plans Covid status: [] Flu vaccine: [] Tdap vaccine: [] Rhogam: [] LARC form signed: [] Problem list reviewed and updated with the most current plan of care details and appropriate orders placed. Relevant counseling for the gestational age provided. Continue routine care and follow up unless otherwise noted in visit notes/problem list details Initial Weight: Not Recorded Date -???-???-???-???-???-?? ?-???-???-???-???-???-? ??- EGA Weight BP Urine Prot -???-???-???-???-???-?? ?-???-???-???-???-???-? ??- Glucose FHR FuHt Pres Dilation -???-???-???-???-???-?? ?-???-???-???-???-???-? ??- Effaced St Visit Note 05/20/23 -???-???-???-???-???-?? ?-???-???-???-???-???-? ??- 9w 1d 174 lb 2 oz 138/82 -???-???-???-???-???-?? ?-???-???-???-???-???-? ??- 168 -???-???-???-???-???-?? ?-???-???-???-???-???-? ??- KW- CRL cons with dates. NIPT requested 06/18/23 -???-???-???-???-???-?? ?-???-???-???-???-???-? ??- 13w 2d 172 lb 122/78 Negative -???-???-???-???-???-?? ?-???-???-???-???-???-? ??- Negative 175 -???-???-???-???-???-?? ?-???-???-???-???-???-? ??- JV- susanne i s low risk boy! no complaints today. encouraged to wear a mask at work. ACOG First Trimester First Trimester: Second Trimester Second Trimester: Signs and Symptoms of Labor, Selecting a care provider, Reproductive Life Planning Contreception, Care Planning, Depression/Anxiety and Intimate Partner Violence; Discussed Tobacco Cessation Third Trimester Third Trimester: Pain Management Plans, Labor support person(s), Immediate Larc, Signs and Symptoms of Preeclampsia, Infant Feeding Yes , Education and Family Medical Leave or Disability Forms ROS Const Denies fe (more content not included)... Normal [facility] No Panel InformationOrdered By: Valentina Whittington on 05-30-2023 Hepatitis B Surface Antigen Non-Reactive Nonreactive [facility] Hepatitis C Antibody Non-Reactive Nonreactive [facility] Comment on above: Non Reactive: < 0.8 Equivocal: >/= 0.8 to < 1.0 Reactive: >/= 1.0The CDC requires that a reactive/equivocal HCV antibody result be sent out for confirmation. HCV Quant by PCR testing. Rubella IgG Antibody Equiv Nonreactive [facility] Comment on above: Antibody Results Int erpretation of Immune Status Non Reactive Presumed Non-Immune Equivocal Equivocal Reactive Presumed Immune Serum Treponema species anti body detectionOrdered By: Valentina Whittington on 05-30-2023 Treponema sp Ab Ql (S) Non-Reactive [facility] Serum Varicella zoster virus IgG antibody assay by immunoassay (units/volume)Ordered By: Valentina Whittington on 05-30-2023 VZV IgG IA Qn (S) 324 index Immune >165 [facility] Comment on above: Negative <135 Equivo joseph 135 - 165 Positive >165A positive result generally indicates exposure to thepathogen or administration of specific immunoglobulins,but it is not indication of active infection or stageof disease.Performed at: [address] [id number] Director: Herman Falcon PhD, Phone: [phone] Absolute lymphocyte countOrd ered By: Valentina Whittington on 05-27-2023 Lymphocytes Auto (Unsp spec) [#/Vol] 2.74 10*3/uL 0.83-4.51 [facility] Automated lymphocyte count a s percentage of total leukocytesOrdered By: Valentina Whittington on 05-27-2023 Lymphocytes/100 WBC Auto (Unsp spec) 22.7 % 25-45 [facility] Basophil percentageOrdered B y: Valentina Whittington on 05-27-2023 Basophils/100 WBC (Bld) 0.7 % 0-1 [facility] Eosinophils/100 WBC (Bld) 0.9 % 0-3 [facility] Hemoglobin (Bld) [Mass/Vol] 13.7 g/dL 12.0-15.0 [facility] Monocytes/100 WBC (Bld) 6.8 % 3-6 [facility] Neutrophils (Bld) [#/Vol] 8.3 10*3/uL 2.0-7.7 [facility] Neutrophils/100 WBC (Bld) 68.5 % 34-64 [facility] WBC (Bld) [#/Vol] 12.1 10*3/uL 4.5-13.0 [facility] Determination of erythrocyte mean corpuscular volume (MCV)Ordered By: Valentina Whittington on 05-27-2023 MCV (RBC) [Entitic vol] 84.0 fL 78-96 [facility] Erythrocyte distribution wid th ratioOrdered By: Valentina Whittington on 05-27-2023 Erythrocyte distribution width (RBC) [Ratio] 12.1 % 11.6-14.6 [facility] Erythrocyte distribution wid th standard deviationOrdered By: Valentina Whittington on 05-27-2023 Erythrocyte distribution width (RBC) [Entitic vol] 36.8 fL 35.1-43.9 [facility] HIV 1 and HIV-2 antibody ass ay with HIV-1 p24 antigen detectionOrdered By: Valentina Whittington on 05-27-2023 HIV 1+2 Ab+HIV1 p24 Ag IA Ql Non-Reactive Nonreactive [facility] Hematocrit Auto (Bld) [Volum e fraction]Ordered By: Valentina Whittington on 05-27-2023 Hematocrit (Bld) [Volume fraction] 39.9 % 37-46 [facility] Immature granulocytes/100 WB C Auto (Bld)Ordered By: Valentina Whittington on 05-27-2023 Immature granulocytes/100 WBC (Bld) 0.400 % 0.0-0.9 [facility] Comment on above: IG% - Immature Granu locytes (promyelocytes, myelocytes and metamyelocytes) > 1% indicates that a LEFT SHIFT is Present. Laboratory - Hematology and Cell countsOrdered By: Valentina Whittington on 05-27-2023 MCH (RBC) [Entitic mass] 28.8 pg 25.0-35.0 [facility] MCHC (RBC) [Mass/Vol] 34.3 g/dL 32-36 [facility] Nucleated RBC/100 WBC (Bld) [Ratio] 0 % 0-5 [facility] Platelet mean volume (Bld) [Entitic vol] 9.6 fL 6.2-12.0 [facility] Platelets (Bld) [#/Vol] 295 10*3/uL 150-450 [facility] RBC Auto (Bld) [#/Vol]Ordere d By: Valentina Whittington on 05-27-2023 RBC (Bld) [#/Vol] 4.75 10*6/uL 4.1-4.8 [facility] Chlamydia trachomatis rRNA d etection by probe and target amplification methodOrdered By: Valentina Whittington on 05-20-2023 C. trachomatis rRNA MARCUS+probe Ql (Unsp spec) Negative Negative [facility] Laboratory - Drug toxicology Ordered By: Valentina Whittington on 05-20-2023 Amphetamines Ql (U) Negative <1000 ng/mL [facility] Benzodiazepines Ql (U) Negative < 200 ng/mL [facility] Cannabinoids Screen Ql (U) Positive < 50 ng/mL [facility] Cocaine Ql (U) Negative < 300 ng/mL [facility] Opiates Ql (U) Negative < 300 ng/mL [facility] Laboratory - Microbiology an d Antimicrobial susceptibilityOrdered By: Valentina Whittington on 05-20-2023 N. gonorrhoeae DNA MARCUS+probe Ql (Unsp spec) Negative Negative [facility] Comment on above: Performed at: =[address] [id number] Director: Tori Hester MD, Phone: [phone] No Panel InformationOrdered By: Valentina Whittington on 05-20-2023 MDMA (Ecstasy) Screen Negative < 500 ng/mL [facility] Urine Barbiturates Screen Negative < 200 ng/mL [facility] Urine Drug Screen Comment [facility] Comment on above: CONFIRMATORY TESTING FOR ALL POSITIVE URINE DRUG SCREENRESULTS WILL ONLY BE SENT OUT UPON PHYSICIAN ORDER. VISTA Urine Drug Screen methods provide only preliminaryanalytical test results. A more specific alternate chemicalmethod must be used in order to obtain a confirmedanalytical result. Gas chromatography/mass spectrometery(GC/MS) is the preferred confirmatory method. Clinicalconsideration and professional judgement should be appliedto any drug of abuse test result, particularly whenpreliminary positive results are used. URINE TCA TESTING MUST BE ORDERED SEPARATELY. USE TESTMNEMONIC: [facility] Urine Methadone Screen Negative < 300 ng/mL [facility] Urine phencyclidine (PCP) de tectionOrdered By: Valentina Whittington on 05-20-2023 Phencyclidine Ql (U) Negative < 25 ng/mL [facility] Serum or plasma choriogonado tropin detectionOrdered By: Brianne Dickey on 04-19-2023 HCG ( test) Ql 841 mIU/mL <4 [facility] Comment on above: hCG levels with Gest ational AgeGestational Age hCG mIU/mL (IU/L)0.2 - 1 week 5 - 501-2 weeks 50 - 5002-3 weeks 100 - 07243-8 weeks 500 - 789608-9 weeks 1000 - 515785-4 weeks 04199 - 100,0006-8 weeks 92517 - 200,0002-3 months 84067 - 100,000 Absolute lymphocyte countOrd ered By: Aleisha Dawson on 04-16-2023 Lymphocytes Auto (Unsp spec) [#/Vol] 2.65 10*3/uL 0.83-4.51 [facility] Automated lymphocyte count a s percentage of total leukocytesOrdered By: Aleisha Dawson on 04-16-2023 Lymphocytes/100 WBC Auto (Unsp spec) 24.2 % 25-45 [facility] Basophil percentageOrdered B y: Aleisha Dawson on 04-16-2023 Basophils/100 WBC (Bld) 0.8 % 0-1 [facility] Eosinophils/100 WBC (Bld) 2.1 % 0-3 [facility] Hemoglobin (Bld) [Mass/Vol] 13.9 g/dL 12.0-15.0 [facility] Monocytes/100 WBC (Bld) 8.1 % 3-6 [facility] Neutrophils (Bld) [#/Vol] 7.0 10*3/uL 2.0-7.7 [facility] Neutrophils/100 WBC (Bld) 64.3 % 34-64 [facility] WBC (Bld) [#/Vol] 10.9 10*3/uL 4.5-13.0 [facility] Determination of erythrocyte mean corpuscular volume (MCV)Ordered By: Aleisha Dawson on 04-16-2023 MCV (RBC) [Entitic vol] 85.7 fL 78-96 [facility] Erythrocyte distribution wid th ratioOrdered By: Aleisha Dawson on 04-16-2023 Erythrocyte distribution width (RBC) [Ratio] 12.3 % 11.6-14.6 [facility] Erythrocyte distribution wid th standard deviationOrdered By: Aleisha Dawson on 04-16-2023 Erythrocyte distribution width (RBC) [Entitic vol] 38.5 fL 35.1-43.9 [facility] Hematocrit Auto (Bld) [Volum e fraction]Ordered By: Aleisha Dawson on 04-16-2023 Hematocrit (Bld) [Volume fraction] 41.4 % 37-46 [facility] Immature granulocytes/100 WB C Auto (Bld)Ordered By: Aleisha Dawson on 04-16-2023 Immature granulocytes/100 WBC (Bld) 0.500 % 0.0-0.9 [facility] Comment on above: IG% - Immature Granu locytes (promyelocytes, myelocytes and metamyelocytes) > 1% indicates that a LEFT SHIFT is Present. Laboratory - Hematology and Cell countsOrdered By: Aleisha Dawson on 04-16-2023 MCH (RBC) [Entitic mass] 28.8 pg 25.0-35.0 [facility] MCHC (RBC) [Mass/Vol] 33.6 g/dL 32-36 [facility] Nucleated RBC/100 WBC (Bld) [Ratio] 0 % 0-5 [facility] Platelet mean volume (Bld) [Entitic vol] 9.4 fL 6.2-12.0 [facility] Platelets (Bld) [#/Vol] 336 10*3/uL 150-450 [facility] RBC Auto (Bld) [#/Vol]Ordere d By: Aleisha Dawson on 04-16-2023 RBC (Bld) [#/Vol] 4.83 10*6/uL 4.1-4.8 [facility] Serum or plasma choriogonado tropin detectionOrdered By: Aleisha Dawson on 04-16-2023 HCG ( test) Ql 208 mIU/mL <4 [facility] Comment on above: hCG levels with Gest ational AgeGestational Age hCG mIU/mL (IU/L)0.2 - 1 week 5 - 501-2 weeks 50 - 5002-3 weeks 100 - 39978-9 weeks 500 - 848324-8 weeks 1000 - 745328-6 weeks 42817 - 100,0006-8 weeks 89486 - 200,0002-3 months 51878 - 100,000 Serum or plasma choriogonado tropin detectionOrdered By: Bladimir Langston on 04-14-2023 HCG ( test) Ql 110 mIU/mL <4 [facility] Comment on above: hCG levels with Gest ational AgeGestational Age hCG mIU/mL (IU/L)0.2 - 1 week 5 - 501-2 weeks 50 - 5002-3 weeks 100 - 49865-6 weeks 500 - 804121-9 weeks 1000 - 667330-5 weeks 14022 - 100,0006-8 weeks 87700 - 200,0002-3 months 45325 - 100,000 Vital Signs Date Time Vital Sign Value Performing Clinician Christine collins 03-04-2024 16:13-0500 Body height 165.1 cm No Primary Care Physician [facility] 03-04-2024 16:09-0500 Body mass index (BMI) [Percentile] Per age and sex 93.3 % No Primary Care Physician [facility] 03-04-2024 16:09-0500 Body mass index (BMI) [Ratio] 29.9 kg/m2 No Primary Care Physician [facility] 03-04-2024 16:09-0500 Body weight 81.64 kg No Primary Care Physician [facility] 03-04-2024 16:09-0500 Diastolic blood pressure 87 mm[Hg] No Primary Care Physician [facility] 03-04-2024 16:09-0500 Systolic blood pressure 137 mm[Hg] No Primary Care Physician [facility] 02-26-2024 02:05-0500 Body temperature 98.8 [degF] No Primary Care Physician [facility] 02-26-2024 02:05-0500 Diastolic blood pressure 86 mm[Hg] No Primary Care Physician [facility] 02-26-2024 02:05-0500 Heart rate 77 /min No Primary Care Physician [facility] 02-26-2024 02:05-0500 Respiratory rate 18 /min No Primary Care Physician [facility] 02-26-2024 02:05-0500 SaO2% (BldA) [Mass fraction] 99 % No Primary Care Physician [facility] 02-26-2024 02:05-0500 Systolic blood pressure 122 mm[Hg] No Primary Care Physician [facility] 02-26-2024 00:47-0500 Body mass index (BMI) [Percentile] Per age and sex 93.8 % No Primary Care Physician [facility] 02-26-2024 00:47-0500 Body mass index (BMI) [Ratio] 30.3 kg/m2 No Primary Care Physician [facility] 02-26-2024 00:47-0500 Body weight 82.6 kg No Primary Care Physician [facility] 05-20-2023 14:10-0400 Body height 165.1 cm No Primary Care Physician [facility] 05-20-2023 14:10-0400 Body mass index (BMI) [Percentile] Per age and sex 92.7 % No Primary Care Physician [facility] 05-20-2023 14:10-0400 Body mass index (BMI) [Ratio] 29 kg/m2 No Primary Care Physician [facility] 05-20-2023 14:10-0400 Body weight 78.98 kg No Primary Care Physician [facility] 05-20-2023 14:10-0400 Diastolic blood pressure 82 mm[Hg] No Primary Care Physician [facility] 05-20-2023 14:10-0400 Systolic blood pressure 138 mm[Hg] No Primary Care Physician [facility] 04-14-2023 21:32-0500 Heart rate 80 /min [facility] 04-14-2023 21:32-0500 Respiratory rate 16 /min [facility] 04-14-2023 21:32-0500 SaO2% (BldA) [Mass fraction] 99 % [facility] 04-14-2023 17:17-0500 Diastolic blood pressure 83 mm[Hg] [facility] 04-14-2023 17:17-0500 Systolic blood pressure 141 mm[Hg] [facility] 04-14-2023 16:39-0500 Body height 165.1 cm [facility] 04-14-2023 16:39-0500 Body mass index (BMI) [Percentile] Per age and sex 93.8 % [facility] 04-14-2023 16:39-0500 Body mass index (BMI) [Ratio] 29.7 kg/m2 [facility] 04-14-2023 16:39-0500 Body temperature 96.6 [degF] [facility] 04-14-2023 16:39-0500 Body weight 81.19 kg [facility] 05-27-2022 10:06-0400 Diastolic blood pressure 69 mm[Hg] [facility] 05-27-2022 10:06-0400 Heart rate 75 /min [facility] 05-27-2022 10:06-0400 Respiratory rate 16 /min [facility] 05-27-2022 10:06-0400 SaO2% (BldA) [Mass fraction] 99 % [facility] 05-27-2022 10:06-0400 Systolic blood pressure 108 mm[Hg] [facility] 05-27-2022 08:42-0400 Body height 165.1 cm [facility] 05-27-2022 08:42-0400 Body mass index (BMI) [Percentile] Per age and sex 92.6 % [facility] 05-27-2022 08:42-0400 Body mass index (BMI) [Ratio] 28.4 kg/m2 [facility] 05-27-2022 08:42-0400 Body temperature 98 [degF] [facility] 05-27-2022 08:42-0400 Body weight 77.56 kg [facility] Encounters Encounter Date Encounter Type Care Provider Facility Start: 03-04-2024 End: 03-04-2024 Patient encounter procedure Valentina Whittington CNM -[facility] Work Phone: Start: 03-04-2024 End: 03-04-2024 ambulatory No Primary Care Physician Facility:[facility] Start: 02-26-2024 End: 02-26-2024 [facility]: Start: 01-15-2024 End: 01-15-2024 ambulatory No Primary Care Physician Facility[facility] Start: 01-08-2024 End: 01-08-2024 ambulatory No Primary Care Physician [facility] Start: 01-08-2024 End: 01-08-2024 ambulatory Aleisha Dawson NP Facility:[facility] Start: 12-09-2023 End: 12-09-2023 ambulatory Brianne Dickey Facility:[facility] Start: 12-04-2023 ambulatory Brianne Leblanci lity:[facility] Start: 12-04-2023 End: 12-04-2023 ambulatory Brianne Dickey Facility:[facility] Start: 12-02-2023 End: 12-02-2023 ambulatory No Primary Care Physician [facility] Start: 12-02-2023 End: 12-02-2023 ambulatory No Primary Care Physician Facility:[facility] Start: 11-27-2023 End: 12-01-2023 Evaluation and management of inpatient Tiffanie Barrios Facility:[facility] Start: 11-27-2023 ambulatory Tiffanie Camara cility:[facility] Start: 11-27-2023 End: 11-27-2023 ambulatory Valentina Whittington Facility:[facility] Start: 11-25-2023 End: 11-25-2023 ambulatory Tiffanie Barrios Facility:[facility] Start: 11-25-2023 End: 11-25-2023 ambulatory Tiffanie Barrios Facility:[facility] Start: 11-21-2023 End: 11-21-2023 ambulatory Tiffanie Barrios Facility[facility] Start: 11-21-2023 End: 11-21-2023 ambulatory Tiffanie Barrios Facility:[facility] Start: 11-18-2023 End: 11-18-2023 ambulatory No Primary Care Physician [facility] Start: 11-14-2023 ambulatory Tiffanie Camara cility:[facility] Start: 11-14-2023 End: 11-14-2023 ambulatory Valentina Whittington Facility:[facility] Start: 11-14-2023 End: 11-14-2023 ambulatory No Primary Care Physician [facility] Start: 10-29-2023 End: 10-29-2023 ambulatory Aleisha Dawson [employer] Facility:[facility] Start: 10-19-2023 End: 10-19-2023 ambulatory No Primary Care Physician Facility:[facility] Start: 10-16-2023 End: 10-16-2023 ambulatory Valentina Whittington [facility] Start: 10-09-2023 ambulatory No Primary Car e Physician Facility:[facility] Start: 10-07-2023 End: 10-07-2023 ambulatory Brianne Dickey Facility:[facility] Start: 10-02-2023 End: 10-02-2023 ambulatory Aleisha Dawson [employer] Facility:[facility] Start: 10-02-2023 End: 10-02-2023 ambulatory Brianne Dickey Facility:[facility] Start: 09-12-2023 End: 09-12-2023 ambulatory Tiffanie Barrios Facility:[facility] Start: 08-15-2023 End: 08-15-2023 ambulatory Tiffanie Barrios Facility[facility] Start: 08-05-2023 End: 08-05-2023 ambulatory MD NO PRIMARY CARE [facility] Start: 07-14-2023 End: 07-14-2023 ambulatory Aleisha Dawson [employer] [place] Start: 07-14-2023 End: 07-14-2023 ambulatory Aleisha Dawson [employer] Facility:[facility] Start: 06-18-2023 End: 06-18-2023 ambulatory Tiffanie Mayrakateryna Hugh [facility] Start: 05-30-2023 End: 05-30-2023 ambulatory No Primary Care Physician [facility] Work Phone: Start: 05-30-2023 End: 05-30-2023 Patient encounter procedure No Primary Care Physician [facility]-Laboratory Work Phone: Start: 05-27-2023 End: 05-27-2023 ambulatory No Primary Care Physician [facility] Work Phone: Start: 05-27-2023 End: 05-27-2023 Patient encounter procedure No Primary Care Physician [facility]Laboratory Work Phone: Start: 05-20-2023 End: 05-20-2023 ambulatory No Primary Care Physician [facility] Work Phone: Start: 05-20-2023 End: 05-20-2023 Patient encounter procedure No Primary Care Physician [facility]-Laboratory, Specimen Work Phone: Start: 05-20-2023 End: 05-20-2023 Patient encounter procedure No Primary Care Physician [facility] Work Phone: Start: 05-01-2023 End: 05-01-2023 ambulatory [facility] Work Phone: Start: 05-01-2023 End: 05-01-2023 Patient encounter procedure [facility]-Ultrasound, H Work Phone: Start: 04-23-2023 End: 04-23-2023 ambulatory [facility] Work Phone: Start: 04-23-2023 End: 04-23-2023 Patient encounter procedure [facility] Ul[facility] Work Phone: Start: 04-19-2023 End: 04-19-2023 ambulatory [facility] Work Phone: Start: 04-19-2023 End: 04-19-2023 Patient encounter procedure [facility]Laboratory Work Phone: Start: 04-16-2023 End: 04-16-2023 Patient encounter procedure [facility] Work Phone: Start: 04-14-2023 End: 04-14-2023 Emergency department patient visit [facility]Emergency Department Work Phone: Start: 05-27-2022 End: 05-27-2022 Emergency department patient visit [facility]Emergency Department Procedures Date Procedure Procedure Detail Performing Clinician Start: 05-01-2023 Transvaginal obstetr ic ultrasonography Start: 04-23-2023 Transvaginal obstetr ic ultrasonography Start: 04-14-2023 Transvaginal obstetr ic ultrasonography Start: 05-27-2022 Radiologic examinati on of knee Plan of Treatment Date Care Activity Detail Author Start: 02-26-2024 [facility] CBC W Auto Different ial panel - Blood [facility] Hepatitis B surface antigen measurement [facility] Hepatitis C antibody measurement [facility] HIV 1+2 Ab+HIV1 p24 Ag [Presence] in Serum or Plasma by Immunoassay [facility] Patient Education [facility] Work Phone: Patient referral [facility] Work Phone: Rubella IgG measurement [facility] Treponema sp Ab [Pre sence] in Serum [facility] Immunizations Immunization Date Immunization Notes Care Provider Fa candidoty 10-02-2023 tetanus toxoid, redu richard diphtheria toxoid, and acellular pertussis vaccine, adsorbed No Primary Care Physician [facility] 04-10-2022 meningococcal B vacc ine, fully recombinant No Primary Care Physician [facility] 08-29-2020 meningococcal B vacc ine, fully recombinant No Primary Care Physician [facility] 08-29-2020 meningococcal polysaccharide (groups A, C, Y and W-135) diphtheria toxoid conjugate vaccine (MCV4P) No Primary Care Physician [facility] 04-27-2020 Human Papillomavirus 9-valent vaccine No Primary Care Physician [facility] 04-20-2019 Human Papillomavirus 9-valent vaccine No Primary Care Physician [facility] 12-19-2015 influenza, injectabl e, quadrivalent, preservative free No Primary Care Physician [facility] 08-22-2015 meningococcal polysaccharide (groups A, C, Y and W-135) diphtheria toxoid conjugate vaccine (MCV4P) No Primary Care Physician [facility] 08-22-2015 tetanus toxoid, redu richard diphtheria toxoid, and acellular pertussis vaccine, adsorbed No Primary Care Physician [facility] 11-29-2014 influenza, injectabl e, quadrivalent, preservative free No Primary [facility] Physician [facility] 01-03-2014 influenza, injectabl e, quadrivalent, preservative free No Primary Care Physician [facility] 12-21-2012 influenza, injectabl e, quadrivalent, preservative free No Primary Care Physician [facility] 03-16-2012 influenza, seasonal, injectable, preservative free No Primary Care Physician [facility] 12-21-2010 influenza, seasonal, injectable, preservative free No Primary Care Physician [facility] 12-30-2009 influenza, seasonal, injectable, preservative free No Primary Care Physician [facility] 08-18-2009 diphtheria, tetanus toxoids and acellular pertussis vaccine No Primary Care Physician [facility] 08-18-2009 measles, mumps and rubella virus vaccine No Primary Care Physician [facility] 08-18-2009 poliovirus vaccine, inactivated No Primary Care Physician [facility] 08-18-2009 varicella virus vaccine No [facility] Physician [facility] 02-27-2009 novel influenza-H1N1 -09, preservative-free, injectable No Primary Care Physician [facility] 01-26-2009 novel influenza-H1N1 -09, preservative-free, injectable No Primary Care Physician [facility] 12-06-2008 influenza, seasonal, injectable, preservative free No Primary Care Physician [facility] 08-13-2006 hepatitis A vaccine, pediatric/adolescent dosage, 2 dose schedule No Primary Care Physician [facility] 02-05-2006 influenza, injectabl e, quadrivalent, preservative free No Primary Care Physician [facility] 02-05-2006 poliovirus vaccine, inactivated No Primary Care Physician [facility] 02-05-2006 varicella virus vaccine No [facility] Physician [facility] 11-04-2005 diphtheria, tetanus toxoids and acellular pertussis vaccine No Primary Care Physician [facility] 11-04-2005 hepatitis A vaccine, pediatric/adolescent dosage, 2 dose schedule No Primary Care Physician [facility] 08-05-2005 haemophilus influenz ae type b conjugate and Hepatitis B vaccine No Primary Care Physician [facility] 08-05-2005 measles, mumps and rubella virus vaccine No [facility] [facility] 08[facility]2005 pneumococcal conjuga te vaccine, 7 valent No Primary Care Physician [facility] 02-04-2005 diphtheria, tetanus toxoids and acellular pertussis vaccine No Primary Care Physician [facility] 02-04-2005 haemophilus influenz ae type b vaccine, PRP-T conjugate No Primary Care Physician [facility] 02-04-2005 influenza, injectabl e, quadrivalent, preservative free No Primary Care Physician [facility] 02-04-2005 pneumococcal conjuga te vaccine, 7 valent No Primary Care Physician [facility] 2004 diphtheria, tetanus toxoids and acellular pertussis vaccine No Primary Care Physician [facility] 2004 haemophilus influenz ae type b vaccine, PRP-T conjugate No Primary Care Physician [facility] 2004 pneumococcal conjuga te vaccine, 7 valent No Primary Care Physician [facility] 2004 poliovirus vaccine, inactivated No Primary Care Physician [facility] 2004 diphtheria, tetanus toxoids and acellular pertussis vaccine No Primary Care Physician [facility] 2004 haemophilus influenz ae type b conjugate and Hepatitis B vaccine No Primary Care Physician [facility] 2004 pneumococcal conjuga te vaccine, 7 valent No Primary Care Physician [facility] 2004 poliovirus vaccine, inactivated No Primary Care Physician [facility] 2004 hepatitis B vaccine, pediatric or pediatric/adolescent dosage No Primary Care Physician [facility] Payers Date Payer Category Payer Self-pay [id number] 2023 Unknown [id number] [id number] 2004 Unknown [id number] 2.16. [id number] Unknown ANTHEM [id number] Unknown [id number] 2.16.8 40.1.375666.3.579.2.462 Unknown [id number] 2.16.8 40.1.380025.3.579.2.462 Unknown [id number] 2.16.8 40.1.458239.3.579.2.462 Unknown [id number] 2.16.8 40.1.214349.3.579.2.462 Unknown [id number] 2.16.8 40.1.022378.3.579.2.462 Unknown [id number] 2.16.8 40.1.487265.3.579.2.462 Unknown [id number] 2.16.8 40.1.426198.3.579.2.462 Unknown [id number] 2.16.8 40.1.529205.3.579.2.462 Unknown [id number] 2.16.8 40.1.257737.3.579.2.462 Unknown [id number] 2.16.8 40.1.977969.3.579.2.462 Unknown [id number] 2.16.8 40.1.694579.3.579.2.462 Unknown [id number] 2.16.8 40.1.462524.3.579.2.462 Unknown [id number] 2.16.8 40.1.660973.3.579.2.462 Unknown [id number] 2.16.8 40.1.608688.3.579.2.462 Unknown [id number] 2.16.8 40.1.522698.3.579.2.462 Unknown [id number] 2.16.8 40.1.252603.3.579.2.462 Unknown [id number] 2.16.8 40.1.452608.3.579.2.462 Unknown [id number] 2.16.8 40.1.487547.3.579.2.462 Unknown [id number] 2.16.8 40.1.202539.3.579.2.462 Unknown [id number] 2.16.8 40.1.563466.3.579.2.462 Unknown [id number] 2.16.8 40.1.128798.3.579.2.462 Unknown [id number] 2.16.8 40.1.805211.3.579.2.462 Unknown [id number] 2.16.8 40.1.760961.3.579.2.462 Unknown [id number] 2.16.8 40.1.612324.3.579.2.462 Unknown [id number] 2.16.8 40.1.848164.3.579.2.462 Unknown [id number] 2.16.8 40.1.294044.3.579.2.462 Unknown [id number] 2.16.8 40.1.143494.3.579.2.462 Unknown [id number] 2.16.8 40.1.532251.3.579.2.462 Unknown [id number] 2.16.8 40.1.717430.3.579.2.462 Unknown [id number] 2.16.8 40.1.669576.3.579.2.462 Unknown [id number] 2.16.8 40.1.502698.3.579.2.462 Unknown [id number] 2.16.8 40.1.584821.3.579.2.462 Unknown [id number] 2.16.8 40.1.804415.3.579.2.462 Unknown [id number] 2.16.8 40.1.994808.3.579.2.462 Unknown [id number] 2.16.8 40.1.649619.3.579.2.462 Unknown [id number] 2.16.8 40.1.847625.3.579.2.462 Unknown [id number] 2.16.8 40.1.507503.3.579.2.462 Unknown [id number] 2.16.8 40.1.904757.3.579.2.462 Unknown [id number] 2.16.8 40.1.439075.3.579.2.462 Unknown [id number] 2.16.8 40.1.731458.3.579.2.462 Social History Date Type Detail Facility Start: 05-27-2022 End: 05-20-2023 Tobacco smoking status NHIS Unknown if ever smoked [facility] Start: 04-18-[address] [facility] Start: 04-18-[address] [facility] Start: 2005 Sex Assigned At Female [facility] Start: 02-25-2024 Tobacco smoking status NHIS Ex-smoker (finding) [facility] Start: 05-31-2024 Sex Female (finding) [facility] NEGATED: Highlighted row [facility] Evaluation note 03-04-2024 Note Date & Type Note Facility 03-04-2024 Evaluation note Diagnosis Onset Date Resolution Nexplanon insertion acute Janua ry 2024 4:05pm [facility] Work Phone: Discharge summary note 12-01-2023 Note Date & Type Note Facility 12-01-2023 Note [facility] Medical Records Department [address] [place] [address] Discharge Summary 12/01/23 0836 MR#: [id number] Acct: [id number] Name: KATHLEEN POWELL NEEL Rep #: [id number] : 2005 18 From: Valentina Whittington CNM PCP: Care Physician,No Primary Status:ADM IN Location: [id number] Providers Date of Admission: 11/27/23 Date of Discharge: 12/01/23 Primary Care Physician: No Primary Care Phys Reason For Visit: Diagnosis Discharge Diagnosis (1) delivery delivered: Status: Acute Code(s): O82 - Encounter for delivery without indication Plan: s/p LTCS PPD # 3 1. routine post care 2. breast feeding- support given 3. rh positive 4. rubella immune 5. Discharge not approved at this time. (2) Late deceleration of heart rate: Status: Acute (3) Severe pre-eclampsia: Status: Acute Code(s): O14.10 - Severe pre-eclampsia, unspecified trimester Plan: increase labetalol to 200TID BPs twice daily at home follow up or friday this week in the office for bp check (4) Gestational hypertension: Status: Acute Code(s): O13.9 - Gestational [-induced] hypertension without significant proteinuria, unspecified trimester Qualifiers: Trimester: third trimester Qualified Code(s): O13.3 - Gestational [-induced] hypertension without significant proteinuria, third trimester (5) Contraception management: Status: Acute Code(s): Z30.9 - Encounter for contraceptive management, unspecified Qualifiers: Contraceptive encounter type: other general counseling and advice Qualified Code(s): Z30.09 - Encounter for other general counseling and advice on contraception (6) Not immune to rubella: Status: Acute Code(s): Z78.9 - Other specified health status (7) 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, in remission (8) Former electronic cigarette use: Status: Acute Code(s): Z87.891 - Personal history of nicotine dependence (9) Supervision of high-risk : Status: Acute Code(s): O09.90 - Supervision of high risk , unspecified, unspecified trimester Qualifiers: Trimester: third trimester Qualified Code(s): O09.93 - Supervision of high risk , unspecified, third trimester (10) : Status: Acute Code(s): Z34.90 - Encounter for supervision of normal , unspecified, unspecified trimester Qualifiers: Weeks of gestation: 36 weeks Qualified Code(s): Z3A.36 - 36 weeks gestation of Medications at Discharge Home Medications PNV 178-FA 180 mcg-om3 35 mg-dha 25 mg-epa 5 mg-fish oil chew tablet 1 tab PO DAILY 05/16/23 breast pump #1 ea 10/02/23 naproxen 500 mg tablet 500 mg PO BID PRN PRN Pain #30 tabs 11/28/23 oxycodone-acetaminophen 5 mg-325 mg tablet (Percocet) 1 tab PO Q6H PRN pain 7 days #20 tabs 11/28/23 labetalol 200 mg tablet 200 mg PO TID 30 days #90 tabs 12/01/23 Hospital Course Operations section Procedures None Summary of Care Provided Minutes Spent on Discharge: 30 Hospital Course: patient leaving AMA. Physical Exam Const alert, oriented x3 and no apparent distress Neck full ROM Resp normal respiratory effort, normal air movement and no retractions Effort and Inspection: able to speak in complete sentences and symmetric chest movement GI soft to palpation Inspection: incision intact Bladder / Kidney Exam: bladder normal to palpation Uterus Palpation: uterus fundus Extremity normal to inspection and full ROM Psych mental status grossly normal, thought process normal and cooperative Weight / BMI Weight Weight: 189 lb Body Mass Index (BMI) 31.4 ABG / Lab / Microbiology Data 11/29/23 05:30 D/C Instructions Discharge Diet: No restrictions May shower in (days): 0 May resume sexual activity in: 4-6 weeks Weight Bearing Status: Full weight bearing Call your doctor if your incision/area has: Continuous Slow Oozing, Sudden Increased Bleeding, Increased Pain/ Swelling, Increased Redness and Foul Smelling Discharge Call your doctor if you observe: Fever of 101 or Higher and Using more than 1 pad per hour (for 2 hours) Suture Line Care: Avoid Pulling/Pushing and Avoid Pinching/Bending Remove Dressing in: 1 week Cleanse incision/area with: Soap Water and Keep Dressing Clean Dry Please Follow Up With: Brianne Dickey MD When: Call [phone] to make an appointment for an incision check and blood pressure check on Friday Meaningful Use Info Meaningful Use Meaningful Use Diagnoses (Choose all that apply): None applicable Ischemic Stroke Statin Dosing Therapy Reference: STATIN DOSE THERAPY REFERENCE: * Patients > 75 years receive moderate or high dose statin therapy. * Patients 75 years or YOUNGER should receive H (more content not included)... [facility] Discharge summary 04-14-2023 Note Date & Type Note Facility 04-14-2023 Discharge summary Note Date/Time April 14, 2023 6:23pm [facility] Medical Records Department [address] [place] [address] Emergency Department Summary 04/14/23 MR#: [id number] Acct: [id number] Name: KATHLEEN POWELL NEEL Rep #:[id number] : 2005 17 From: Bladimir Langston DO PCP: Care Physician,No Primary Status :REG ER Location: ED HPI HPI - Female History of Present Illness Chief Complaint: Narrative Narrative: 17-year-old female G1 has an appointment with currently at about 3 to 4 weeks gestation. Patient states last period was about February 12. [facility] for [facility] of her . She had an ultrasound today which did not show any evidence of . Patient does not have any abdominal pain she is not nauseous she hasnot had any vaginal bleeding or spotting. She states that after they were interpreted ultrasound as normal they also told her that it was not what they expected to see at her level of gestation and sent her to the emergency room to rule out ectopic . I was able to speak with the tech on the phone and she states there was no ectopic noticed. She states she was sent to the ER for a quantitative hCG. 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 Left knee pain Right knee pain Home Medications NK 04/14/23 [History Last Taken Unknown] Allergy/AdvReac Type Severity Reaction Status Date / Time No Known Allergies Allergy Verified 04/14/23 16:38 Social History household members: significant other Smoking Status: Former smoker ROS ROS ED Constitutional Constitutional ED: Denies chills, fever(s) or sweats Eyes Eyes: Denies blurry vision or change in vision ENT ENT ED: Denies ear pain or sore throat Cardiovascular Cardiovascular: Denies chest pain, palpitations or racing heartbeat Respiratory/Chest Respiratory/Chest: Denies cough, dyspnea or sputum Gastrointestinal Gastrointestinal: Denies abdominal pain, constipation, diarrhea, nausea or vomiting Genitourinary Genitourinary ED: Denies dysuria, hematuria or urinary frequency Musculoskeletal Musculoskeletal: Denies arthralgias, myalgias or neck pain Integumentary Denies abscess, Abrasions or rash Neurologic Neurologic: Denies headache(s), paresthesias or weakness Psychiatric Psychiatric: Denies anxiety, depression, suicidal ideation or suicidal thoughts Endocrine Endocrinology: Denies polydipsia or polyuria EXAM Physical Exam Const Vital Signs: 04/14/23 16:39 04/14/23 17:17 Temperature 96.6 F L Temperature Source Temporal Pulse Rate 131 H Respiratory Rate 12 Blood Pressure 149/100 H 141/83 H Blood Pressure Mean 116 102 Pulse Ox 100 Oxygen Delivery Method Room Air Positive well nourished General Appearance ED: NAD HEENT Reports moist mucous membranes Eyes PERRL and EOMs intact bilaterally Neck no lymphadenopathy Chest Wall inspection of chest normal Resp normal respiratory effort Auscultation: Negative for rales, rhonchi or wheezes Cardio regular rate and regular rhythm GI normal to inspection, nondistended, normoactive bowel sounds Neuro oriented x3 and CN's II-XII intact bilaterally Sensorium / Orientation: alert Psych mental status grossly normal Skin no rashes or lesions noted MDM MDM MDM Narrative Medical decision making narrative: Patient presenting about 3 to 4 weeks gestation. She had ultrasound today whichultimately showed no intrauterine gestation. Did not show ectopic . Patient's not have any nausea, vomiting, abdominal pain, vaginal bleeding or spotting. She feels otherwise well. She reports that after her ultrasound was interpreted as unremarkable she was also counseled that she had to come to the emergency room for a CMP to rule out an ectopic . I was able to speak with them on the phone who states she was referred here by Dr. Dickey. After much discussion we will obtain a serum quantitative hCG. hCG came back 110. Spoke with Dr. Dickey at length regarding the patient's case. Patient tells me she was there for routine testing. She had not had any pain or symptoms. No vaginal bleeding. Apparently she was sent here because her ultrasound did not show anything however the patient tells me clearly that she is only 3 to 4 weeks gestation because that is when she has hadsex. Her last menstrual period was in January and however. This was discussedwith Dr. Dickey who is on-call and is the referring physician and she recommended highly that I rule out ectopic even though the patient is completely asymptomatic and in the light that the patient is only 3 to 4 weeks gestation. I discussed this with the patient at length. Transvaginal ultrasound was negative for obvious gestation. It is interpreted findings representing of unknown location. Discussed with Dr. Dickey and she wants the patient to follow-up with her on Friday of this week and have repeat hCG and office visit. This was discussed with patient. Impression: 1. First trimester Lab Data Attestation: I reviewed the patient's lab results. Labs: Laboratory Results - last 24 hr 04/14/23 18:29 HCG, Quant 110 H Radiography Diagnostic Testing: Clinical Impression(s) from Imaging Studies Obstetrics Ultrasound 04/14/23 19:05 IMPRESSION: No demonstration of intrauterine . Findings represent of unknown location. Ectopic cannot be excluded. In a hemodynamically stable patient, a follow-up sonographic examination in 7-10 days in combination with serial beta hCG levels is recommended. Electronically Signed: Randolph Thompson MD at 20:41 EST , Discharge Plan Triage Chief Complaint: ED Provider: Bladimir Langston Dx/Rx/DC Orders Instructions: ED Prescriptions: No Action NK Primary Care Provider: Care Physician,No Primary Referrals: Brianne Dickey MD [Med Staff - Active Staff] - 2 Days Care Physician,No Primary [Primary Care Provider] - Disposition Disposition: Home, Self Care What to do if you have Problems For any increased pain, shortness of breath, bleeding, nausea or vomiting, chestpain, or any unexpected problems, contact your Primary Care Provider. Call [facility] ([phone]) or report to the closest Emergency Room. Call 911 if necessary. 04/14/232116 <Electronically signed by Bladimir Langston DO> Cosigner Signature (if applicable): CC: No Primary Care Physician ~ Signed [facility] Work Phone: Discharge summary Note Date & Type Note Facility Discharge summary Note Date/Time May 27, 2022 8:56 am [facility] Medical Records Department [address] [place] [address] Emergency Department Summary 05/27/22 MR#: [id number] Acct: [id number] Name: KATHLEEN POWELL Rep #:[id number] : 2005 16 From: Young Pickering MD PCP: Dr. Josey Chacon MD Status:REG ER Location: ED HPI History of Present Illness Chief Complaint: Lower Extremity Injury Informant: patient and parent Onset/Context/Timing Onset: Yesterday Context: Sudden Onset Timing: Continuous Quality of Pain: Aching Location: Right knee Current Severity: Moderate Maximum Severity: Severe Worsened by: Walking, bending/moving Relieved by: Remaining still Associated Symptoms Associated Symptoms: Negative for Parasthesia or Weakness Narrative Narrative: Patient states she was getting out of the shower, which is a shower-bathtub combo, last night, her left lower extremity was out of the bathtub and her rightfoot slipped in the tub before she could get out of bed, twisting her knee a little and hitting the medial aspect of it on the side of the tub very hard. She states she has had pain ever since, swelling worsened this morning so she presents for evaluation. Able to walk but very painful difficult to do so. No other injuries. PFSH PFSH Medical History no medical history no medical history Home Medications ondansetron 4 mg disintegrating tablet 4 mg PO Q8H PRN PRN Nausea #10 tabs 04/18/20 [Rx Last Taken Unknown] naproxen 500 mg tablet 500 mg PO BID PRN pain #14 tabs 05/27/22 [Rx Last Taken Unknown] Allergy/AdvReac Type Severity Reaction Status Date / Time No Known Allergies Allergy Verified 05/27/22 08:44 Social History Smoking Status: Never smoker ROS ROS ED Constitutional Constitutional ED: Denies chills or fever(s) Musculoskeletal Musculoskeletal: Reports extremity pain; Denies neck pain Integumentary Denies Abrasions, rash or wounds Neurologic Neurologic: Denies paresthesias or weakness EXAM Physical Exam Const Vital Signs: 05/27/22 08:42 Temperature 98.0 F Temperature Source Temporal Pulse Rate 106 H Respiratory Rate 16 Blood Pressure 133/88 H Blood Pressure Mean 103 Pulse Ox 97 Oxygen Delivery Method Room Air Positive well nourished and well developed General Appearance ED: well developed and NAD Neck full ROM and supple Back/Spine normal ROM and normal to inspection Extremity Extremity Narrative: Right knee: Limited range of motion, some swelling consistent with effusion. Extensor mechanism intact but not able to fully extend due to pain. Tenderness anteriorly including the patella, and the medial joint line but not laterally orat the tibial tuberosity. Joint is stable. No deformities. No excessive warmth or erythema. Stressing all ligaments within the limits of the exam due to her limited range of motion yields little discomfort, no laxity, stable. Full range of motion all other joints without difficulty, all compartments soft and nondistended. Neuro oriented x3, no focal motor deficits and no sensory deficits noted Sensorium / Orientation: alert Psych mental status grossly normal and thought process normal Skin no wounds Rashes: no rashes MDM MDM MDM Narrative Medical decision making narrative: X-rays of the right knee were obtained, 4 views of my interpretation show very small avulsion fracture medial aspect of the patella,. And consistent with a joint effusion which she appears to have clinically. Reviewed the radiology report which is consistent with this. I will place the patient in an Gibran wrap give her crutches and have her follow-up with orthopedics, this does not appear to be likely surgical, but my main concern to have her follow-up is the effusionwhich the avulsion fracture should not necessarily be causing, and she may need to be evaluated for an internal derangement or meniscus injury if her swelling and pain do not resolve with supportive care. Radiography Diagnostic Testing: Clinical Impression(s) from Imaging Studies Knee X-Ray 05/27/22 09:10 IMPRESSION: Avulsion fracture along the medial aspect of the patella with a joint effusion with a fluid/fluid level and prepatellar soft tissue swelling. Electronically Signed: Durga Robbins MD at 9:36 EDT , Discharge Plan Triage Chief Complaint: Lower Extremity Injury ED Provider: Ladan,Young Dx/Rx/DC Orders Clinical Impression: Knee effusion, right, Closed fracture of right patella, Sprain of right knee Instructions: ED Meniscal Injury Knee Poss Prescriptions: New naproxen 500 mg tablet 500 mg PO BID PRN (Reason: pain) Qty: 14 0RF No Action ondansetron 4 MG tablet 4 mg PO Q8H PRN PRN (Reason: Nausea) Qty: 10 0RF Primary Care Provider: Josey Chacon Referrals: Josey Chacon MD [Primary Care Provider] - Edy Rome DO [Med Staff - Active Staff] - As soon as possible (call for appt) Disposition Disposition: Home, Self Care What to do if you have Problems For any increased pain, shortness of breath, bleeding, nausea or vomiting, chestpain, or any unexpected problems, contact your Primary Care Provider. Call [facility] ([phone]) or report to the closest Emergency Room. Call 911 if necessary. 05/27/22 0950 <Electronically signed by Young Pickering MD> Cosigner Signature (if applicable): CC: Dr. Josey Chacon MD; Dr. 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 acute Supervision of high-risk acute Unknown varicella vaccination status acute [facility] Work Phone: Evaluation note Note Date & Type Note Facility Evaluation note Diagnosis Onset Date Former electronic cigarette use acute Marijuana smoker in remission acute acute Supervision of high-risk acute [facility] Work Phone: Reason for referral (narrative) Note Date & Type Note Facility Reason for referral (narrative) No reason for referral information available [facility] Work Phone: Chief Complaint and Reason for Visit Chief Complaint RIGHT KNEE PAIN Chief Complaint Chief Complaint E-ORDER SUPERVISION OF Chief Complaint E-ORDER SUPERVISION OF with inconclusive viability, not a Chief Complaint E-ORDER SUPERVISION OF with inconclusive viability, not a [place] ANALI 12/21/23 Reason for Visit Former electronic ci garette use Marijuana smoker in remission Supervision of high-risk Unknown varicella vaccination status Chief Complaint E-ORDER SUPERVISION OF with inconclusive viability, not a [place] ANALI 12/21/23 E-ORDER AND PANORMAS PANEL E ORDERS Reason for Visit Former electronic ci garette use Marijuana smoker in remission Supervision of high-risk Chief Complaint Admit Date hives February 26, 2024 12 :46am Nexplanon insertion March 04, 2024 4: 05pm Reason for Visit Admit Date Nexplanon insertion March 04, 2024 4: 05pm Advance Directives No Advanced Directives Records Found Advance Directive Response Recorded Date/ Time Living Will No April 14 5:16pm Power of Bird Cage Assembler No April 14, 2023 5:16pm Advance Directive Response Recorded Date/ Time Living Will No March, 024 2:46pm Power of Bird Cage Assembler No April 24, 2023 2:46pm Advance Directive Response Recorded Date/ Time Living Will No March 2 024 3:46pm Power of Bird Cage Assembler No April 24, 2023 3:46pm Advance Directive Response Recorded Date/ Time Living Will No February 25 1:50am Do you have a Healthcare Power of Bird Cage Assembler? No February 26, 2024 1:50am Summary Purpose Family History No Family History Records FoundNo Family History Records Found Additional Source Comments Care Teams (unrecognized sec tion and content) Team Status: Active Member Role Status Dates Dr. Josey Chacon MD Family Provider Active Dr. Josey Chacon MD Primary Care Provider Active Team Status: Inactive Member Role Status Dates Dr. Josey Chacon MD Primary Care Provider Active Dr. Young Pickering MD Emergency Provider Active Team Status: Active Member Role Status Dates Dr. Josey Chacon MD Family Provider Active No Primary Care Physician Primary Care Provider Active Team Status: Inactive Member Role Status Dates Dr. Bladimir Langston DO Emergency Provider Active No Primary Care Physician Primary Care Provider Active Team Status: Inactive Member Role Status Dates Dr. Bladimir Langston DO Attending Provider, Emergency Provider Active No Primary Care Physician Primary Care Provider Active Team Status: Inactive Member Role Status Dates No Primary Care Physician Primary Care Provider Active Aleisha Dawson CUSTOMER EXPERIENCE PROFESSIONAL, CUSTOMER EXPERIENCE PROFESSIONAL-C Attending Provider, Referring Provider Active Team Status: Active Member Role Status Dates No Primary Care Physician Primary Care Provider Active Dr. Brianne Dickey MD Attending Provider, Referr ing Provider Active Team Status: Inactive Member Role Status Dates No Primary Care Physician Primary Care Provider Active Dr. Brianne Dickey MD Attending Provider, Referr ing Provider Active Team Status: Inactive Member Role Status Dates No Primary Care Physician Primary Care Provider, Refer ring Provider Active Valentina Whittington CNM Attending Provider Active Team Status: Inactive Member Role Status Dates No Primary Care Physician Primary Care Provider Active Valentina Whittington CNM Attending Provider, Referring Pro vider Active Team Status: Active Member Role Status Dates No Primary Care Physician Primary Care Provider Active Valentina Whittington CNM Attending Provider, Referring Pro vider Active Team Status: Inactive Member Role Status Dates No Primary Care Physician Primary Care Provider Active Start: February 26, 2024 End: February 26, 2024 Dr. Jaime Calderon DO Attending Provider Activ e Start: February 26, 2024 End: February 26, 2024 Dr. Jaime Caldreon DO Emergency Provider Activ e Start: February 26, 2024 End: February 26, 2024 Team Status: Inactive Member Role Status Dates No Primary Care Physician Primary Care Provider Active Start: March 04, 2024 End: March 04, 2024 No Primary Care Physician Referring Provider Active Start: March 04, 2024 End: March 04, 2024 Valentina Whittington CNM Attending Provider Active S tart: March 04, 2024 End: March 04, 2024 Goals (unrecognized section and content) Goals may be documented in a n alternate sectionGoals may be documented in an alternate sectionGoals may be documented in an alternate sectionGoals may be documented in an alternate sectionGoals may be documented in an alternate sectionGoals may be documented in an alternate sectionGoals may be documented in an alternate sectionGoals may be documented in an alternate sectionGoals may be documented in an alternate section INFORMATION SOURCE (unrecogn ized section and content) DATE CREATED AUTHOR 08/05/2023 [facility] DATE CREATED AUTHOR AUTHOR'S SHAYY ATION 05/31/2024 [facility] FOR RECORDS PERTAINING TO PATIENTS WHO ARE [...] BE BASED ON THE PRIMARY CLINICAL RECORDS. [facility]. provides no warranty or guarantee of the accuracy or completeness of information in this document.
[2024-09-25 16:19] VITALS: BP 152/90; PULSE 90; RESP 18; TEMP 37.1; O2SAT 99
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
== END 2024-09-25 16:44 | disposition home or self-care (01) ==
PROVIDERS: Emergency Provider Emergency Medicine; Visit Provider Emergency Medicine
DX: S89.91XA Unspecified injury of right lower leg, initial encounter (principal); M25.461 Effusion, right knee; F17.210 Nicotine dependence, cigarettes, uncomplicated; Y04.8XXA Assault by other bodily force, initial encounter
CPT/HCPCS: 73564; 99282